=== PATIENT | female | born 1960 | race Caucasian/White ===

== ENCOUNTER → 2024-06-13 | Outpatient (CLI) | payer BC, SELFPAY ==
[2024-06-13 12:43] LABS: Absolute Lymphocyte Count 1.45 X10^3/uL (0.83-4.51); Absolute Neutrophil Count 3.7 X10^3/uL (2.0-7.7); Basophil# 0.05 X10^3/uL; Basophil% 0.9 % (0-1); Eosinophil# 0.17 X10^3/uL; Eosinophils% 2.9 % (0-5); Hematocrit 44.4 % (37-47); Hemoglobin 14.6 g/dL (12.0-15.0); Lymphocyte # 1.45 X10^3/ul (0.83-4.51); Mean Corp Hgb Conc 32.9 g/dL (32-36); Mean Corpuscular Hgb 31.3 pg (27.0-32.0); Mean Corpuscular Volume 95.1 fL (81-99); Mean Platelet Vol. 8.7 fl (6.2-12.0); Monocyte# 0.38 X10^3/uL; Monocyte% 6.6 % (0-10); NRBC Flagged by Analyzer 0 % (0-5); Neutrophil # 3.73 X10^3/uL (2.7-7.7); Neutrophil % 64.3 % (47-70); Platelet Count 271 K/mm3 (150-450); RBC Distribution Width CV 12.5 % (11.6-14.6); RBC Distribution Width SD 43.5 fl (35.1-43.9); Red Blood Count 4.67 M/mm3 (4.2-5.4); White Blood Count 5.8 K/mm3 (4.4-11.0)
[2024-06-13 14:21] LABS: ALB/GLOB Ratio 1.6 RATIO (0.9-2.4); AST(SGOT) 22 U/L (<=31); Alanine Aminotransfer ALT/SGPT 21 U/L (<=34); Albumin, Serum 4.4 g/dL (3.4-4.8); Alkaline Phosphatase 73 U/L (35-104); Anion Gap 11 (5-15); BUN 16 mg/dL (4-19); BUN/Creat Ratio 20.3 RATIO (10-20); Calcium,Total 9.2 mg/dL (7.6-11.0); Carbon Dioxide 28.1 mmol/L (21.0-32.0); Chloride 104 mmol/L (98-108); EST Glomerular Filtration Rate 81 (>60); Globulin 2.8 g/dL (2.2-4.2); Glucose 95 mg/dL (70-99); Potassium 4.4 mmol/L (3.3-5.1); Protein, Total 7.2 g/dL (5.9-8.4); Sodium Level 142 mmol/L (133-145); Total Bilirubin 0.48 mg/dL (0.00-1.30)
[2024-06-15 05:07] LABS: CRP, High Sensitivity 2.98 mg/L (0.00-3.00)
== END | disposition home or self-care (01) ==
PROVIDERS: Referring Provider Nurse Practitioner Family; Visit Provider Nurse Practitioner Family
DX: R07.9 Chest pain, unspecified (principal)
CPT/HCPCS: 80053; 85025; 86141

== ENCOUNTER → 2024-06-15 | Outpatient (CLI) | payer BC, SELFPAY ==
--- NOTE | 2024-06-15 07:27 | BI_ITS ---
EXAM: SCRN MAMM (CAD)W/JELENA BILAT 06/15/2024 CLINICAL HISTORY: F, Age 63 y/o , BREAST CANCER SCREENING TECHNIQUE: Bilateral screening digital breast tomosynthesis with 2D and 3D images. Computer aided detection. COMPARISON: Prior exam(s) dated 01/25/2024, 01/21/2023.. FINDINGS: TISSUE DENSITY: The breast tissue is composed of scattered area of fibroglandular density. Bilateral Breast Mammographic Findings: No significant masses, calcifications or other abnormalities are identified. BI/SCRN MAMM (CAD)W/JELENA BILAT IMPRESSION: Right Breast: BIRADS 1 NEGATIVE. Left Breast: BIRADS 1 NEGATIVE. OVERALL FINAL ASSESSMENT: BIRADS 1 NEGATIVE. RECOMMENDATION: Routine annual follow-up in 1 Year A letter with findings and recommendations will be mailed to the patient. Reading Location: [id number]
== END | disposition home or self-care (01) ==
LOC: OPBI 07:26
PROVIDERS: PCP Nurse Practitioner Family; Referring Provider Nurse Practitioner Family; Visit Provider Nurse Practitioner Family
DX: Z12.31 Encounter for screening mammogram for malignant neoplasm of breast (principal)
CPT/HCPCS: 77063; 77067

== ENCOUNTER → 2024-06-28 | Outpatient (CLI) | payer BC, SELFPAY ==
--- NOTE | 2024-06-28 12:17 | CT_ITS ---
PROCEDURE: ABDOMEN/PELVIS WITH CONTRAST 06/28/2024 REASON FOR EXAM: Right-sided abdominal pain. Gastroesophageal reflux. Prior partial colon resection. TECHNIQUE: Abdomen and pelvis CT with intravenous contrast. Coronal and Sagittal reconstruction series were provided. PATIENT PREPARATION: Per protocol ORAL CONTRAST TYPE: Oral contrast was given. CONTRAST: Isovue-300 VOLUME: 100 mL One or more dose reduction techniques were used (e.g., Automated exposure control, adjustment of the mA and/or kV according to patient size, use of iterative reconstruction technique. RADIATION DOSE SUMMARY: CTDlvol: 11.2 mGy DLP: 1043.99 mGycm COMPARISON: None FINDINGS: Lung bases: Mild dependent atelectasis Liver: Normal size. No mass. Gallbladder: Surgically absent. Spleen: Normal size. Pancreas: Normal size without evidence of mass surrounding inflammation or ductal dilation. Adrenals: Unremarkable Kidneys: Minimal bilateral renal fullness although no evidence of hydronephrosis. Bladder: Unremarkable Reproductive Organs: Prior hysterectomy. Adnexal regions are unremarkable. Bowel: No bowel obstruction. Appendix: Surgically absent. Lymph nodes: Unremarkable. Vasculature: The abdominal aorta and IVC are normal. Peritoneum / Retroperitoneum: Unremarkable Bones: Degenerative changes of the spine. CT/Abdomen/Pelvis WITH Contrast IMPRESSION: Mild fatty infiltration of the liver. Status post cholecystectomy and hysterectomy. Status post appendectomy. Reading Location: [place] [id number]
== END | disposition home or self-care (01) ==
PROVIDERS: PCP Nurse Practitioner Family; Referring Provider Student in an Organized Health Care Education/Training Program; Visit Provider Student in an Organized Health Care Education/Training Program
DX: R10.9 Unspecified abdominal pain (principal); Z87.19 Personal history of other diseases of the digestive system
CPT/HCPCS: 74177; Q9967; A4216

== ENCOUNTER 2024-08-24 12:09 | Day surgery (SDC) | payer MEDICARE, SELFPAY ==
[2024-08-24] VITALS (9 sets, daily range): BP systolic 96–128; BP diastolic 58–79; PULSE 64–97; RESP 16–18; TEMP 36.6–36.8; O2SAT 94–100; BMI 27.8
--- NOTE | 2024-08-24 12:50 | PRE.ANES_ITS ---
ASA Classification* ASA Classification ASA Classification: 2 Assessment & Plan Anesthesia* Anesthesia Assessment Anesthesia Assessment: Discussed sedation and/or anesthesia options, risks, benefits, and alternatives with patient/parents/legal guardian/POA. Questions invited. The patient/parents/legal guardian/POA seems to understand and agrees to proceed with anesthesia plan. Reviewed the physical assessment, medical history, allergy history and patient home medications list prior to surgery/procedure/anesthetic and documented any changes. Performed airway and anesthesia risk assessments. Anesthesia Type Anesthesia Type: MAC Anesthesia Focused Assessment* Temperature: 98.3 F Pulse Rate: 64 Blood Pressure: 128/79 Respiratory Rate: 16 Pulse Ox: 96 Airway Assessment Mouth opens: >3 cm Mallampati Score: II Labs Anesthesia Preop lab: CBC WBC 5.8 K/mm3 (4.4-11.0) 06/13/24 10:53 06/13/24 RBC 4.67 M/mm3 (4.2-5.4) 06/13/24 10:53 06/13/24 Hgb 14.6 g/dL (12.0-15.0) 06/13/24 10:53 06/13/24 Hct 44.4 % (37-47) 06/13/24 10:53 06/13/24 Plt Count 271 K/mm3 (150-450) 06/13/24 10:53 06/13/24 CHEMISTRY Potassium 4.4 mmol/L (3.3-5.1) 06/13/24 10:53 06/13/24 Sodium 142 mmol/L (133-145) 06/13/24 10:53 06/13/24 BUN 16 mg/dL (4-19) 06/13/24 10:53 06/13/24 Creatinine 0.80 mg/dL (0.70-1.20) 06/13/24 10:53 06/13/24 Glucose 95 mg/dL (70-99) 06/13/24 10:53 06/13/24 COAG Pre-Assessment Diagnosis/Proposed Procedure Planned Operative Procedure(s): EGD, CSCOPE Anesthesia History 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 When Was Last Pacemaker Check QUESTION #4 FULL TEXT: You/Your Family Experience fever (hyperthermia) with Anesthesia Last Oral Intake Last Oral intake: Last Oral Intake NPO since Meds taken in AM with sips of water? Meds patient instructed to take am of surgery PONV PONV - sales project manager: PONV - sales project manager Female Yes 08/21/24 14:28 HX of Motion Sickness No 08/21/24 14:28 HX of N/V After Surgery No 08/21/24 14:28 Non-Smoker Yes 08/21/24 14:28 Duration of Surgery greater No 08/21/24 14:28 than 60 minutes Number of Risk Factors 2 08/21/24 14:28 PONV Score Moderate Risk 08/21/24 14:28 Height & Weight Height & Weight: Anesthesia: Height & Weight Height 6 ft 08/24/24 12:15 Weight: 93 kg 08/24/24 12:15 Body Mass Index (BMI) 27.8 08/24/24 12:15 Respiratory Assessment Respiratory Assessment - sales project manager: Respiratory Tract Infection Hx - sales project manager Hx Respiratory Tract Infection No 08/21/24 14:28 STOP Sleep Apnea STOP Sleep Apnea - sales project manager: STOP Sleep Apnea - sales project manager Hx Hypertension No 08/21/24 14:28 Hx Sleep Apnea No 08/21/24 14:28 CPAP BIPAP Do you snore loudly (louder No 08/21/24 14:28 than talking or can be heard Do you often feel tired/ No 08/21/24 14:28 fatigued/ sleepy during daytime? Has anyone observed you stop No 08/21/24 14:28 breathing during sleep? STOP Results Negative 08/21/24 14:28 QUESTION #5 FULL TEXT : Do you snore loudly (louder than talking or can be heard through closed doors)? Tobacco Use History Tobacco Use History - sales project manager: Tobacco Use History - sales project manager Tobacco Use Smoking Status Never smoker 08/21/24 14:28 Hx Tobacco Use No 08/21/24 14:28 Years Smoking Packs Smoked per Day Smoking Cessation Date was within the last 15 years Hx Smoking Cessation Date Hx Smoking Cessation Counseling Hematologic Medial History Hematologic Hx - sales project manager: Hematologic Medical Hx - director operating room Hx of Blood Transfusion No 08/21/24 14:28 Hx of Transfusion in last 3 No 08/21/24 14:28 Months Date of Last Transfusion (if within last 3 months) Ever experience any problems No 08/21/24 14:28 with transfusion(s)? Specify any problems Hx of Preganancy in last 3 N/A 08/21/24 14:28 Months Nurse Filling Out Transfusion NBUCHER 08/21/24 14:28 & Questions: Date: 08/21/24 08/21/24 14:28 Time: 14:29 08/21/24 14:28 Patient unable to answer at this time (ie. confused, unrespo /Reproduction History /Reproductive History - sales project manager: /Reproductive Hx- sales project manager Hx Now No 08/21/24 14:28 Gestational Age (in weeks): EDC: Hx Hx Para Hx Section SAB No 08/21/24 14:28 Active Medications Active Medications: Current Medications Generic Name Dose Route Start Last Admin Trade Name Freq PRN Reason Stop Dose Admin Lactated Ringer's 1,000 mls @ 15 mls/hr 08/24/24 12:30 IV .Q48H JON PFSH Medical History Hypothyroid Arthritis Thyroid disease Migraine headache History of diverticulitis Asthma Non-smoker History of stress test Home Medications ?Medication ?Instructions ?Recorded ?Last Taken ?Type levothyroxine 112 mcg tablet 112 mcg PO QDAY 06/12/24 08/24/24 05:00 History (Synthroid) polyethylene glycol 3350 17 4 g PO ONCE 06/12/24 Unkno wn History gram/dose oral powder (Miralax) sodium,potassium,mag sulfates 17.5 See Rx Instructions PO .COMPLEX 06/12/24 Unknown Rx gram-3.13 gram-1.6 gram oral soln #354 mL (Suprep Bowel Prep Kit) cabergoline 0.5 mg tablet 0.25 mg PO ZHAO 08/21/24 Unkno wn History Allergy/AdvReac Type Severity Reaction Status Date / Time penicillin G Allergy Other Verified 08/21/24 14:27 Surgical History History of appendectomy (02/10/09) History of hand surgery (12/09/22) History of left breast biopsy (01/23/12) History of cholecystectomy (09/10/18) History of umbilical hernia repair (03/11/11) History of colon resection (02/10/09) History of hernia repair (01/21/03) History of bunionectomy of left great toe History of hysterectomy (09/09/98) History of esophagogastroduodenoscopy (EGD) History of colonoscopy Review of Systems (Anesthesia) ROS Narrative System reviewed and no additional complaints, except as documented.
[2024-08-24] MEDS: Lactated Ringers 1,000 ML 15 ML IV (12:59)
--- NOTE | 2024-08-24 13:15 | EGD_PTH ---
PATIENT: KILEY SANCHEZ LOC: EN U#:[id number] AGE/SX: 63/F ROOM: RE08/24/[address]: Dr. Dante Villela DO : 1960 BED: DIS: 08/24/2024 SPEC #: [id number] RECD: 08/27/24 07:14 STATUS: RAFITA REPankaj #: [id number] REUBEN: 08/24/24 13:[address]: Dante Villela DEPT: SURGICAL PATHOLOGY RECD BY: Bello Amador ENTERED: 08/27/24 08:35 SP TYPE: EGD BIOPSY OT DR: Maile Chun, IT QUALITY ANALYST-C Tissues: A - Duodenum, NOS B - Duodenum, NOS C - Gastric mucous membrane D - Esophagus, NOS E - Cecum, NOS Procedures: Surgery Specimen Level IV HEADER OPERATION: Colonoscopy, EGD, biopsy PRE-OP DIAGNOSIS: Abdominal pain TISSUE SUBMITTED: A- Duodenal mass biopsy, B- Random duodenum biopsy, C- Gastric antrum biopsy, D- Distal esophagus biopsy, E- Cecal polyp biopsy MICROSCOPIC DIAGNOSIS A. Duodenum, mass, biopsy: Normal villous morphology with Ayz gland hyperplasia, gastric mucin cell metaplasia, and mild acute inflammation, suggestive of peptic injury. Reactive epithelial change, negative for dysplasia. Negative for increased intraepithelial lymphocytes. B. Duodenum, random, biopsy: Normal villous morphology with Yaz gland hyperplasia and focal gastric mucin cell metaplasia. Negative for increased intraepithelial lymphocytes. C. Gastric antrum, biopsy: Oxyntic and antral mucosa with features of reactive gastropathy. Negative for Helicobacter-like organisms (H&E). D. Distal esophagus, biopsy: Squamous mucosa with reactive changes and rare eosinophils. Columnar mucosa, negative for goblet cell metaplasia. E. Colon, cecum, polyp, biopsy: Serrated polyp with features of sessile serrated lesion. MICROSCOPIC DESCRIPTION Slides are reviewed. GROSS DESCRIPTION A. Received in fixative is one container labeled with the patient's name and designated Duodenal mass biopsy. The specimen consists of three irregular fragments of light georges soft tissue that in aggregate each measures 0.3 cm. The specimen is totally submitted in one cassette. B. Received in fixative is one container labeled with the patient's name and designated Random duodenum biopsy. The specimen consists of two irregular fragments of light georges soft tissue that in aggregate measure 0.3 and 0.4 cm. The specimen is totally submitted in one cassette. C. Received in fixative is one container labeled with the patient's name and designated Gastric antrum biopsy. The specimen consists of three irregular fragments of light georges soft tissue that in aggregate measure 0.4 to 0.7 cm. The specimen is totally submitted in one cassette. D. Received in fixative is one container labeled with the patient's name and designated Distal esophagus biopsy. The specimen consists of two irregular fragments of light georges soft tissue that in aggregate measure 0.5 and 0.7 cm. The specimen is totally submitted in one cassette. E. Received in fixative is one container labeled with the patient's name and designated Cecal polyp biopsy. The specimen consists of one irregular fragment of light georges soft tissue that measures 0.4 cm. The specimen is totally submitted in one cassette. Namrata 08/27/2024 CPT:15475i0
--- NOTE | 2024-08-24 13:20 | PCM.HP.STD ---
HPI - General General Date of Admission: 08/24/24 Date of Service: 08/24/24 Chief Complaint: Abdominal pain HPI Narrative KILEY SANCHEZ, is a 63 F who presents with Chief Complaint: abdominal pain PMHx diverticulitis with abscess s/p bowel resection. I established 4.1.25 with constipation and heartburn in the evening. Last EGD and colonoscopy in 2019. Pt has a hx of colonic polyps and a duodenal diverticulum. Family hx of colon cancer in her father. OV 4.17.25 Pt here today for new symptoms that started a few days ago. Pt ate leftover fish on Tuesday and then had reflux. This did not go away until she made herself vomit. Then she started to have diffuse abdominal discomfort and bloating. She felt constipated. This is similar to how she felt when she had diverticulitis with an abscess. [facility] Medical History Hypothyroid Arthritis Thyroid disease Migraine headache History of diverticulitis Asthma Non-smoker History of stress test Home Medications ?Medication ?Instructions ?Recorded ?Last Taken ?Type levothyroxine 112 mcg tablet 112 mcg PO QDAY 06/12/24 08/24/24 05:00 History (Synthroid) polyethylene glycol 3350 17 4 g PO ONCE 06/12/24 Unknown History gram/dose oral powder (Miralax) sodium,potassium,mag sulfates 17.5 See Rx Instructions PO .COMPLEX 06/12/24 Unknown Rx gram-3.13 gram-1.6 gram oral soln #354 mL (Suprep Bowel Prep Kit) cabergoline 0.5 mg tablet 0.25 mg PO ZHAO 08/21/24 Unknown History Allergy/AdvReac Type Severity Reaction Status Date / Time penicillin G Allergy Other Verified 08/21/24 14:27 Surgical History History of appendectomy (02/10/09) History of hand surgery (12/09/22) History of left breast biopsy (01/23/12) History of cholecystectomy (09/10/18) History of umbilical hernia repair (03/11/11) History of colon resection (02/10/09) History of hernia repair (01/21/03) History of bunionectomy of left great toe History of hysterectomy (09/09/98) History of esophagogastroduodenoscopy (EGD) History of colonoscopy Vital Signs Vital Signs Vital Signs: 08/24/24 12:15 08/24/24 12:15 08/24/24 12:51 Temperature 98.3 F 98.3 F Temperature Source Temporal Pulse Rate 64 64 Respiratory Rate 16 16 Respiratory Pattern Normal Blood Pressure 128/79 H 128/79 H Blood Pressure Mean 95 Blood Pressure Source Monitor Blood Pressure Position Semi-Fowlers Blood Pressure Location Right Arm Pulse Ox 96 96 Oxygen Delivery Method Room Air Weight Weight: 205 lb 0.478 oz Body Mass Index (BMI) 27.8 Physical Exam Const alert, oriented x3, no apparent distress and healthy appearing General Appearance: cooperative GI normal to inspection, nondistended, normoactive bowel sounds, soft to palpation, non-tender and non-distended Percussion: normal to percussion Rectal Exam: deferred Assessment & Plan Assessment/Plan (1) Abdominal pain: QUALIFIERS: Abdominal location: generalized Qualified Code(s): R10.84 - Generalized abdominal pain (2) Hx of diverticulitis of colon: (3) History of partial colectomy: (4) Screening for colon cancer: PLAN: Assessment and Plan Assessment and Plan (1) Abdominal pain: Status: Acute Qualifiers: Abdominal location: generalized Qualified Code(s): R10.84 - Generalized abdominal pain Plan: This is a 63 yo female pt here today for evaluation of abdominal pain x5 days. Pt ate a piece of leftover fish and then had severe reflux, vomiting, abdominal bloating and discomfort. She continues to have the discomfort and some constipation. This feels similar to when she had diverticulitis in the past. I will order a stat CT abd/pelvis to rule out an acute episodes of diverticulitis. Pt is already scheduled for an upcoming EGD and colonoscopy. Will consider treatments pending CT results. -CT abd/pelvis -Pt scheduled for EGD and colonoscopy -Consider treatment pending CT results -f/u after testing (2) Hx of diverticulitis of colon: Status: Acute Orders:
--- NOTE | 2024-08-24 14:41 | PCM.POST.ANE ---
Anesthesia: Postop Eval I Current Vital Signs Temperature: 97.8 F Pulse Rate: 97 Blood Pressure: 96/73 Respiratory Rate: 18 Pulse Ox: 96 Oxygen Delivery Method: Room Air Assessment Airway patent: Yes Spontaneous unlabored respirations: Yes Mental status: Awake and Calm nausea: No Vomiting: No Anesthesia Complication: No Fluid Hydration Crystalloid volume administer (ml): 700 Total IV fluid infused: 700 Progress Note Anesthesia document: Postop Eval 1 completed: Yes
--- NOTE | 2024-08-24 14:43 | OP.EGD_ITS ---
Patient Name: Nanette Sky Procedure Date: 08/24/2024 1:51 PM Date of : 1960 Age: 63 Procedure: Upper GI endoscopy Indications: Epigastric abdominal pain, Functional Dyspepsia, Suspected esophageal reflux Providers: Dante Villela DO Medicines: Monitored Anesthesia Care Patient Profile: This is a 63 year old female. Refer to note in patient chart for documentation of history and physical. Patient has symptoms of acute epigastric abdominal pain and acute dyspepsia. Complications: No immediate complications. Procedure: Pre-Anesthesia Assessment: - Prior to the procedure, a History and Physical was performed, and patient medications and allergies were reviewed. The patient is competent. The risks and benefits of the procedure and the sedation options and risks were discussed with the patient. All questions were answered and informed consent was obtained. Patient identification and proposed procedure were verified by the physician in the pre-procedure area. Mental Status Examination: alert and oriented. Airway Examination: normal oropharyngeal airway and neck mobility. Respiratory Examination: clear to auscultation. CV Examination: normal. Prophylactic Antibiotics: The patient does not require prophylactic antibiotics. Prior Anticoagulants: The patient has taken no anticoagulant or antiplatelet agents. ASA Grade Assessment: II - A patient with mild systemic disease. After reviewing the risks and benefits, the patient was deemed in satisfactory condition to undergo the procedure. The anesthesia plan was to use monitored anesthesia care (MAC). Immediately prior to administration of medications, the patient was re-assessed for adequacy to receive sedatives. The heart rate, respiratory rate, oxygen saturations, blood pressure, adequacy of pulmonary ventilation, and response to care were monitored throughout the procedure. The physical status of the patient was re-assessed after the procedure. After obtaining informed consent, the endoscope was passed under direct vision. Throughout the procedure, the patient's blood pressure, pulse, and oxygen saturations were monitored continuously. The Colonoscope was introduced through the mouth, and advanced to the fourth part of the duodenum. Small bowel enteroscopy was deemed necessary. The upper GI endoscopy was accomplished without difficulty. The patient tolerated the procedure well. Scope In: 2:09:08 PM Scope Out: 2:15:42 PM Total Procedure Duration Time 0 hours 6 minutes 34 seconds Findings: The Z-line was irregular and was found 40 cm from the incisors. Biopsies were taken with a cold forceps for histology. Patchy mildly erythematous mucosa without bleeding was found in the gastric body. Biopsies were taken with a cold forceps for histology. Biopsies were taken with a cold forceps for histology. Verification of patient identification for the specimen was done. Estimated blood loss was minimal. Biopsies were taken with a cold forceps for Helicobacter pylori testing. Verification of patient identification for the specimen was done. Estimated blood loss was minimal. A large polypoid mass with no bleeding was found in the first portion of the duodenum. Biopsies were taken with a cold forceps for histology. Verification of patient identification for the specimen was done. Estimated blood loss was minimal. Impression: - Z-line irregular, 40 cm from the incisors. Biopsied. - Erythematous mucosa in the gastric body. Biopsied. 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 Biopsied. Recommendation: - Discharge patient to home. - Resume previous diet. - Continue present medications. - Await pathology results. Procedure Code(s): --- Professional --- 17232, Small intestinal endoscopy, enteroscopy beyond second portion of duodenum, not including ileum; with biopsy, single or multiple CPT copyright 2021 [employer]. All rights reserved. The codes documented in this report are preliminary and upon computer language coder review may be revised to meet current compliance requirements. Dante Villela DO 08/24/2024 2:42:29 PM This report has been signed electronically. Number of Addenda: 0 Note Initiated On: 08/24/2024 1:51 PM
--- NOTE | 2024-08-24 14:43 | OP.CCLET_ITS ---
08/24/2024 Luis Kevin Re : Upper GI endoscopy procedure for Nanette Sky Dear Adiel This procedure was performed on Saturday, August 24, 2024. My impressions and recommendations are as follows: Impressions : - Z-line irregular, 40 cm from the incisors. Biopsied. - Erythematous mucosa in the gastric body. Biopsied. 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 Biopsied. Recommendations : - Discharge patient to home. - Resume previous diet. - Continue present medications. - Await pathology results. My findings are described in the full procedure note, which is enclosed. If I can be of further assistance, please feel free to contact me at . Sincerely, Dante Villela, 08/24/2024 2:42:29 PM This report has been signed electronically.
--- NOTE | 2024-08-24 14:52 | OP.COLON_ITS ---
Patient Name: Nanette Sky Procedure Date: 08/24/2024 2:15 PM Date of : 1960 Age: 63 Procedure: Colonoscopy Indications: Screening for colorectal malignant neoplasm Providers: Dante Villela DO Medicines: Monitored Anesthesia Care Patient Profile: This is a 63 year old female. Refer to note in patient chart for documentation of history and physical. Patient has symptoms of acute epigastric abdominal pain and acute dyspepsia. This is a 63 year old female. Refer to note in patient chart for documentation of history and physical. Last Colonoscopy: several years ago. Complications: No immediate complications. Procedure: Pre-Anesthesia Assessment: - Prior to the procedure, a History and Physical was performed, and patient medications and allergies were reviewed. The patient is competent. The risks and benefits of the procedure and the sedation options and risks were discussed with the patient. All questions were answered and informed consent was obtained. Patient identification and proposed procedure were verified by the physician in the pre-procedure area. Mental Status Examination: alert and oriented. Airway Examination: normal oropharyngeal airway and neck mobility. Respiratory Examination: clear to auscultation. CV Examination: normal. Prophylactic Antibiotics: The patient does not require prophylactic antibiotics. Prior Anticoagulants: The patient has taken no anticoagulant or antiplatelet agents. ASA Grade Assessment: II - A patient with mild systemic disease. After reviewing the risks and benefits, the patient was deemed in satisfactory condition to undergo the procedure. The anesthesia plan was to use monitored anesthesia care (MAC). Immediately prior to administration of medications, the patient was re-assessed for adequacy to receive sedatives. The heart rate, respiratory rate, oxygen saturations, blood pressure, adequacy of pulmonary ventilation, and response to care were monitored throughout the procedure. The physical status of the patient was re-assessed after the procedure. After I obtained informed consent, the scope was passed under direct vision. Throughout the procedure, the patient's blood pressure, pulse, and oxygen saturations were monitored continuously. The Colonoscope was introduced through the anus and advanced to the cecum, identified by appendiceal orifice and ileocecal valve. The entire colon was examined. Scope In: 2:17:56 PM Scope Withdrawal Time 0 hours 8 minutes 29 seconds Scope Out: 2:29:21 PM Total Procedure Duration Time 0 hours 11 minutes 25 seconds Findings: The perianal and digital rectal examinations were normal. A 4 mm polyp was found in the cecum. The polyp was sessile. The polyp was removed with a jumbo cold forceps. Resection and retrieval were complete. Biopsies were taken with a cold forceps for histology. There was evidence of a prior end-to-side colo-colonic anastomosis in the recto-sigmoid colon. This was patent and was characterized by healthy appearing mucosa. The anastomosis was traversed. Impression: - One 4 mm polyp in the cecum, removed with a jumbo cold forceps. Resected and retrieved. Biopsied. - Patent end-to-side colo-colonic anastomosis, characterized by healthy appearing mucosa. Recommendation: - Discharge patient to home. - Resume previous diet. - Continue present medications. - Await pathology results. - Repeat colonoscopy in 5 years for surveillance. Procedure Code(s): --- Professional --- 25047, Colonoscopy, flexible; with biopsy, single or multiple CPT copyright 2021 [employer]. All rights reserved. The codes documented in this report are preliminary and upon coal loader review may be revised to meet current compliance requirements. Dante Villela DO 08/24/2024 2:51:30 PM This report has been signed electronically. Number of Addenda: 0 Note Initiated On: 08/24/2024 2:15 PM
--- NOTE | 2024-08-24 14:52 | OP.CCLET_ITS ---
08/24/2024 Luis Kevin Re : Colonoscopy procedure for Nanette Sky Dear Adiel This procedure was performed on Saturday, August 24, 2024. My impressions and recommendations are as follows: Impressions : - One 4 mm polyp in the cecum, removed with a jumbo cold forceps. Resected and retrieved. Biopsied. - Patent end-to-side colo-colonic anastomosis, characterized by healthy appearing mucosa. Recommendations : - Discharge patient to home. - Resume previous diet. - Continue present medications. - Await pathology results. - Repeat colonoscopy in 5 years for surveillance. My findings are described in the full procedure note, which is enclosed. If I can be of further assistance, please feel free to contact me at . Sincerely, Dante Villela, 08/24/2024 2:51:30 PM This report has been signed electronically.
--- NOTE | 2024-08-24 15:17 | PCM.POSTANE2 ---
Anesthesia Postop Eval I Sum Postop Eval Completion status Anesthesia document: Postop Eval 1 completed: Yes Anesthesia Postop Eval I Summary Anesthesia Postop Eval I Summary: Anesthesia Postop Eval I: Assessment Summary Airway patent Yes 08/24/24 14:42 [email or web address] Spontaneous unlabored Yes 08/24/24 14:42 [email or web address] respirations Mental status Awake,Calm 08/24/24 14:42 [email or web address] nausea No 08/24/24 14:42 [email or web address] Vomiting No 08/24/24 14:42 [email or web address] Anesthesia Postop Eval I: Fluid Summary Crystalloid volume administer 700 08/24/24 14:42 [email or web address] (ml) Colloids volume administered ( ml) Blood Product volume administered (ml) Total IV fluid infused 700 08/24/24 14:42 [email or web address] Anesthesia Postop Eval I: Summary Notes Anesthesia Complication No 08/24/24 14:42 [email or web address] Anesthesia Complication Comment: Post-operative progress note Anesthesia: Postop Eval II Evaluation Mental status: Awake Pain Level: 0 nausea: No Vomiting: No
== END 2024-08-24 15:28 | disposition home or self-care (01) ==
LOC: EN 12:11 → AC 12:12
PROVIDERS: PCP Nurse Practitioner Family; Referring Provider Nurse Practitioner Family; Visit Provider Internal Medicine Gastroenterology
PROC: 0DJD8ZZ Inspection of Lower Intestinal Tract, Via Natural or Artificial Opening Endoscopic (ICD-10-PCS; CPT 45378; principal; 2024-08-24 13:10)
DX: Z12.11 Encounter for screening for malignant neoplasm of colon (principal); R10.13 Epigastric pain; E03.9 Hypothyroidism, unspecified; K31.89 Other diseases of stomach and duodenum; K63.5 Polyp of colon; Z79.899 Other long term (current) drug therapy
CPT/HCPCS: 43239; 45380; 88305; J2405

== ENCOUNTER → 2024-10-29 | Outpatient (CLI) | payer MEDICARE, SELFPAY ==
--- NOTE | 2024-10-29 07:29 | US_ITS ---
PROCEDURE: ABD LIMITED W/ ELASTOGRAPHY REASON FOR EXAM: FATTY LIVER COMPARISON: Prior CT scan of the abdomen and pelvis dated June 28, 2024. TECHNIQUE: Right upper quadrant abdominal ultrasound. [facility] ElastQ Imaging shear wave elastography for non-invasive assessment of liver tissue stiffness. [facility] EPIQ Elite. FINDINGS: LIVER: Size: Unremarkable Length: 17.9 cm Echotexture: Diffusely echogenic suggesting fatty infiltration Contour: Normal Lesions: None identified Elastography: EQI Med: 8.0 kPa EQI Med Maurice: 1.62 m/s IQR/Med: 16.2 %* GALLBLADDER: Surgically absent. COMMON BILE DUCT: Normal measuring 4 mm . PANCREAS: Visualized portions are unremarkable. The distal body and tail are obscured by bowel gas. Visualized portions of the right kidney are unremarkable. No right upper quadrant ascites. US/ABD Limited w/ Elastography IMPRESSION: [id number] hepatic fibrosis. Borderline hepatomegaly. Fatty infiltration of the liver. Reference Values: SRU <1.37 m/s (5.7kPa): No to mild fibrosis 1.37 m/s - 2.2 m/s: Moderate to severe fibrosis >2.2 m/s (15kPa): Significant fibrosis / cirrhosis METAVIR Score F2 or higher: 1.34 m/s (5.7kPa) F3 or higher: 1.55 m/s (7.3kPa) F4: 1.80 m/s (10kPa) * If the IQR/Med is >30%, the variance in the measurements is a large and the a ccuracy of the measurement may be in question. Reading Location: [facility]
--- OUTSIDE RECORDS SUMMARY | 2024-10-29 07:48 | XMS RPT_ITS | CCD ---
Author Organization [facility] CliniSynv Care Team Providers Care Tenter Frame Operator Name Role Phone Unavailable Primary Care Provider UnavailBushra Madden Attending Provider [phone] Sandy FIERRO, Dr. Polanco Attending Provider Adiel DESULFURIZER HAND-C, Maile Attending Provider [phone] Adiel DESULFURIZER HAND-C, Maile Referring Provider Adiel DESULFURIZER HAND-C, Maile Primary Care Provider [phone] SELF Referring Unavailable BENDLAWRENCE ROMERO CUMMINS Attending Unavaila ble LAWRENCE FINCH CUMMINS Referring Unavaila Bushra Subramanian Referring Provider Dr. Dante Villela DO Attending Provider Dr. Dante Villela DO Other Provider Bianca Chunyn Primary Care Unavailable Bushra May Attending Unavailable Maile Chun Referring Unavailable Bushra May Attending Unavailable Maile Chun Referring Unavailable Adiel, Maile Primary Care Unavailable Dante Villela Attending Unavailable Collin Delgado Attending Unavailable Bushra May Referring Unavailable Adiel, Maile Primary Care Unavailable Bushra May Attending Unavailable Adiel, Maile Primary Care Unavailable AdielBiancayn Attending Unavailable Adiel, Maile Referring Unavailable Adiel, Maile Referring Unavailable AdielMaile Attending Unavailable Adiel, Maile Primary Care Unavailable Bsuhra May Referring Unavailable Bushra May Attending Unavailable Bushra May Attending Unavailable Adiel, Maile Primary Care Unavailable Adiel, Maile Referring Unavailable Adiel, Maile Primary Care Unavailable Dante Villela Consulting Unavailable Dante Villela Attending Unavailable Adiel Maile Referring Unavailable Allergies Allergy Classification Reported Allergen(s) Allergy Type Date of Onset Reaction(s) Facility (2 sources) Penicillins; Translations: [PENICILLINS] Drug Allergy 04-03-2008 Unknown [facility] Work Phone: (4 sources) Penicillin G Drug Allergy 06-12-2024 Other [facility] (1 source) Penicillin Drug Allergy 08-21-2024 [facility] Repository Medications Current Medications Medication Drug Class(es) Dates Sig (Normalized) Sig (Original) acyclovir 0.05 mg/mg topical ointment (1 source) Herpesvirus Nucleoside Analog DNA Polymerase Inhibitor, Herpes Simplex Virus Nucleoside Analog DNA Polymerase Inhibitor, Herpes Zoster Virus Nucleoside Analog DNA Polymerase Inhibitor Start: 07-04-2015 acyclovir (ZOVIRAX) 5 % ointment Indications: Herpes Apply 1 application to affected area five times daily. 30 g 6 07/04/2015 Active ascorbic acid 1000 mg oral tablet (1 source) Vitamin C take 1 tablet by mouth once daily Ascorbic Acid (VITAMIN C) 1,000 mg tablet Take 1,000 mg by mouth once daily. Active ascorbic acid/collagen hydr (COLLAGEN SKIN RENEWAL ORAL) (1 source) ascorbic acid/collagen hydr (COLLAGEN SKIN RENEWAL ORAL) Take by mouth two times a day. Active cabergoline 0.5 mg oral tablet (3 sources) Ergot Derivative Start: 08-21-2024 Cabergoline 0.5 mg tablet Active 0.25 mg PO ZHAO August 21, 2024 12:00am Start: 06-29-2022 take 0.25 mg by mout h every week cabergoline (DOSTINEX) 0.5 mg tablet Take 0.25 mg by mouth one time a week. 06/29/2022 Active Calcium Carbonate / vitamin D3 (1 source) calcium carbonate/vitamin D3 (CALTRATE 600 + D ORAL) Take by mouth. Active cetirizine hydrochloride 10 mg oral tablet (1 source) Histamine-1 Receptor Antagonist Start: 08-24-19 24 take 1 tablet by mouth once daily cetirizine (ZYRTEC) 10 mg tablet Take 1 tablet by mouth once daily. 08/24/2023 Active levothyroxine sodium 0.112 mg oral tablet (5 sources) l-Thyroxine Start: 11-08-19 take 1 tablet by mouth once daily Levothyroxine (Synthroid) 112 mcg tablet Active 112 ug PO daily June 12, 2024 12:00am Sodium,Potassium,Mag Sulfates (4 sources) Start: 06-13-19 25 Sodium,Potassium,Mag Sulfates (Suprep Bowel Prep Kit) 17.5-3.13-1.6 gram recon soln Active 0 PO .COMPLEX 354 0 June 12, 2024 12:00am take as per instructions Start: 06-12-2024 Sodium,Potassi um,Mag Sulfates (Suprep Bowel Prep Kit) 17.5-3.13-1.6 gram recon soln Active 0 PO .COMPLEX 354 June 12, 2024 12:00am take as per instructions omega-3/dha/epa/dpa/fish oil (OMEGA-3 2100 ORAL) (1 source) omega-3/dha/epa/ dpa/fish oil (OMEGA-3 2100 ORAL) Take by mouth. Active omeprazole 20 mg delayed release oral capsule (1 source) Proton Pump Inhibitor Star t: 07 9-20 25 take 1 capsule by mouth once daily Omeprazole 20 mg capsule,delayed release(DR/EC) Active 20 mg PO daily September 19, 2024 12:00am polyethylene glycol 3350 33351 mg powder for oral solution (4 sources) Osmotic Laxative Star t: 040 1-20 25 Polyethylene Glycol 3350 (Miralax) 17 gram/dose powder Active 4 g PO ONCE June 12, 2024 12:00am VITAMIN D2-VITAMIN K1 ORAL (1 source) VITAMIN D2-VITAM IN K1 ORAL Take by mouth. Active Problems Active Problems Problem Classification Problem Date Documented Da te Episodic/Chronic Abdominal pain (8 sources) Abdominal pain; Translations: [Unspecified abdominal pain] Onset: 08-03-2024 06-28-2024 Episodic Administrative/social admission (8 sources) Support system deficit; Translations: [Other problems related to medical facilities and other health care] 06-12-2024 Episodic Complications of surgical procedures or medical care (2 sources) Postablative hypothyroidism; Translations: [Postprocedural hypothyroidism] Onset: 06-12-2024 06-12-2024 Chronic Menopausal disorders (1 source) Menopausal symptom; Translations: [Menopausal and female climacteric states] Onset: 10-02-2008 10-02-2008 Chronic Nutritional deficiencies (1 source) Vitamin D deficiency; Translations: [Vitamin D deficiency, unspecified] Onset: 10-02-2008 10-02-2008 Chronic Other gastrointestinal disorders (6 sources) History of diverticulitis; Translations: [Personal history of other diseases of the digestive system] 06-28-2024 Episodic Other gastrointestinal disorders (2 sources) Personal history of other diseases of the digestive system; Translations: [Personal history of other diseases of the digestive system] Onset: 06-28-2024 Episodic Other liver diseases (2 sources) Steatosis of liver; Translations: [Fatty (change of) liver, not elsewhere classified] 09-19-2024 Chronic Other liver diseases (2 sources) Fatty (change of) liver, not elsewhere classified; Translations: [Fatty (change of) liver, not elsewhere classified] Onset: 09-19-2024 Chronic Other screening for suspected conditions (not mental disorders or infectious disease) (13 sources) Patient encounter status; Translations: [Encounter for screening for malignant neoplasm of colon] Onset: 06-20-2024 06-12-2024 Episodic Residual codes; unclassified (10 sources) History of partial resection of colon; Translations: [Acquired absence of other specified parts of digestive tract] 06-12-2024 Episodic Residual codes; unclassified (1 source) Acquired absence of other specified parts of digestive tract; Translations: [Acquired absence of other specified parts of digestive tract] Onset: 09-06-2024 Episodic Thyroid disorders (2 sources) Non-toxic multinodular goiter; Translations: [Nontoxic multinodular goiter] Onset: 04-03-2008 Resolved: 04-03-2008 04-03-2008 Chronic Unclassified (9 sources) Does not have primary care provider; Translations: [Z75.8 - Other problems related to medical facilities and other health care] Past or Other Problems Problem Classification Problem Date Documented Da te Episodic/Chronic Acquired foot deformities (1 source) Bunion; Translations: [Bunion of left foot] Onset: 01-31-2012 01-31-2012 Episodic Nonspecific chest pain (1 source) Chest pain, unspecified; Translations: [Chest pain, unspecified] Onset: 06-18-2024 Episodic Results Test Name Value Interpretation Reference Range Facility Gastroenterology Visit Repor ton 09-19-2024 Gastroenterology Visit Report [facility] Gastroenterology [address] [place] [address] OFFICE VISIT Date of Service: 09/19/24 MR#: [id number] Acct: [id number] Name: NANETTE SKY Rep #: [id number] : 1960 Provider: BULMARO Gonzalez Age/Sex: 64/F Location: [facility] Status: Signed Intake Vital Signs 08/24/24 12:15 Height 6 ft Intake Visit Reasons: Test Results Chief Complaint: abdominal pain Allergies penicillin G Allergy (Verified 08/21/24 14:27) Other Have you fallen in the past year?: No Nurse's Note: OV 09/19/24 Pt here for a f/u on test results and reports gas and bloating. No changes to report since last in office visit and reports no medication changes. [facility] Medical History Hypothyroid Arthritis Thyroid disease Migraine headache History of diverticulitis Asthma Non-smoker History of stress test Surgical History History of appendectomy (02/10/09) History of hand surgery (12/09/22) History of left breast biopsy (01/23/12) History of cholecystectomy (09/10/18) History of umbilical hernia repair (03/11/11) History of colon resection (02/10/09) History of hernia repair (01/21/03) History of bunionectomy of left great toe History of hysterectomy (09/09/98) History of esophagogastroduodenoscopy (EGD) History of colonoscopy Social History Smoking Status: Never smoker HPI HPI Chief Complaint: abdominal pain Details: NANETTE SKY, is a 64 F who presents to the office today for f/u. PMHx diverticulitis with abscess s/p bowel resection. BGI established 4.1.25 with constipation and heartburn in the evening. Last EGD and colonoscopy in 2019. Pt has a hx of colonic polyps and a duodenal diverticulum. Family hx of colon cancer in her father. OV 4.17.25 Pt here today for new symptoms that started a few days ago. Pt ate leftover fish on Tuesday and then had reflux. This did not go away until she made herself vomit. Then she started to have diffuse abdominal discomfort and bloating. She felt constipated. This is similar to how she felt when she had diverticulitis with an abscess. CT abd/pelvis 06.28.24;Mild fatty infiltration of the liver. Status post cholecystectomy and hysterectomy. Status post appendectomy. EGD 08.24.24; - Z-line irregular, 40 cm from the incisors. Biopsied. - Erythematous mucosa in the gastric body. Biopsied. 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 Biopsied Colonoscopy 08.24.24 One 4 mm polyp in the cecum, removed with a jumbo cold forceps. Resected and retrieved. Biopsied. - Patent end-to-side colo-colonic anastomosis, characterized by healthy appearing mucosa. OV 09.19.24 Pt here today to discuss findings of endoscopy. She is doing well/. SHe has intermittent heartburn. SHe is having a bm 3x per day. ROS Const Constitutional: No anorexia, fatigue, fever(s), weight change or sleep problems Eyes Eyes: No change in vision ENT ENT: No abnormal hearing, difficulty swallowing, mouth lesions, tongue swelling or throat swelling Resp Respiratory: No cough or shortness of breath Cardio Cardiology: No chest pain at rest, chest pain with exertion, shortness of breath or dyspnea on exertion Gastro GI: Positive for bloating and excessive flatus; No difficulty swallowing Genitourinary-Female: No difficulty urinating or burning urination Musc Musculoskeletal: Positive for back pain, Arthritis and sciatica Skin Skin: No hair loss in leg, yellowing of the eye, itchy eyes, rash, skin ulcer or skin swelling Neuro Neurology: No abnormal hearing, abnormal movements, confusion, unsteady gait/balance or memory loss Psych Psychiatric: No anxiety, No confusion and No memory loss Endo Endocrine: No fatigue or weight change Aller/Imm Allergy/Immunologic: No itchy eyes, throat swelling or tongue swelling Ranjeet/Lymp Hematologic/Lymphatic: Positive for easy bruising Exam Const General: cooperative, healthy appearing and comfortable Orientation: alert [facility] Head: normal to inspection Eyes General: appearance normal, both eyes and all related structures Neck Neck: normal visual inspection Chest Chest palpation inspection: normal inspection of the chest Resp Effort Inspection: normal respiratory effort Cardio Rate: regular rate Rhythm: regular rhythm GI Inspection: normal to inspection Palpation: soft and nontender Assessment and Plan Assessment and Plan (1) Fatty liver: Status: Acute Plan: Nanette is a 64 yo female pt with PMHx of diverticulitis with abscess and colon resection here today to review EGD and colonoscopy results. Colonoscopy showing normal colon, normal anastomosis and a sessile serrated p (more content not included)... [facility] Colonoscopy Reporton 025 Colonoscopy Report [facility] Medical Records Department [address] [place] [address] Colonoscopy Report MR#: [id number] Acct: [id number] Name: NANETTE SKY LEON Rep #: [id number] : 1960 63 From: Dante Villela DO PCP: TITO KevinC Status:REG [facility] Patient Name: Nanette Sky Procedure Date: 08/24/2024 2:15 PM Date of : 1960 Age: 63 Procedure: Colonoscopy Indications: Screening for colorectal malignant neoplasm Providers: Dante Villela DO Medicines: Monitored Anesthesia Care Patient Profile: This is a 63 year old female. Refer to note in patient chart for documentation of history and physical. Patient has symptoms of acute epigastric abdominal pain and acute dyspepsia. This is a 63 year old female. Refer to note in patient chart for documentation of history and physical. Last Colonoscopy: several years ago. Complications: No immediate complications. Procedure: Pre-Anesthesia Assessment: - Prior to the procedure, a History and Physical was performed, and patient medications and allergies were reviewed. The patient is competent. The risks and benefits of the procedure and the sedation options and risks were discussed with the patient. All questions were answered and informed consent was obtained. Patient identification and proposed procedure were verified by the physician in the pre-procedure area. Mental Status Examination: alert and oriented. Airway Examination: normal oropharyngeal airway and neck mobility. Respiratory Examination: clear to auscultation. CV Examination: normal. Prophylactic Antibiotics: The patient does not require prophylactic antibiotics. Prior Anticoagulants: The patient has taken no anticoagulant or antiplatelet agents. ASA Grade Assessment: II - A patient with mild systemic disease. After reviewing the risks and benefits, the patient was deemed in satisfactory condition to undergo the procedure. The anesthesia plan was to use monitored anesthesia care (MAC). Immediately prior to administration of medications, the patient was re-assessed for adequacy to receive sedatives. The heart rate, respiratory rate, oxygen saturations, blood pressure, adequacy of pulmonary ventilation, and response to care were monitored throughout the procedure. The physical status of the patient was re-assessed after the procedure. After I obtained informed consent, the scope was passed under direct vision. Throughout the procedure, the patient's blood pressure, pulse, and oxygen saturations were monitored continuously. The Colonoscope was introduced through the anus and advanced to the cecum, identified by appendiceal orifice and ileocecal valve. The entire colon was examined. Scope In: 2:17:56 PM Scope Withdrawal Time 0 hours 8 minutes 29 seconds Scope Out: 2:29:21 PM Total Procedure Duration Time 0 hours 11 minutes 25 seconds Findings: The perianal and digital rectal examinations were normal. A 4 mm polyp was found in the cecum. The polyp was sessile. The polyp was removed with a jumbo cold forceps. Resection and retrieval were complete. Biopsies were taken with a cold forceps for histology. There was evidence of a prior end-to-side colo-colonic anastomosis in the recto-sigmoid colon. This was patent and was characterized by healthy appearing mucosa. The anastomosis was traversed. Impression: - One 4 mm polyp in the cecum, removed with a jumbo cold forceps. Resected and retrieved. Biopsied. - Patent end-to-side colo-colonic anastomosis, characterized by healthy appearing mucosa. Recommendation: - Discharge patient to home. - Resume previous diet. - Continue present medications. - Await pathology results. - Repeat colonoscopy in 5 years for surveillance. Procedure Code(s): --- Professional --- 51628, Colonoscopy, flexible; with biopsy, single or multiple CPT copyright 2021 [employer]. All rights reserved. The codes documented in this report are preliminary and upon accounting policy consultant review may be revised to meet current compliance requirements. Dante Villela DO 08/24/2024 2:51:30 PM This report has been signed electronically. Number of Addenda: 0 Note Initiated On: 08/24/2024 2:15 PM 08/24/24 1451 Date Dante Bluntignmary Signature: Date (if indicated) CC: DESULFURIZER HAND-C Maile Chun; Dante Villela DO Date Dictated: 08/24/24 1415 Date Transcribed: Chinese Medicine Practitioner: RF Signed [facility] EGD Reporton 08-24-2024 EGD Report [facility] Medical Records Department [address] [place] [address] EGD Report MR#: [id number] Acct: [id number] Name: NANETTE SKY Rep #: [id number] : 1960 63 From: Dante Villela DO PCP: LUIS Kevin Status:REG [facility] Patient Name: Nanette Sky Procedure Date: 08/24/2024 1:51 PM Date of : 1960 Age: 63 Procedure: Upper GI endoscopy Indications: Epigastric abdominal pain, Functional Dyspepsia, Suspected esophageal reflux Providers: Dante Villela DO Medicines: Monitored Anesthesia Care Patient Profile: This is a 63 year old female. Refer to note in patient chart for documentation of history and physical. Patient has symptoms of acute epigastric abdominal pain and acute dyspepsia. Complications: No immediate complications. Procedure: Pre-Anesthesia Assessment: - Prior to the procedure, a History and Physical was performed, and patient medications and allergies were reviewed. The patient is competent. The risks and benefits of the procedure and the sedation options and risks were discussed with the patient. All questions were answered and informed consent was obtained. Patient identification and proposed procedure were verified by the physician in the pre-procedure area. Mental Status Examination: alert and oriented. Airway Examination: normal oropharyngeal airway and neck mobility. Respiratory Examination: clear to auscultation. CV Examination: normal. Prophylactic Antibiotics: The patient does not require prophylactic antibiotics. Prior Anticoagulants: The patient has taken no anticoagulant or antiplatelet agents. ASA Grade Assessment: II - A patient with mild systemic disease. After reviewing the risks and benefits, the patient was deemed in satisfactory condition to undergo the procedure. The anesthesia plan was to use monitored anesthesia care (MAC). Immediately prior to administration of medications, the patient was re-assessed for adequacy to receive sedatives. The heart rate, respiratory rate, oxygen saturations, blood pressure, adequacy of pulmonary ventilation, and response to care were monitored throughout the procedure. The physical status of the patient was re-assessed after the procedure. After obtaining informed consent, the endoscope was passed under direct vision. Throughout the procedure, the patient's blood pressure, pulse, and oxygen saturations were monitored continuously. The Colonoscope was introduced through the mouth, and advanced to the fourth part of the duodenum. Small bowel enteroscopy was deemed necessary. The upper GI endoscopy was accomplished without difficulty. The patient tolerated the procedure well. Scope In: 2:09:08 PM Scope Out: 2:15:42 PM Total Procedure Duration Time 0 hours 6 minutes 34 seconds Findings: The Z-line was irregular and was found 40 cm from the incisors. Biopsies were taken with a cold forceps for histology. Patchy mildly erythematous mucosa without bleeding was found in the gastric body. Biopsies were taken with a cold forceps for histology. Biopsies were taken with a cold forceps for histology. Verification of patient identification for the specimen was done. Estimated blood loss was minimal. Biopsies were taken with a cold forceps for Helicobacter pylori testing. Verification of patient identification for the specimen was done. Estimated blood loss was minimal. A large polypoid mass with no bleeding was found in the first portion of the duodenum. Biopsies were taken with a cold forceps for histology. Verification of patient identification for the specimen was done. Estimated blood loss was minimal. Impression: - Z-line irregular, 40 cm from the incisors. Biopsied. - Erythematous mucosa in the gastric body. Biopsied. 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 Biopsied. Recommendation: - Discharge patient to home. - Resume previous diet. - Continue present medications. - Await pathology results. Procedure Code(s): --- Professional --- 79603, Small intestinal endoscopy, enteroscopy beyond second portion of duodenum, not including ileum; with biopsy, single or multiple CPT copyright 2021 [employer]. All rights reserved. The codes documented in this report are preliminary and upon accounting policy consultant review may be revised to meet current compliance requirements. Dante Villela DO 08/24/2024 2:42:29 PM This report has been signed electronically. Number of Addenda: 0 Note Initiated On: 08/24/2024 1:51 PM 08/24/24 1442 Date Dante López Signature: Date (if indicated) CC: DESULFURIZER HAND-C Maile Chun; Dante Villela DO Date Dictated: 08/24/24 1351 Date Transcribed: Chinese Medicine Practitioner: ALVERTO Signed [facility] MR/POSTOP.[facility] 08-24-2024 MR/POSTOP.[facility] Medical Records Department [address] [place] [id number] Anesthesia Postop Eval I 08/24/24 1441 MR#: [id number] Acct: [id number] Name: NANETTE SKY LEON Rep #: [id number] : 1960 63 From: Azeem Coffman PCP: LUIS Kevin Status:REG SDC Y Race: C Location: [place] [address] Anesthesia: Postop Eval I Current Vital Signs Temperature: 97.8 F Pulse Rate: 97 Blood Pressure: 96/73 Respiratory Rate: 18 Pulse Ox: 96 Oxygen Delivery Method: Room Air Assessment Airway patent: Yes Spontaneous unlabored respirations: Yes Mental status: Awake and Calm nausea: No Vomiting: No Anesthesia Complication: No Fluid Hydration Crystalloid volume administer (ml): 700 Total IV fluid infused: 700 Progress Note Anesthesia document: Postop Eval 1 completed: Yes 08/24/24 144 Date Azeem Fernandez Signature: Date CC: Signed [facility] MR/[id number] 08-24-2024 MR/POSTOPAN2 [facility] Medical Records Department [address] [place] [address] Anesthesia Postop Eval II 08/24/241516 MR#: [id number] Acct: [id number] Name: NANETTE SKY Rep #: [id number] : 1960 63 From: Jose Eduardo Lovelace MD PCP: Maile Chun, DESULFURIZER HAND-C Status:REG SDC Y Race: C Location: [address] Anesthesia Postop Eval I Sum Postop Eval Completion status Anesthesia document: Postop Eval 1 completed: Yes Anesthesia Postop Eval I Summary Anesthesia Postop Eval I Summary: Anesthesia Postop Eval I: Assessment Summary Airway patent Yes 08/24/24 14:42 [email or web address] Spontaneous unlabored Yes 08/24/24 14:42 [email or web address] respirations Mental status Awake,Calm 08/24/24 14:42 [email or web address] nausea No 08/24/24 14:42 [email or web address] Vomiting No 08/24/24 14:42 [email or web address] Anesthesia Postop Eval I: Fluid Summary Crystalloid volume administer 700 08/24/24 14:42 [email or web address] (ml) Colloids volume administered ( ml) Blood Product volume administered (ml) Total IV fluid infused 700 08/24/24 14:42 [email or web address] Anesthesia Postop Eval I: Summary Notes Anesthesia Complication No 08/24/24 14:42 [email or web address] Anesthesia Complication Comment: Post-operative progress note Anesthesia: Postop Eval II Evaluation Mental status: Awake Pain Level: 0 nausea: No Vomiting: No 08/24/241516 Date Jose Eduardo Lovelace MD Cosigner Signature: Date CC: Signed [facility] Surgery Specimen Level Sathya 08-24-2024 Surgery Specimen Level IV -------- Patient Age/Sex Location Account Attending Physician -------- NANETTE SKY 63/F EN [id number] Dante Villela DO -------- Specimen: [id number] Received: 08/27/24 Status: RAFITA [place] Num: [id number] Spec Type: EGD BIOPSY Subm Dr: Dante Villela, HEADER OPERATION: Colonoscopy, EGD, biopsy PRE-OP DIAGNOSIS: Abdominal pain TISSUE SUBMITTED: A- Duodenal mass biopsy, B- Random duodenum biopsy, C- Gastric antrum biopsy, D- Distal esophagus biopsy, E- Cecal polyp biopsy -------- MICROSCOPIC DIAGNOSIS A. Duodenum, mass, biopsy: Normal villous morphology with Yaz gland hyperplasia, gastric mucin cell metaplasia, and mild acute inflammation, suggestive of peptic injury. Reactive epithelial change, negative for dysplasia. Negative for increased intraepithelial lymphocytes. B. Duodenum, random, biopsy: Normal villous morphology with Yaz gland hyperplasia and focal gastric mucin cell metaplasia. Negative for increased intraepithelial lymphocytes. C. Gastric antrum, biopsy: Oxyntic and antral mucosa with features of reactive gastropathy. Negative for Helicobacter-like organisms (H E). D. Distal esophagus, biopsy: Squamous mucosa with reactive changes and rare eosinophils. Columnar mucosa, negative for goblet cell metaplasia. E. Colon, cecum, polyp, biopsy: Serrated polyp with features of sessile serrated lesion. MICROSCOPIC DESCRIPTION Slides are reviewed. GROSS DESCRIPTION A. Received in fixative is one container labeled with the patient's name and designated Duodenal mass biopsy. The specimen consists of three irregular fragments of light georges soft tissue that in aggregate each measures 0.3 cm. The specimen is totally submitted in one cassette. B. Received in fixative is one container labeled with the patient's name and designated Random duodenum biopsy. The specimen consists of two irregular fragments of light georges soft tissue that in aggregate measure 0.3 and 0.4 cm. The specimen is totally submitted in one cassette. C. Received in fixative is one container labeled with the patient's name and designated Gastric antrum biopsy. The specimen consists of three irregular fragments of light georges -------- Patient Age/Sex Location Account Attending Physician -------- NANETTE SKY / EN [id number] Dante DO Tika -------- soft tissue that in aggregate measure 0.4 to 0.7 cm. The specimen is totally submitted in one cassette. D. Received in fixative is one container labeled with the patient's name and designated Distal esophagus biopsy. The specimen consists of two irregular fragments of light georges soft tissue that in aggregate measure 0.5 and 0.7 cm. The specimen is totally submitted in one cassette. E. Received in fixative is one container labeled with the patient's name and designated Cecal polyp biopsy. The specimen consists of one irregular fragment of light georges soft tissue that measures 0.4 cm. The specimen is totally submitted in one cassette. Namrata 08/27/2024 [facility]:[id number] -------- Patient Age/Sex Location Account Attending Physician -------- NANETTE SKY /F EN [id number] Dante Friend, DO -------- Signed (signature on file) Dr. Nanci Melo MD 09/04/24 1010 -------- [facility] Comment on above: Performed By: #### P SUIV #### [facility] [address] [place] [address]. [place], [place], [id number] Abdomen/Pelvis WITH Contrast on 06-28-2024 Abdomen/Pelvis WITH Contrast [facility] Imaging Services [address] [place], [place] [address] Abdomen/Pelvis WITH Contrast MR#: [id number] Acct: [id number] Name: NANETTE SKY LEON Rep #: [id number] : 1960 F 63 From: Bob platt MD PCP: Maile Chun, DESULFURIZER HAND-C Status: REG CLI Study: Abdomen/Pelvis WITH Contrast Date of Exam: Exam# [id number] Ordering Dr: Bushra May PROCEDURE: ABDOMEN/PELVIS WITH CONTRAST 06/28/2024 REASON FOR EXAM: Right-sided abdominal pain. Gastroesophageal reflux. Prior partial colon resection. TECHNIQUE: Abdomen and pelvis CT with intravenous contrast. Coronal and Sagittal reconstruction series were provided. PATIENT PREPARATION: Per protocol ORAL CONTRAST TYPE: Oral contrast was given. CONTRAST: Isovue-300 VOLUME: 100 mL One or more dose reduction techniques were used (e.g., Automated exposure control, adjustment of the mA and/or kV according to patient size, use of iterative reconstruction technique. RADIATION DOSE SUMMARY: CTDlvol: 11.2 mGy DLP: 1043.99 mGycm COMPARISON: None FINDINGS: Lung bases: Mild dependent atelectasis Liver: Normal size. No mass. Gallbladder: Surgically absent. Spleen: Normal size. Pancreas: Normal size without evidence of mass surrounding inflammation or ductal dilation. Adrenals: Unremarkable Kidneys: Minimal bilateral renal fullness although no evidence of hydronephrosis. Bladder: Unremarkable Reproductive Organs: Prior hysterectomy. Adnexal regions are unremarkable. Bowel: No bowel obstruction. Appendix: Surgically absent. Lymph nodes: Unremarkable. Vasculature: The abdominal aorta and IVC are normal. Peritoneum / Retroperitoneum: Unremarkable Bones: Degenerative changes of the spine. CT/Abdomen/Pelvis WITH Contrast IMPRESSION: Mild fatty infiltration of the liver. Status post cholecystectomy and hysterectomy. Status post appendectomy. Reading Location: [place] [address] CC: LUIS Chun; BULMARO Gonzalez Chinese Medicine Practitioner: Signed [facility] Gastroenterology Visit Repor ton 06-28-2024 Gastroenterology Visit Report [facility] Gastroenterology [address] [place] [address] OFFICE VISIT Date of Service: 06/28/24 MR#: [id number] Acct: [id number] Name: KAUSHALNANETTE PEDROZA LEON Rep #: [id number] : 1960 Provider: BULMARO Gonzalez Age/Sex: 63/F Location[place] [facility] Status: Signed Intake Vital Signs 06/28/24 09:10 Weight: 210 lb 8 oz Intake Visit Reasons: BLOATING NAUSEA FATIGUE Chief Complaint: abdominal pain Allergies penicillin G Allergy (Verified 06/12/24 13:16) Other Medications ???Medication ???Instructions ???Recorded ???Confirmed ???Type levothyroxine 112 mcg tablet 112 mcg PO QDAY 06/12/24 06/28/24 History (Synthroid) polyethylene glycol 3350 17 4 g PO ONCE 06/12/24 06/28/24 Hist ory gram/dose oral powder (Miralax) sodium,potassium,mag sulfates 17.5 See Rx Instructions PO .COMPLEX 06/12/24 06/28/24 Rx gram-3.13 gram-1.6 gram oral soln #354 mL (Suprep Bowel Prep Kit) Have you fallen in the past year?: No HPI HPI Chief Complaint: abdominal pain Details: NANETTE SKY, is a 63 F who presents to the office today for f/u. PMHx diverticulitis with abscess s/p bowel resection. BGI established 4..25 with constipation and heartburn in the evening. Last EGD and colonoscopy in 2019. Pt has a hx of colonic polyps and a duodenal diverticulum. Family hx of colon cancer in her father. OV . Pt here today for new symptoms that started a few days ago. Pt ate leftover fish on Tuesday and then had reflux. This did not go away until she made herself vomit. Then she started to have diffuse abdominal discomfort and bloating. She felt constipated. This is similar to how she felt when she had diverticulitis with an abscess. ROS Const Constitutional: Positive for fatigue and fever(s); No weight change ENT ENT: No difficulty swallowing Gastro GI: Positive for abdominal pain, bloating, change in bowel habits, constipation, diarrhea, heartburn, excessive flatus, nausea/dyspepsia and vomiting; No belching, change in stool character, coffee ground emesis, cramping, difficulty swallowing, feeling full early, incontinent of stools, Vomiting blood/hematemesis, Blood in stool, loose stools, Black,tarry stools, pain with swallowing or other Musc Musculoskeletal: No joint pain Skin Skin: No yellowing of the eye or itchy eyes Neuro Neurology: Positive for other (vertigo) Psych Psychiatric: Positive for anxiety and No depression Endo Endocrine: Positive for fatigue; No weight change Aller/Imm Allergy/Immunologic: No itchy eyes Ranjeet/Lymp Hematologic/Lymphatic: No easy bleeding or easy bruising Exam Const General: cooperative and comfortable Nutritional Appearance: average body habitus and well nourished HENMT Head: normal to inspection Ears: hearing grossly normal bilaterally Nose: external nose normal Throat: posterior oropharynx normal Eyes General: appearance normal, both eyes and all related structures Neck Neck: normal visual inspection Chest Chest palpation inspection: normal inspection of the chest Resp Effort Inspection: normal respiratory effort Auscultation: Bilateral: Clear to Auscultation Cardio Palpation: normal PMI Rate: regular rate Rhythm: regular rhythm GI Inspection: normal to inspection Auscultation: normal bowel sounds Percussion: normal to percussion Palpation: soft and no hepatosplenomegaly Skin General: no rashes or lesions noted Neuro General: patient alert Extrem General: normal to inspection Psych Affect: normal affect Assessment and Plan Assessment and Plan (1) Abdominal pain: Status: Acute Qualifiers: Abdominal location: generalized Qualified Code(s): R10.84 - Generalized abdominal pain Plan: This is a 63 yo female pt here today for evaluation of abdominal pain x5 days. Pt ate a piece of leftover fish and then had severe reflux, vomiting, abdominal bloating and discomfort. She continues to have the discomfort and some constipation. This feels similar to when she had diverticulitis in the past. I will order a stat CT abd/pelvis to rule out an acute episodes of diverticulitis. Pt is already scheduled for an upcoming EGD and colonoscopy. Will consider treatments pending CT results. -CT abd/pelvis -Pt scheduled for EGD and colonoscopy -Consider treatment pending CT results -f/u after testing (2) Hx of diverticulitis of colon: Status: Acute Orders: Orders Abdomen/Pelvis WITH Contrast Today R10.9 - Unspecified abdominal pain, Z87.19 - Personal history of other diseases of the digestive system Coding Level of Care Code Off vis,est,level 3 Diagnoses Generalized abdominal pain R10.84 Abdominal location: generalized Hx of diverticulitis of colon Z87.19 Clinical Quality Measures Falls Risk Screening/Assistive (more content not included)... [facility] Breast imaging reportOrdered By: Sandra Gifford on 06-19-2024 Study report [facility] Imaging Services [address] [place], [place] [address] SCRN MAMM (CAD)W/JELENA OLIVARES MR#: [id number] Acct: [id number] Name: NANETTE SKY Rep #: [id number] : 1960 F 63 From: Caroline Gifford MD PCP: LUIS Kevin Status: REG C AMERICO Study:SCRN MAMM (CAD)W/JELENA BILAT Date of Exa m: 06/15/24 Exam# [id number] Ordering Dr: Nadia Chun EXAM: SCRN MAMM (CAD)W/JELENA BILAT 06/15/2024 CLINICAL HISTORY: F, Age 63 y/o , BREAST CANCER SCREENING TECHNIQUE: Bilateral screening digital breast tomosynthesis with 2D and 3D images. Computeraided detection. COMPARISON: Prior exam(s) dated 01/25/2024, 01/21/2023.. FINDINGS: TISSUE DENSITY: The breast tissue is composed of scattered area of fibroglandular density. Bilateral Breast Mammographic Findings: No significant masses, calcifications or other abnormalities are identified. BI/SCRN MAMM (CAD)W/JELENA BILAT IMPRESSION: Right Breast: BIRADS 1 NEGATIVE. Left Breast: BIRADS 1 NEGATIVE. OVERALL FINAL ASSESSMENT: BIRADS 1 NEGATIVE. RECOMMENDATION: Routine annual follow-up in 1 Year A letter with findings and recommendations will be mailed to the patient. Reading Location: [facility] CC: LUIS Chun ~ Chinese Medicine Practitioner: [facility]igned [facility] CRP, High Sensitivity [id number] on 06-15-2024 CRP, HIGH SENS 2.98 mg/L Normal 0.00-3.00 [facility] Comment on above: Result Comment: Rela tive Risk for Future Cardiovascular Event Low <1.00 Average 1.00 - 3.00 High >3.00 Performed at: - [facility] [address] [id number] [employer] Architect: Tanmay Beatty PhD, Phone: [phone] Performed By: #### L 294.1163, G7583.4807, X702.1035 #### [facility] [place], [address] SCRN MAMM (CAD)W/JELENA BILATo n 06-15-2024 SCRN MAMM (CAD)W/JELENA BILAT [facility] Imaging Services [address] [place] [address] SCRN MAMM (CAD)W/JELENA BILAT MR#: [id number] Acct: [id number] Name: NANETTE SKY Rep #: [id number] : 1960 F 63 From: Sandra Gifford MD PCP: LUIS Kevin Status: REG CLI Study: SCRN MAMM (CAD)W/JELENA BILAT Date of Exam: 07/06 Exam# [id number] Ordering Dr: Maile Chun EXAM: SCRN MAMM (CAD)W/JELENA BILAT 06/15/2024 CLINICAL HISTORY: F, Age 63 y/o , BREAST CANCER SCREENING TECHNIQUE: Bilateral screening digital breast tomosynthesis with 2D and 3D images. Computer aided detection. COMPARISON: Prior exam(s) dated 01/25/2024, 01/21/2023.. FINDINGS: TISSUE DENSITY: The breast tissue is composed of scattered area of fibroglandular density. Bilateral Breast Mammographic Findings: No significant masses, calcifications or other abnormalities are identified. BI/SCRN MAMM (CAD)W/JELENA BILAT IMPRESSION: Right Breast: BIRADS 1 NEGATIVE. Left Breast: BIRADS 1 NEGATIVE. OVERALL FINAL ASSESSMENT: BIRADS 1 NEGATIVE. RECOMMENDATION: Routine annual follow-up in 1 Year A letter with findings and recommendations will be mailed to the patient. Reading Location: [facility] CC: DESULFURIZER HANDJose Manuel Chun Chinese Medicine Practitioner: Signed [facility] Absolute lymphocyte countOrd ered By: Maile Chun on 06-13-2024 Lymphocytes Auto (Unsp spec) [#/Vol] 1.45 10*3/uL 0.83-4.51 [facility] Absolute neutrophil countOrd ered By: Maile Chun on 06-13-2024 Neutrophils (Bld) [#/Vol] 3.7 10*3/uL 2.0-7.7 [facility] Anion gap in Serum or Plasma Ordered By: Maile Chun on 06-13-2024 Anion gap [Moles/Vol] 11 mmol/L 5-15 [facility] Automated lymphocyte count a s percentage of total leukocytesOrdered By: Maile Chun on 06-13-2024 Lymphocytes/100 WBC Auto (Unsp spec) 25.0 % 19-41 [facility] BUN/creatinine ratioOrdered By: Maile Chun on 06-13-2024 Urea nitrogen/Creatinine [Mass ratio] 20.3 mg/mg High 10-20 [facility] Basophil percentageOrdered B y: Maile Chun on 06-13-2024 Basophils/100 WBC (Bld) 0.9 % 0-1 [facility] Bilirubin, totalOrdered By: Maile Chun on 06-13-2024 Bilirubin [Mass/Vol] 0.48 mg/dL 0.00-1.[address] [facility] C-reactive protein measureme nt by high sensitivity methodOrdered By: Maile Chun on 06-13-2024 C-Reactive Protein High Sensitivity 2.98 mg/L 0.00-3.00 [facility] Comment on above: Relative Risk for Fu ture Cardiovascular Event Low <1.00 Average 1.00 - 3.00 High >3.00Performed at: [employer] [id number] [place], [place] [id number] Director: Tanmay Beatty PhD, Phone: [phone] C-reactive protein measurement by high sensitivity method 2.98 mg/L 0.00-3.00 [facility] Comment on above: Relative Risk for Fu ture Cardiovascular Event Low <1.00 Average 1.00 - 3.00 High >3.00Performed at: [employer] [id number] [place] [id number] Director: Tanmay Beatty PhD, Phone: [phone] CBC W/Diff, Automatedon Absolute Lymph 1.45 X10 3/uL Normal 0.83-4.51 [facility] Comment on above: Performed By: #### L 100.0100, L3100.7870, L500.4050 #### [facility] [address] [place], [address] Absolute Neut 3.7 X10 3/uL Normal 2.0-7.7 [facility] Comment on above: Performed By: #### L 100.0100, L3100.7870, L500.4050 #### [facility] [address] [place], [address] Basophils/100 WBC (Bld) 0.9 % Normal 0-1 [facility] Comment on above: Performed By: #### L 100.0100, L3100.7870, L500.4050 #### [facility] [address] [place], [address] Eosinophils/100 WBC (Bld) 2.9 % Normal 0-5 [facility] Comment on above: Performed By: #### L 100.0100, L3100.7870, L500.4050 #### [facility] [address] [place], [address] Erythrocyte distribution width (RBC) [Ratio] 12.5 % Normal 11.6-14.6 [facility] Comment on above: Performed By: #### L 100.0100, L3100.7870, L500.4050 #### [facility] [address] [place], [address] Hematocrit (Bld) [Volume fraction] 44.4 % Normal 37-47 [facility] Comment on above: Performed By: #### L 100.0100, L3100.7870, L500.4050 #### [facility] [address] [place], [address] Hemoglobin (Bld) [Mass/Vol] 14.6 g/dL Normal 12.0-15.0 [facility] Comment on above: Performed By: #### L 100.0100, L3100.7870, L500.4050 #### [facility] [address] [place], [address] IG% 0.300 Normal 0.0-0.9 [facility] Comment on above: Result Comment: IG% - Immature Granulocytes (promyelocytes, myelocytes and metamyelocytes) > 1% indicates that a LEFT SHIFT is Present. Performed By: #### L 100.0100, L3100.7870, L500.4050 #### [facility] [address] [place], [address] Lymphocytes/100 WBC (Bld) 25.0 % Normal 19-41 [facility] Comment on above: Performed By: #### L 100.0100, L3100.7870, L500.4050 #### [facility] [address] [place], [address] MCH (RBC) [Entitic mass] 31.3 pg Normal 27.0-32.0 [facility] Comment on above: Performed By: #### L 100.0100, L3100.7870, L500.4050 #### [facility] [address] [place], [address] MCHC (RBC) [Mass/Vol] 32.9 g/dL Normal 32-36 [facility] Comment on above: Performed By: #### L 100.0100, L3100.7870, L500.4050 #### [facility] [address] [place], [address] MCV (RBC) [Entitic vol] 95.1 fL Normal 81-99 [facility] Comment on above: Performed By: #### L 100.0100, L3100.7870, L500.4050 #### [facility] [address] [place], [address] Monocytes/100 WBC (Bld) 6.6 % Normal 0-10 [facility] Comment on above: Performed By: #### L 100.0100, L3100.7870, L500.4050 #### [facility] [address] [place], [address] Neutrophils/100 WBC (Bld) 64.3 % Normal 47-70 [facility] Comment on above: Performed By: #### L 100.0100, L3100.7870, L500.4050 #### [facility] [address] [place], [address] Nucleated RBC (Bld) [#/Vol] 0 10*3/uL Normal 0-5 [facility] Comment on above: Performed By: #### L 100.0100, L3100.7870, L500.4050 #### [facility] [address] [place], [address] Platelet mean volume (Bld) [Entitic vol] 8.7 fL Normal 6.2-12.0 [facility] Comment on above: Performed By: #### L 100.0100, L3100.7870, L500.4050 #### [facility] [address] [place], [address] Platelets (Bld) [#/Vol] 271 10*3/uL Normal 150-450 [facility] Comment on above: Performed By: #### L 100.0100, L3100.7870, L500.4050 #### [facility] [address] [place], [address] RBC (Bld) [#/Vol] 4.67 10*6/uL Normal 4.2-5.4 [facility] Comment on above: Performed By: #### L 100.0100, L3100.7870, L500.4050 #### [facility] [address] [place], [address] RDW SD 43.5 fl Normal 35.1-43.9 [facility] Comment on above: Performed By: #### L 100.0100, L3100.7870, L500.4050 #### [facility] [address] [place], [place], [address] WBC (Bld) [#/Vol] 5.8 10*3/uL Normal 4.4-11.0 [facility] Comment on above: Performed By: #### L 100.0100, L3100.7870, L500.4050 #### [facility] [address] [place], [place], [address] Carbon dioxide, total [Moles /volume] in Central venous bloodOrdered By: Maile Chun on 06-13-2024 CO2 [Moles/Vol] 28.1 mmol/L 21.0-32.0 [facility] Cerv Spine 4 or 5 Viewson Cerv Spine 4 or 5 Views [facility] Imaging Services [address] [place], [place] [address] Cerv Spine 4 or 5 Views MR#: [id number] Acct: [id number] Name: NANETTE SKY LEON Rep #: [id number] : 1960 F 63 From: Bob platt MD PCP: Status: DEP AMB Study: Cerv Spine 4 or 5 Views Date of Exam: 06/13/24 Exam# [id number] Ordering Dr: Maile Chun PROCEDURE: CERV SPINE 4 OR 5 VIEWS 06/13/2024 REASON FOR EXAM: CHRONIC PAIN, UPPER NECK AREA TECHNIQUE: 5 views of the cervical spine. COMPARISON: None FINDINGS: Moderate to marked degree of disc space narrowing and spondylosis at the C5-C6 and C6-C7 levels. Alignment: Loss of the normal cervical lordosis in keeping with muscle spasm. soft tissues: Unremarkable Other: RAD/Cerv Spine 4 or 5 Views IMPRESSION: MODERATE CERVICAL DEGENERATIVE CHANGES. Reading Location: [place] [address] CC: DESULFURIZER HANDJose Manuel Chun Chinese Medicine Practitioner: Signed [facility] Chloride assayOrdered By: Serena Chun on 06-13-2024 Chloride [Moles/Vol] 104 mmol/L 98-[address] [facility] Comprehensive Metabolic Prof ilon 06-13-2024 Albumin [Mass/Vol] 4.4 g/dL Normal 3.4-4.8 [facility] Comment on above: Performed By: #### L 100.0100, L3100.7870, L500.4050 #### [facility] [address] [place], [address] Albumin/Globulin [Mass ratio] 1.6 {ratio} Normal 0.9-2.4 [facility] Comment on above: Performed By: #### L 100.0100, L3100.7870, L500.4050 #### [facility] [address] [place], [address] ALK PHOS 73 U/L Normal 35-104 [facility] Comment on above: Performed By: #### L 100.0100, L3100.7870, L500.4050 #### [facility] [address] [place], [address] ALT [Catalytic activity/Vol] 21 U/L Normal <=34 [facility] Comment on above: Performed By: #### L 100.0100, L3100.7870, L500.4050 #### [facility] [address] [place], [address] AST [Catalytic activity/Vol] 22 U/L Normal <=31 [facility] Comment on above: Performed By: #### L 100.0100, L3100.7870, L500.4050 #### [facility] [address] [place], [address] Bilirubin [Mass/Vol] 0.48 mg/dL Normal 0.00-1.[address] [facility] Comment on above: Performed By: #### L 100.0100, L3100.7870, L500.4050 #### [facility] [address] [place], [address] BUN/CRE 20.3 RATIO High 10-20 [facility] Comment on above: Performed By: #### L 100.0100, L3100.7870, L500.4050 #### [facility] [address] [place], [address] Calcium [Mass/Vol] 9.2 mg/dL Normal 7.6-11.0 [facility] Comment on above: Performed By: #### L 100.0100, L3100.7870, L500.4050 #### [facility] [address] [place], [address] Chloride [Moles/Vol] 104 mmol/L Normal 98-[address] [facility] Comment on above: Performed By: #### L 100.0100, L3100.7870, L500.4050 #### [facility] [address] [place], [address] CO2 [Moles/Vol] 28.1 mmol/L Normal 21.0-32.0 [facility] Comment on above: Performed By: #### L 100.0100, L3100.7870, L500.4050 #### [facility] [address] [place], [address] Creatinine [Mass/Vol] 0.80 mg/dL Normal 0.70-1.20 [facility] Comment on above: Performed By: #### L 100.0100, L3100.7870, L500.4050 #### [facility] [address] [place], [address] GAP 11 Normal 5-15 [facility] Comment on above: Performed By: #### L 100.0100, L3100.7870, L500.4050 #### [facility] [address] [place], [address] GFR/1.73 sq M.predicted among non-blacks MDRD (S/P/Bld) [Vol rate/Area] 81 mL/min/{1.73_m2} Normal >60 [facility] Comment on above: Result Comment: mL/m in/1.73m2 CKD-EPI Creatinine Equation (2020) Performed By: #### L 100.0100, L3100.7870, L500.4050 #### [facility] [address] [place], [address] Globulin (S) [Mass/Vol] 2.8 g/dL Normal 2.2-4.2 [facility] Comment on above: Performed By: #### L 100.0100, L3100.7870, L500.4050 #### [facility] [address] [place], [address] Glucose [Mass/Vol] 95 mg/dL Normal 70-99 [facility] Comment on above: Performed By: #### L 100.0100, L3100.7870, L500.4050 #### [facility] [address] [place], [address] Potassium [Moles/Vol] 4.4 mmol/L Normal 3.3-5.1 [facility] Comment on above: Performed By: #### L 100.0100, L3100.7870, L500.4050 #### [facility] [address] [place], [address] Sodium [Moles/Vol] 142 mmol/L Normal 133-145 [facility] Comment on above: Performed By: #### L 100.0100, L3100.7870, L500.4050 #### [facility] [address] [place], [address] T PROT 7.2 g/dL Normal 5.9-8.4 [facility] Comment on above: Performed By: #### L 100.0100, L3100.7870, L500.4050 #### [facility] [address] [place], [address] Urea nitrogen [Mass/Vol] 16 mg/dL Normal 4-19 [facility] Comment on above: Performed By: #### L 100.0100, L3100.7870, L500.4050 #### [facility] [address] [place], [address] Eosinophil percentageOrdered By: Maile Chun on 06-13-2024 Eosinophils/100 WBC (Bld) 2.9 % 0-5 [facility] Erythrocyte distribution wid th (RBC) [Ratio]Ordered By: Maile Chun on 06-13-2024 Erythrocyte distribution width (RBC) [Entitic vol] 43.5 fL 35.1-43.9 [facility] Erythrocyte distribution wid th ratioOrdered By: Maile Chun on 06-13-2024 Erythrocyte distribution width (RBC) [Ratio] 12.5 % 11.6-14.6 [facility] Erythrocyte distribution wid th standard deviationOrdered By: Maile Chun on 06-13-2024 Erythrocyte distribution width (RBC) [Ratio] 43.5 fl 35.1-43.9 [facility] GFR/1.73 sq M.predicted oleksandr g non-blacks MDRD (S/P/Bld) [Vol rate/Area]Ordered By: Maile Chun on 06-13-2024 Estimated GFR (MDRD) Non-Af Amer 81 >60 [facility] Comment on above: mL/min/1.73m2 CKD-EP I Creatinine Equation (2020) Glomerular filtration rate ( GFR) estimation/1.73 sq m using serum, plasma, or whole bOrdered By: Maile Chun on 06-13-2024 GFR/1.73 sq M.predicted among non-blacks MDRD (S/P/Bld) [Vol rate/Area] 81 mL/min/{1.73_m2} >60 [facility] Comment on above: mL/min/1.73m2 CKD-EP I Creatinine Equation (2020) Hematocrit Auto (Bld) [Volum e fraction]Ordered By: Maile Chun on 06-13-2024 Hematocrit (Bld) [Volume fraction] 44.4 % 37-47 [facility] Hemoglobin measurementOrdere d By: Maile Chun on 06-13-2024 Hemoglobin (Bld) [Mass/Vol] 14.6 g/dL 12.0-15.0 [facility] Immature granulocytes/100 WB C Auto (Bld)Ordered By: Maile Chun on 06-13-2024 Immature granulocytes/100 WBC (Bld) 0.300 % 0.0-0.9 [facility] Comment on above: IG% - Immature Granu locytes (promyelocytes, myelocytes and metamyelocytes) > 1% indicates that a LEFT SHIFT is Present. Laboratory - Chemistry and C hemistry - challengeOrdered By: Maile Chun on 06-13-2024 AST [Catalytic activity/Vol] 22 U/L <32 [facility] Lymphocytes Auto (Unsp spec) [#/Vol]Ordered By: Maile Chun on 06-13-2024 Lymphocytes (Bld) [#/Vol] 1.45 10*3/uL 0.83-4.51 [facility] Lymphocytes/100 WBC Auto (Un sp spec)Ordered By: Maile Chun on 06-13-2024 Lymphocytes/100 WBC (Bld) 25.0 % 19-41 [facility] MCV (mean corpuscular volume ) determinationOrdered By: Maile Chun on 06-13-2024 MCV (RBC) [Entitic vol] 95.1 fL 81-99 [facility] Mean corpuscular hemoglobin (MCH) determinationOrdered By: Maile Chun on 06-13-2024 MCH (RBC) [Entitic mass] 31.3 pg 27.0-32.0 [facility] Mean corpuscular hemoglobin concentration (MCHC) determinationOrdered By: Maile Chun on 06-13-2024 MCHC (RBC) [Mass/Vol] 32.9 g/dL 32-36 [facility] Mean platelet volume determi nationOrdered By: Maile Chun on 06-13-2024 Platelet mean volume (Bld) [Entitic vol] 8.7 fL 6.2-12.0 [facility] Monocyte percentageOrdered B y: Maile Chun on 06-13-2024 Monocytes/100 WBC (Bld) 6.6 % 0-10 [facility] Neutrophil percentageOrdered By: Maile Chun on 06-13-2024 Neutrophils/100 WBC (Bld) 64.3 % 47-70 [facility] Nucleated red blood cell per centageOrdered By: Maile Chun on 06-13-2024 Nucleated RBC/100 WBC (Bld) [Ratio] 0 % 0-5 [facility] Platelet countOrdered By: Serena Chun on 06-13-2024 Platelets (Bld) [#/Vol] 271 10*3/uL 150-450 [facility] Potassium (Unsp spec) [Mass/ Vol]Ordered By: Maile Chun on 06-13-2024 Potassium [Moles/Vol] 4.4 mmol/L 3.3-5.1 [facility] Potassium measurement (mass/ volume)Ordered By: Maile Chun on 06-13-2024 Potassium (Unsp spec) [Mass/Vol] 4.4 mmol/L 3.3-5.1 [facility] RBC Auto (Bld) [#/Vol]Ordere d By: Maile Chun on 06-13-2024 RBC (Bld) [#/Vol] 4.67 10*6/uL 4.2-5.4 [facility] Serum creatinine measurement (mass/volume)Ordered By: Maile Chun on 06-13-2024 Creatinine [Mass/Vol] 0.80 mg/dL 0.70-1.20 [facility] Serum globulin measurementOr dered By: Maile Chun on 06-13-2024 Globulin (S) [Mass/Vol] 2.8 g/dL 2.2-4.2 [facility] Serum glucose measurement (m ass/volume)Ordered By: Maile Chun on 06-13-2024 Glucose [Mass/Vol] 95 mg/dL 70-99 [facility] Serum or plasma alanine hatfield otransferase (ALT) measurementOrdered By: Maile Chun on 06-13-2024 ALT [Catalytic activity/Vol] 21 U/L <35 [facility] Serum or plasma albumin daniele urement (mass/volume)Ordered By: Maile hCun on 06-13-2024 Albumin [Mass/Vol] 4.4 g/dL 3.4-4.8 [facility] Serum or plasma albumin/glob ulin mass ratioOrdered By: Maile Chun on 06-13-2024 Albumin/Globulin [Mass ratio] 1.6 {ratio} 0.9-2.4 [facility] Serum or plasma alkaline marianela sphatase measurementOrdered By: Maile Chun on 06-13-2024 ALP [Catalytic activity/Vol] 73 U/L 35-104 [facility] Serum or plasma calcium daniele urement (mass/volume)Ordered By: Maile Chun on 06-13-2024 Calcium [Mass/Vol] 9.2 mg/dL 7.6-11.0 [facility] Serum or plasma urea nitroge n measurement (mass/volume)Ordered By: Maile Chun on 06-13-2024 Urea nitrogen [Mass/Vol] 16 mg/dL 4-19 [facility] Sodium levelOrdered By: Lynette Chun on 06-13-2024 Sodium [Moles/Vol] 142 mmol/L 133-145 [facility] Total proteinOrdered By: Navjot Chun on 06-13-2024 Protein [Mass/Vol] 7.2 g/dL 5.9-8.4 [facility] White blood cell (WBC) count Ordered By: Maile Chun on 06-13-2024 WBC (Bld) [#/Vol] 5.8 10*3/uL 4.4-11.0 [facility] CNOVon 06-12-2024 CNOV Office Visit (ENWSTR ) NANETTE SKY ([id number]) 1960 F Date Time Provider Department 06/12/24 8:00 AM LAWRENCE FINCH ENANGELA During your visit today, we recorded the following information about you: Temperature Pulse Blood pressure Weight 97 degrees 93/minute 116/78 96.2 kg Lawrence Finch MD 06/12/2024 6:08 PM Signed [facility] Initial Clinic Visit Note Subjective: Nanette Sky is a 63 year old female who has a 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 She moved from [place], [place] in Jan 2024 Hyperthyroidism: - Diagnosed in 2016; underwent radioactive ablation 2-3 years later. - Currently on Synthroid; last thyroid labs in September were normal. 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 Current treatment: 112 mcg of synthroid daily, has been on this dose for long time Takes on an empty stomach, 30-60 minutes before eating and 2-4 hours separate from vitamin or calcium intake. She also reports of low pituitary function for which she was started on cabergoline 0.25 mg weekly and is currently on it for the last 2-3 years. She could not specify any other details on this medication. On chart review, Diagnosed with hyperthyroidism ~2016 in the context of physical exam. Work up showed toxic MNG. Was started on methimazole, then had CASTANEDA ablation 02/2020. TSH got very high but was hesitant about starting thyroid hormone replacement and did not start right away. Did eventually start it earlier this year, but says initial dose was too high (125 mcg) and was reduced to 112 mg daily. She had hysterectomy at age 37 but ovaries were kept, not sure when menopause was for her. Was recently prescribed Progesterone by [employer] Information Director for sleep but it caused breast tenderness after a few doses so she stopped. She was also noted to have mildly elevated prolactin level on panel done by [employer]. This was repeated fasting for confirmation and was persistently elevated. 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 She has no history of amiodarone or lithium use or recent iodinated contrast exposure. She is not taking biotin but is taking a B-complex General symptoms: Tremors + - Denies weight changes, increased appetite, or palpitations. - Energy levels are stable; plans to resume walking now that winter is over. - No changes in bowel habits; uses Miralax PRN for regularity. Denies diarrhea. - Recent stressors include moving and job changes. Positive family history of thyroid disease - multiple sisters. REVIEW OF SYSTEMS: GENERAL:No weight loss, malaise or fevers HEENT:Negative for frequent or significant headaches, No changes in hearing or vision, no nose bleeds or other nasal problems NECK:Negative for lumps, goiter, pain and significant neck swelling RESPIRATORY: Negative for cough, hemoptysis, wheezing or shortness of breath CARDIOVASCULAR: Negative for chest pain, leg swelling or palpitations GASTROINTESTINAL: No nausea, vomiting, or persistent diarrhea GENITOURINARY: no dysuria, Polyuria, no changes in urinary frequency MUSCULOSKELETAL:no muscle aches, arthralgia NEUROLOGIC: no numbness, tingling, no Paresthesias, no headaches SKIN:Negative for lesions, rash, and itching PSYCHIATRIC: Negative for sleep disturbance, mood disorder and recent psychosocial stressors. HEMATOLOGIC/LYMPHATIC/IMMUNO LOGIC:Negative for prolonged bleeding, bruising easily ENDOCRINE: Negative for cold or heat intolerance or goiter ALLERGIES: ALLERGIES Allergen Reactions Penicillins Unknown Unknown MEDICATIONS: Current Outpatient Medications on File Prior to Visit Medication Sig cabergoline (DOSTINEX) 0.5 mg tablet Take 0.25 mg by mouth one time a week. cetirizine (ZYRTEC) 10 mg tablet Take 1 tablet by mouth once daily. levothyroxine (SYNTHROID) 112 mcg tablet Take 112 mcg by mouth daily before breakfast. omega-3/dha/epa/dpa/fish oil (OMEGA-3 2100 ORAL) Take by mouth. Ascorbic Acid (VITAMIN C) 1,000 mg tablet Take 1,000 mg by mouth once daily. calcium carbonate/vitamin D3 (CALTRATE 600 + D ORAL) Take by mouth. VITAMIN D2-VITAMIN K1 ORAL Take by mouth. ascorbic acid/collagen hydr (COLLAGEN SKIN RENEWAL ORAL) Take by mouth two times a day. acyclovir (ZOVIRAX) 5 % ointment Apply 1 application to affected area five times daily. (Patient not taking: Reported on 06/12/2024) No current facility-administered medications on file prior to visit. PAST MEDICAL HISTORY: PAST MEDICAL HISTORY Diagnosis Date Diverticulitis s/p colon resection 2008 12 in removed Herpes Migraine headache came back end of apr Nontoxic uninodular goiter s/P FNA in 2009, benign PAST SURGICAL HISTORY: PAST SURGICAL HISTORY Procedure Laterali (more content not included)... Normal [facility] Gastroenterology Visit Repor ton 06-12-2024 Gastroenterology Visit Report [facility] [address] [place] [address] OFFICE VISIT Date of Service: 06/12/24 MR#: [id number] Acct: [id number] Name: NANETTE SKY Rep #: [id number] : 1960 Provider: BULMARO Gonzalez Age/Sex: 63/F Location: [facility] Status: Signed Intake Intake Visit Reasons: ESTABLISH CARE Chief Complaint: colonoscopy Allergies penicillin G Allergy (Verified 06/12/24 13:16) Other Medications ???Medication ???Instructions ???Recorded ???Confirmed ???Type levothyroxine 112 mcg tablet 112 mcg PO QDAY 06/12/24 06/12/24 History (Synthroid) polyethylene glycol 3350 17 4 g PO ONCE 06/12/24 06/12/24 Hist ory gram/dose oral powder (Miralax) sodium,potassium,mag sulfates 17.5 See Rx Instructions PO .COMPLEX 06/12/24 06/12/24 Rx gram-3.13 gram-1.6 gram oral soln #354 mL (Suprep Bowel Prep Kit) Patient : No Have you fallen in the past year?: No Nurse's Note: OV 06.12.24 Pt here to establish care with [facility]. Pt reports prior hx of colonoscopy in 2021. Reports gallbladder removed in 2018 HPI HPI Chief Complaint: colonoscopy Details: NANETTE SKY, is a 63 F who presents to the office today for establishment with [facility]. Pt has a long hx of GI symptoms starting in 2008 when she underwent emergency surgery for diverticulitis with an abscess. She notes she had about 12 inches of bowel removed. In 2019, she underwent cholecystectomy. Pt has always had issues with constipation for as long as she can remember. She has a bm after each meal daily. She will take miralax on occasion if needed. She has been having some right sided heartburn in the evening. Her last colonoscopy was in 2019. She follows a 5 year schedule due to family hx of colon cancer in her father and hx of colonic polyps. 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 She feels worried about this finding. ROS Const Constitutional: Positive for fatigue; No fever(s) or weight change ENT ENT: No difficulty swallowing Gastro GI: Positive for constipation and heartburn; No abdominal pain, belching, bloating, change in bowel habits, change in stool character, coffee ground emesis, cramping, diarrhea, difficulty swallowing, feeling full early, excessive flatus, incontinent of stools, Vomiting blood/hematemesis, Blood in stool, loose stools, Black,tarry stools, nausea/dyspepsia, pain with swallowing, vomiting or other Musc Musculoskeletal: Positive for back pain and stiffness; No joint pain Skin Skin: No yellowing of the eye or itchy eyes Neuro Neurology: Positive for dizziness Psych Psychiatric: Positive for anxiety and No depression Endo Endocrine: Positive for fatigue; No weight change Aller/Imm Allergy/Immunologic: No itchy eyes Ranjeet/Lymp Hematologic/Lymphatic: No easy bleeding or easy bruising Exam Const General: cooperative and comfortable Nutritional Appearance: average body habitus and well nourished HENMT Head: normal to inspection Ears: hearing grossly normal bilaterally Nose: external nose normal Face and sinus: normal facial exam Mouth: oral mucosae normal Throat: posterior oropharynx normal Eyes General: appearance normal, both eyes and all related structures Neck Neck: normal visual inspection Chest Chest palpation inspection: normal inspection of the chest Resp Effort Inspection: normal respiratory effort Cardio Palpation: normal PMI Rate: regular rate Rhythm: regular rhythm GI Inspection: normal to inspection Auscultation: normal bowel sounds Percussion: normal to percussion Palpation: no hepatosplenomegaly Skin General: no rashes or lesions noted Neuro General: patient alert Extrem General: normal to inspection Psych Affect: normal affect Assessment and Plan Assessment and Plan (1) Does not have primary care provider: Status: Acute Plan: This is a 63 yo female pt here today for establishment with [facility] to be scheduled for colonoscopy and EGD. Pt recently moved to [place] from [place] and wanted to become established with a new GI here. Pt has a PMHx of diverticulitis s/p partal colectomy in 2008. Pt has struggled with constipation for many years but is controlled with miralax PRN. Pt has been on 5 year schedule for colonoscopies due to family hx. Pt has had some issues with heartburn in the evening recently. 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 She will undergo EGD and colonoscopy. Pt does not have a PCP since moving to [place]. Referral sent to internal medicine. -Colonoscopy and EGD -SuPrep sent -Continue miralax as needed -Referred to internal medicine -f/u after procedure (2) Screening for colon cancer: Status: Acute (3) History of partial colectomy: Status: Acute Orders: Referrals Internal Medicine Z75.8 - Other p (more content not included)... Normal [facility] No Panel Informationon 06-12 Interpretation and review of laboratory results Normal [facility] PROLACTINon 06-12-2024 Prolactin [Mass/Vol] 14.5 ng/mL 4.4 - 3 3.8 ng/mL [facility] Comment on above: Prolactin test is pe rformed using the [employer] Electrochemiluminescence Immunoassay method. Results obtained with different methods or kits cannot be used interchangeably. Prolactin SerP-ncon 06-12 Prolactin [Mass/Vol] 14.5 ng/mL Normal 4.4-33.8 [facility] Comment on above: Order Comment: Speci men Type: BLOOD SPECIMEN Ordering Facility: [facility] Address: [address] [place] [address] Result Comment: Prol actin test is performed using the [employer] Electrochemiluminescence Immunoassay method. Results obtained with different methods or kits cannot be used interchangeably. Performed By: #### 2 842-3, 3024-7, 3 #### [facility] CLIA [id number] [address] [place] [address] [place] T4 FREE/FREE THYROXINEon Free T4 [Mass/Vol] 1.5 ng/dL 0.9 - 1.7 ng/dL [facility] T4 Free SerPl-ncon 025 Free T4 [Mass/Vol] 1.5 ng/dL Normal 0.9-1.7 [facility] Comment on above: Order Comment: Speci men Type: BLOOD SPECIMEN Ordering Facility: [facility] Address: [address] [place] [address] Performed By: #### 2 842-3, 3024-7, 3 #### [facility] CLIA [id number] [address] [place] [address] [place] THYROID STIMULATING HORMONEo n 06-12-2024 TSH Qn 1.5 m[IU]/L [facility] TSH SerPl-aCncon 06-12-2024 TSH Qn 1.500 m[IU]/L Normal 0.270-4.[address] [facility] Comment on above: Order Comment: Speci men Type: BLOOD SPECIMEN Ordering Facility: [facility] Address: [address] [place] [address] Performed By: #### 2 842-3, 3024-7, 3016-3 #### [facility] CLIA [id number] [address] [place] [address] [place] [address] [place] Vital Signs Date Time Vital Sign Value Performing Clinician Mati marsh 08-24-2024 14:55-0400 Body temperature 98.3 [degF] Maile Chun [employer] Work Phone: [facility] 08-24-2024 14:55-0400 Diastolic blood pressure 74 mm[Hg] Maile Chun [employer] Work Phone: [facility] 08-24-2024 14:55-0400 Heart rate 94 /min Maile Chun [employer] Work Phone: [facility] 08-24-2024 14:55-0400 Respiratory rate 16 /min Maile Chun [employer] Work Phone: [facility] 08-24-2024 14:55-0400 SaO2% (BldA) [Mass fraction] 97 % Maile Chun [employer] Work Phone: [facility] 08-24-2024 14:55-0400 Systolic blood pressure 114 mm[Hg] Maile Chun [employer] Work Phone: [facility] 08-24-2024 12:15-0400 Body height 182.88 cm Maile Chun [employer] Work Phone: [facility] 08-24-2024 12:15-0400 Body mass index (BMI) [Ratio] 27.8 kg/m2 Maile Chun [employer] Work Phone: [facility] 08-24-2024 12:15-0400 Body weight 93 kg Maile Chun [employer] Work Phone: [facility] 06-28-2024 09:10-0400 Body weight 95.48 kg Maile Chun [employer] Work Phone: [facility] 06-12-2024 08:11-0400 Body mass index (BMI) [Ratio] 27.97 kg/m2 Lawrence Finch MD Work Phone: [facility] 06-12-2024 08:11-0400 Body temperature 97 [degF] Lawrence Finch MD Work Phone: [facility] 06-12-2024 08:11-0400 Body weight 96.16 kg Lawrence Finch MD Work Phone: [facility] 06-12-2024 08:11-0400 Diastolic blood pressure 78 mm[Hg] Lawrence Finch MD Work Phone: [facility] 06-12-2024 08:11-0400 Heart rate 93 /min Lawrence Finch MD Work Phone: [facility] 06-12-2024 08:11-0400 SaO2% (BldA) [Mass fraction] 93 % Lawrence Finch MD Work Phone: [facility] 06-12-2024 08:11-0400 Systolic blood pressure 116 mm[Hg] Lawrence Finch MD Work Phone: [facility] Encounters Encounter Date Encounter Type Care Provider Facility Start: 10-29-2024 ambulatory Maile Chun Facility [facility] Start: 09-19-2024 End: 09-19-2024 Patient encounter procedure Bushra CHAMBERLAIN -[facility] Work Phone: Start: 09-19-2024 End: 09-19-2024 ambulatory Maile Chun [employer] Work Phone: -[facility] Start: 08-24-2024 ambulatory Maile Chun Facility :[facility] Start: 08-24-2024 Non-patient / Non-visit Dante Zuñiga nd DO -[facility] Start: 08-24-2024 End: 08-24-2024 Admission to same day surgery center Dante Villela DO -Endoscopy Work Phone: Start: 08-24-2024 End: 08-24-2024 ambulatory Maile Chun [employer] Work Phone: [facility] Work Phone: Start: 06-28-2024 End: 06-28-2024 Patient encounter procedure Bushra CHAMBERLAIN -[facility] Work Phone: Start: 06-28-2024 End: 06-28-2024 Patient encounter procedure Bushra CHAMBERLAIN -[facility] Work Phone: Start: 06-28-2024 End: 06-28-2024 ambulatory Bushra May Facility:[facility] Start: 06-28-2024 End: 06-28-2024 ambulatory Bushra May Facility:[facility] Start: 06-15-2024 End: 06-15-2024 ambulatory Maile Chun NP-C Work Phone: [facility] Work Phone: Start: 06-15-2024 End: 06-15-2024 Patient encounter procedure Maile Chun NP-C -Outpatient Breast Imaging Work Phone: Start: 06-15-2024 End: 06-15-2024 ambulatory Maile Chun Facility:[facility] Start: 06-13-2024 End: 06-13-2024 ambulatory Maile Chun [employer] Work Phone: [facility] Work Phone: Start: 06-13-2024 End: 06-13-2024 Patient encounter procedure Maile Chun NP-C -Laboratory, Specimen Work Phone: Start: 06-13-2024 End: 06-13-[address] Collin Delgado MD -[facility] Start: 06-13-2024 End: 06-13-2024 ambulatory Collin Delgado Facility:[facility] Start: 06-12-2024 End: 06-13-2024 ambulatory LAWRENCE FINCH Facility:[facility] Start: 06-12-2024 End: 06-12-2024 Patient encounter procedure Lawrence Finch MD Work Phone: Endocrinology Comment on above: Postablative hypothy roidism (Primary Dx) Procedures Date Procedure Procedure Detail Performing Clinician Start: 08-24-2024 Colonoscopy Maile schwab [employer] Work Phone: Start: 06-28-2024 Computed tomography of abdomen and pelvis with contrast Maile Chun [employer] Work Phone: Start: 06-15-2024 Screening mammography C mercedez Chun [employer] Work Phone: Start: 06-13-2024 X-ray of cervical spine Maile Chun [employer] Work Phone: Start: 01-25-2020 Colonoscopy Lawrence andersen MD Work Phone: Start: 05-30-2015 Lipid 1996 panel - S umang or Plasma Lawrence Finch MD Work Phone: Plan of Treatment Date Care Activity Detail Author Start: 2033 RSV Vaccine (1 - 1-dose 75+ series) RSV Vaccine (1 - 1-dose 75+ series) [facility] Start: 04-07-2027 Urine microalbumin profile DTaP,Tdap,Td Vaccine (3 - Td or Tdap) [facility] Start: 01-24-2025 Screening for malignant neoplasm of breast Mammogram Screening [facility] Start: 09-11-2024 End: 09-11-2024 Patient encounter procedure 09/11/2024 4:20 PM EDT Office Visit Endocrinology [address] [place] [id number] Lawrence Finch MD [address] [place] [address] 3 month follow up Endocrinology Comment on above: 3 month follow up Start: 08-24-2024 Colonoscopy w/biopsy single/multiple COLONOSCOPY AND BIOPSY [facility] Start: 08-24-2024 Egd transoral biopsy single/multiple EGD BIOPSY SINGLE/MULTIPLE [facility] Start: 08-24-2024 Patient discharge [facility] Start: 06-15-2024 Screening mammography SCRN CHARLES M (CAD)W/JELENA BILAT [facility] Start: 06-12-2024 Patient referral [facility] Work Phone: Start: 03-14-2024 Advance Directive Discussion Advance Directive Discussion [facility] Start: 11-13-2023 Covid-19 Vaccine ( season) Covid-19 Vaccine ( season) [facility] Start: 11-13-2023 Influenza vaccination Influenza Vacc ine (#1) [facility] Start: 09-10-2021 Diabetes Screening Diabetes Screenin g [facility] Start: 01-24-2021 Screening for malignant neoplasm of colon [facility] Start: 05-29-2020 Lipid panel Lipid Screening [facility] Start: 06-02-2016 Screening for malignant neoplasm of colon Fecal Occult Blood [facility] Start: 2008 Pneumococcal Vaccine : 50+ (1 of 1 - PCV) Pneumococcal Vaccine: 50+ (1 of 1 - PCV) [facility] Start: 09-18-2003 Screening for malignant neoplasm of colon [facility] Start: 1976 Anxiety Screening Anxiety Screening [facility] Start: 1976 Depression Screening Depression Scre ening [facility] Start: 1976 Hepatitis C screening Hepatitis C Sc [facility] Start: 1976 HIV screening HIV Screening [facility] Liver stiffness by US.transient elastography [facility] Patient referral [facility] Work Phone: Payers Date Payer Category Payer Medicare [id number] 2024 Self-pay 2024 Unknown [id number] 2024 [employer] Blue [employer] BLUE CARD PPO OOS [id number] 2024 Unknown [id number] Medicare [id number] Unknown [id number] Unknown [id number]. 2.462 Unknown [id number]. 2.462 Unknown [id number]. 2.462 Unknown [id number]. 2.462 Unknown [id number]. 2.462 Unknown [id number]. 2.462 Unknown [id number] [id number]. 2.462 Unknown [id number] [id number]. 2.462 Unknown [id number]. 2.462 Social History Date Type Detail Facility Start: 08-21-2024 Tobacco smoking status NHIS Never smoked tobacco [facility] Start: 06-12-2024 Alcoholic beverage intake Current drinker of alcohol (finding) [facility] Start: 06-12-2024 History of Social function [facility] Start: 06-12-2024 Tobacco use panel [facility] Work Phone: Start: 1960 Sex assigned at Not on file C [facility] Tobacco smoking status KYIS Unknown if ever smoked [facility] Work Phone: Start: 06-18-2024 End: 06-20-2024 Sex Female (finding) [facility] Start: 1960 Sex Assigned At Female W [facility] NEGATED: Highlighted row Not [facility] Medical Equipment Procedure Code Equipment Code Equipment Origin al Text Equipment Identifier Dates Bit Drl Gld 110m m 2.5mm Ss Qc - [id number] Start: 01-31-2012 Bit Drl 125mm 2m m Ss Qc Ns - [id number] Start: 01-31-2012 Wire Fix .062in 5in Cwr Ss Spd - [id number] Start: 01-31-2012 Wire Fix .045in 5in Cwr Ss - [id number] Start: 01-31-2012 Wire Fix .062in 5in Cwr Ss Spd - [id number] Start: 01-31-2012 Goals Date Patient Goal Desired Activity /State Mental Status Date Assessment Result Facility 08-24-2024 Cognitive function Voice/Name [facility] Work Phone: Clinical Notes 06-12-2024 to 08-24-2024 Note Date & Type Note Facility 08-24-2024 Consult note [facility] 08-24-2024 History and physi nathaniel note Note Date/Time August 24, 2024 1:21pm [facility] Medical Records Department [address] [place] [address] History & Physical Exam 08/24/24 1320 MR#: [id number] Acct: [id number] Name: NANETTE SKY LEON Rep #:[id number] : 1960 63 From: Dante Friend PCP: Maile Chun DESULFURIZER HAND-C Status:REG S DC Location: [address] - General General Date of Admission: 08/24/24 Date of Service: 08/24/24 Chief Complaint: Abdominal pain HPI Narrative NANETTE SKY, is a 63 F who presents with Chief Complaint: abdominal pain PMHx diverticulitis with abscess s/p bowel resection. I established 4.1.25 with constipation and heartburn in the evening. Last EGD and colonoscopy in 2019. Pt has a hx of colonic polyps and a duodenal diverticulum. Family hx of colon cancer in her father. OV 4.17.25 Pt here today for new symptoms that started a few days ago. Pt ate leftover fish on Tuesday and then had reflux. This did not go away until she made herself vomit. Then she started to have diffuse abdominal discomfort and bloating. She felt constipated. This is similar to how she felt when she had diverticulitis with an abscess. [facility] Medical History Hypothyroid Arthritis Thyroid disease Migraine headache History of diverticulitis Asthma Non-smoker History of stress test Home Medications ?Medication ?Instructions ?Recorded ?Last Taken ?Type levothyroxine 112 mcg tablet 112 mcg PO QDAY 06/12/24 08/24/24 05:00 History (Synthroid) polyethylene glycol 3350 17 4 g PO ONCE 06/12/24 Unkno wn History gram/dose oral powder (Miralax) sodium,potassium,mag sulfates 17.5 See Rx Instructions PO .COMPLEX 06/12/24 Unknown Rx gram-3.13 gram-1.6 gram oral soln #354 mL (Suprep Bowel Prep Kit) cabergoline 0.5 mg tablet 0.25 mg PO ZHAO 08/21/24 Unkno wn History Allergy/AdvReac Type Severity Reaction Status Date / Time penicillin G Allergy Other Verified 08/21/24 14:27 Surgical History History of appendectomy (02/10/09) History of hand surgery (12/09/22) History of left breast biopsy (01/23/12) History of cholecystectomy (09/10/18) History of umbilical hernia repair (03/11/11) History of colon resection (02/10/09) History of hernia repair (01/21/03) History of bunionectomy of left great toe History of hysterectomy (09/09/98) History of esophagogastroduodenoscopy (EGD) History of colonoscopy Vital Signs Vital Signs Vital Signs: 08/24/24 12:15 08/24/24 12:15 08/24/24 12:51 Temperature 98.3 F 98.3 F Temperature Source Temporal Pulse Rate 64 64 Respiratory Rate 16 16 Respiratory Pattern Normal Blood Pressure 128/79 H 128/79 H Blood Pressure Mean 95 Blood Pressure Source Monitor Blood Pressure Position Semi-Fowlers Blood Pressure Location Right Arm Pulse Ox 96 96 Oxygen Delivery Method Room Air Weight Weight: 205 lb 0.478 oz Body Mass Index (BMI) 27.8 Physical Exam Const alert, oriented x3, no apparent distress and healthy appearing General Appearance: cooperative GI normal to inspection, nondistended, normoactive bowel sounds, soft to palpation,non-tender and non-distended Percussion: normal to percussion Rectal Exam: deferred Assessment & Plan Assessment/Plan (1) Abdominal pain: QUALIFIERS: Abdominal location: generalized Qualified Code(s): R10.84 - Generalized abdominal pain (2) Hx of diverticulitis of colon: (3) History of partial colectomy: (4) Screening for colon cancer: PLAN: Assessment and Plan Assessment and Plan (1) Abdominal pain: Status: Acute Qualifiers: Abdominal location: generalized Qualified Code(s): R10.84 - Generalizedabdominal pain Plan: This is a 63 yo female pt here today for evaluation of abdominal pain x5 days. Pt ate a piece of leftover fish and then had severe reflux, vomiting, abdominal bloating and discomfort. She continues to have the discomfort and some constipation. This feels similar to when she had diverticulitis in the past. I will order a stat CT abd/pelvis to rule out an acute episodes of diverticulitis.Pt is already scheduled for an upcoming EGD and colonoscopy. Will consider treatments pending CT results. -CT abd/pelvis -Pt scheduled for EGD and colonoscopy -Consider treatment pending CT results -f/u after testing (2) Hx of diverticulitis of colon: Status: Acute Orders: 08/24/24 1321 <Electronically signed by Dante Villela DO> Cosigner Signature (if applicable): CC: LUIS Chun; Dante Villela DO~ Signed [facility] Work Phone: 1(236) 190-926906-13-2025 Procedure note [facility] Medical Records Department [address] [place] [address] Colonoscopy Report MR#: [id number] Acct: [id number] Name: NANETTE SKY Rep #:[id number] : 1960 63 From: Dante Villela DO PCP: Maile Chun DESULFURIZER HAND-C Status:REG S DC Patient Name: Nanette Sky Procedure Date: 08/24/2024 2:15 PM Date of : 1960 Age: 63 Procedure: Colonoscopy Indications: Screening for colorectal malignant neoplasm Providers: Dante Villela DO Medicines: Monitored Anesthesia Care Patient Profile: This is a 63 year old female. Refer to note in patient chart for documentation of history and physical. Patient has symptoms of acute epigastric abdominal pain and acute dyspepsia. This is a 63 year old female. Refer to note in patient chart for documentation of history and physical. Last Colonoscopy: several years ago. Complications: No immediate complications. Procedure: Pre-Anesthesia Assessment: - Prior to the procedure, a History and Physical was performed, and patient medications and allergies were reviewed. The patient is competent. The risks and benefits of the procedure and the sedation options and risks were discussed with the patient. All questions were answered and informed consent was obtained. Patient identification and proposed procedure were verified by the physician in the pre-procedure area. Mental Status Examination: alert and oriented. Airway Examination: normal oropharyngeal airway and neck mobility. Respiratory Examination: clear to auscultation. CV Examination: normal. Prophylactic Antibiotics: The patient does not require prophylactic antibiotics. Prior Anticoagulants: The patient has taken no anticoagulant or antiplatelet agents. ASA Grade Assessment: II - A patient with mild systemic disease. After reviewing the risks and benefits, the patient was deemed in satisfactory condition to undergo the procedure. The anesthesia plan was to use monitored anesthesia care (MAC). Immediately prior to administration of medications, the patient was re-assessed for adequacy to receive sedatives. The heart rate, respiratory rate, oxygen saturations, blood pressure, adequacy of pulmonary ventilation, and response to care were monitored throughout the procedure. The physical status of the patient was re-assessed after the procedure. After I obtained informed consent, the scope was passed under direct vision. Throughout the procedure, the patient's blood pressure, pulse, and oxygen saturations were monitored continuously. The Colonoscope was introduced through the anus and advanced to the cecum, identified by appendiceal orifice and ileocecal valve. The entire colon was examined. Scope In: 2:17:56 PM Scope Withdrawal Time 0 hours 8 minutes 29 seconds Scope Out: 2:29:21 PM Total Procedure Duration Time 0 hours 11 minutes 25 seconds Findings: The perianal and digital rectal examinations were normal. A 4 mm polyp was found in the cecum. The polyp was sessile. The polyp was removed with a jumbo cold forceps. Resection and retrieval were complete. Biopsies were taken with a cold forceps for histology. There was evidence of a prior end-to-side colo-colonic anastomosis in the recto-sigmoid colon. This was patent and was characterized by healthy appearing mucosa. The anastomosis was traversed. Impression: - One 4 mm polyp in the cecum, removed with a jumbo cold forceps. Resected and retrieved. Biopsied. - Patent end-to-side colo-colonic anastomosis, characterized by healthy appearing mucosa. Recommendation: - Discharge patient to home. - Resume previous diet. - Continue present medications. - Await pathology results. - Repeat colonoscopy in 5 years for surveillance. Procedure Code(s): --- Professional --- 52288, Colonoscopy, flexible; with biopsy, single or multiple CPT copyright 2021 [employer]. All rights reserved. The codes documented in this report are preliminary and upon accounting policy consultant review may be revised to meet current compliance requirements. Dante Villela DO 08/24/2024 2:51:30 PM This report has been signed electronically. Number of Addenda: 0 Note Initiated On: 08/24/2024 2:15 PM 08/24/24 1451 Date _ Dante López Signature: Date (if indicated) CC: DESULFURIZER HAND-Nadia Chun; Dante Villela DO ~ Date Dictated: 08/24/24 141 Date Transcribed: Chinese Medicine Practitioner: ALVERTO Signed [facility]06-13-2025 Procedure note [facility] Medical Records Department [address] [place] [address] Operative Report - CC Letter MR#: [id number] Acct: [id number] Name: NANETTE SKY Rep #:[id number] : 1960 63 From: Dante Villela DO PCP: LUIS Kevin Status:REG S DC 08/24/2024 Luis Kevin Re : Colonoscopy procedure for Nanette Sky Dear Adiel This procedure was performed on Tuesday, August 24, 2024. My impressions and recommendations are as follows: Impressions : - One 4 mm polyp in the cecum, removed with a jumbo cold forceps. Resected and retrieved. Biopsied. - Patent end-to-side colo-colonic anastomosis, characterized by healthy appearing mucosa. Recommendations : - Discharge patient to home. - Resume previous diet. - Continue present medications. - Await pathology results. - Repeat colonoscopy in 5 years for surveillance. My findings are described in the full procedure note, which is enclosed. If I can be of further assistance, please feel free to contact me at . Sincerely, Dante Villela DO 08/24/2024 2:51:30 PM This report has been signed electronically. 08/24/24 1451 Date _ Dante Villela DO Cosigner Signature: Date (if indicated) CC: DESULFURIZER HANDJose Manuel Villela DO ~ Date Dictated: 08/24/24 1415 Date Transcribed: Chinese Medicine Practitioner: ALVERTO Signed [facility]06-13-2025 Consult note Author Jose Eduardo [facility] Note Date/Time August 24, 2024 12:5 1pm [facility] Medical Records Department [address] [place] [address] Pre-Anesthesia Evaluation 08/24/24 1250 MR#: [id number] Acct: [id number] Name: NANETTE SKY Rep #:[id number] : 1960 63 From: Jose Eduardo Lovelace MD PCP: Maile Chun, DESULFURIZER HAND-C Status:REG S DC Y Race: C Location: [place] [address] ASA Classification* ASA Classification ASA Classification: 2 Assessment & Plan Anesthesia* Anesthesia Assessment Anesthesia Assessment: Discussed sedation and/or anesthesia options, risks, benefits, and alternatives with patient/parents/legal guardian/POA. Questions invited. The patient/parents/legal guardian/POA seems to understand and agrees to proceedwith anesthesia plan. Reviewed the physical assessment, medical history, allergy history and patient home medications list prior to surgery/procedure/anesthetic and documented any changes. Performed airway and anesthesia risk assessments. Anesthesia Type Anesthesia Type: MAC Anesthesia Focused Assessment* Temperature: 98.3 F Pulse Rate: 64 Blood Pressure: 128/79 Respiratory Rate: 16 Pulse Ox: 96 Airway Assessment Mouth opens: >3 cm Mallampati Score: II Labs Anesthesia Preop lab: CBC WBC 5.8 K/mm3 (4.4-11.0) 06/13/24 10:53 06/13/24 RBC 4.67 M/mm3 (4.2-5.4) 06/13/24 10:53 06/13/24 Hgb 14.6 g/dL (12.0-15.0) 06/13/24 10:53 06/13/24 Hct 44.4 % (37-47) 06/13/24 10:53 06/13/24 Plt Count 271 K/mm3 (150-450) 06/13/24 10:53 06/13/24 CHEMISTRY Potassium 4.4 mmol/L (3.3-5.1) 06/13/24 10:53 06/13/24 Sodium 142 mmol/L (133-145) 06/13/24 10:53 06/13/24 BUN 16 mg/dL (4-19) 06/13/24 10:53 06/13/24 Creatinine 0.80 mg/dL (0.70-1.20) 06/13/24 10:53 06/13/24 Glucose 95 mg/dL (70-99) 06/13/24 10:53 06/13/24 COAG Pre-Assessment Diagnosis/Proposed Procedure Planned Operative Procedure(s): EGD, CSCOPE Anesthesia History Anesthesia History - marketing content manager: Anesthesia History - marketing content manager Hx Hospitalization No 08/21/24 14:28 Any Problems With Anesthesia No 08/21/24 14:28 Cholinesterase deficiency No 08/21/24 14:28 You/Your Family Experience No 08/21/24 14:28 fever (hyperthermia) with Relationship Recent Exposure to Contagious No 08/24/24 12:15 Disease Does patient have nerve No 08/21/24 14:28 stimulator Patient instructed to have device shut off --Does patient have Pacemaker or ICD? When Was Last Pacemaker Check QUESTION #4 FULL TEXT: You/Your Family Experience fever (hyperthermia) with Anesthesia Last Oral Intake Last Oral intake: Last Oral Intake NPO since Meds taken in AM with sips of water? Meds patient instructed to take am of surgery PONV PONV - marketing content manager: PONV - marketing content manager Female Yes 08/21/24 14:28 HX of Motion Sickness No 08/21/24 14:28 HX of N/V After Surgery No 08/21/24 14:28 Non-Smoker Yes 08/21/24 14:28 Duration of Surgery greater No 08/21/24 14:28 than 60 minutes Number of Risk Factors 2 08/21/24 14:28 PONV Score Moderate Risk 08/21/24 14:28 Height & Weight Height & Weight: Anesthesia: Height & Weight Height 6 ft 08/24/24 12:15 Weight: 93 kg 08/24/24 12:15 Body Mass Index (BMI) 27.8 08/24/24 12:15 Respiratory Assessment Respiratory Assessment - marketing content manager: Respiratory Tract Infection Hx - marketing content manager Hx Respiratory Tract Infection No 08/21/24 14:28 STOP Sleep Apnea STOP Sleep Apnea - marketing content manager: STOP Sleep Apnea - marketing content manager Hx Hypertension No 08/21/24 14:28 Hx Sleep Apnea No 08/21/24 14:28 CPAP BIPAP Do you snore loudly (louder No 08/21/24 14:28 than talking or can be heard Do you often feel tired/ No 08/21/24 14:28 fatigued/ sleepy during daytime? Has anyone observed you stop No 08/21/24 14:28 breathing during sleep? STOP Results Negative 08/21/24 14:28 QUESTION #5 FULL TEXT : Do you snore loudly (louder than talking or can be heard through closed doors)? 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 Specify any problems Hx of Preganancy in last 3 N/A 08/21/24 14:28 Months Nurse Filling Out Transfusion NBUCHER 08/21/24 14:28 & Questions: Date: 08/21/24 08/21/24 14:28 Time: 14:29 08/21/24 14:28 Patient unable to answer at this time (ie. confused, unrespo /Reproduction History /Reproductive History - marketing content manager: /Reproductive Hx- marketing content manager Hx Now No 08/21/24 14:28 Gestational Age (in weeks): EDC: Hx Hx Para Hx Section SAB No 08/21/24 14:28 Active Medications Active Medications: Current Medications Generic Name Dose Route Start Last Admin Trade Name Freq PRN Reason Stop Dose Admin Lactated Ringer's 1,000 mls @ 15 mls/hr 08/24/24 12:30 IV .Q48H JON PFSH Medical History Hypothyroid Arthritis Thyroid disease Migraine headache History of diverticulitis Asthma Non-smoker History of stress test Home Medications ?Medication ?Instructions ?Recorded ?Last Taken ?Type levothyroxine 112 mcg tablet 112 mcg PO QDAY 06/12/24 08/24/24 05:00 History (Synthroid) polyethylene glycol 3350 17 4 g PO ONCE 06/12/24 Unkno wn History gram/dose oral powder (Miralax) sodium,potassium,mag sulfates 17.5 See Rx Instructions PO .COMPLEX 06/12/24 Unknown Rx gram-3.13 gram-1.6 gram oral soln #354 mL (Suprep Bowel Prep Kit) cabergoline 0.5 mg tablet 0.25 mg PO ZHAO 08/21/24 Unkno wn History Allergy/AdvReac Type Severity Reaction Status Date / Time penicillin G Allergy Other Verified 08/21/24 14:27 Surgical History History of appendectomy (02/10/09) History of hand surgery (12/09/22) History of left breast biopsy (01/23/12) History of cholecystectomy (09/10/18) History of umbilical hernia repair (03/11/11) History of colon resection (02/10/09) History of hernia repair (01/21/03) History of bunionectomy of left great toe History of hysterectomy (09/09/98) History of esophagogastroduodenoscopy (EGD) History of colonoscopy Review of Systems (Anesthesia) ROS Narrative System reviewed and no additional complaints, except as documented. 08/24/24 1251 <Electronically signed by Jose Eduardo Lovelace MD > Date _ Jose Eduardo Lovelace MD Cosigner Signature: Date CC: ~ Signed [facility] Work Phone: 1(854) 930-933406-13-2025 Procedure note [facility] Medical Records Department [address] [place] [address] EGD Report MR#: [id number] Acct: [id number] Name: NANETTE SKY Rep #:[id number] : 1960 63 From: Dante Villela DO PCP: LUIS Kevin Status:REG S DC Patient Name: Nanette Sky Procedure Date: 08/24/2024 1:51 PM Date of : 1960 Age: 63 Procedure: Upper GI endoscopy Indications: Epigastric abdominal pain, Functional Dyspepsia, Suspected esophageal reflux Providers: Dante Villela DO Medicines: Monitored Anesthesia Care Patient Profile: This is a 63 year old female. Refer to note in patient chart for documentation of history and physical. Patient has symptoms of acute epigastric abdominal pain and acute dyspepsia. Complications: No immediate complications. Procedure: Pre-Anesthesia Assessment: - Prior to the procedure, a History and Physical was performed, and patient medications and allergies were reviewed. The patient is competent. The risks and benefits of the procedure and the sedation options and risks were discussed with the patient. All questions were answered and informed consent was obtained. Patient identification and proposed procedure were verified by the physician in the pre-procedure area. Mental Status Examination: alert and oriented. Airway Examination: normal oropharyngeal airway and neck mobility. Respiratory Examination: clear to auscultation. CV Examination: normal. Prophylactic Antibiotics: The patient does not require prophylactic antibiotics. Prior Anticoagulants: The patient has taken no anticoagulant or antiplatelet agents. ASA Grade Assessment: II - A patient with mild systemic disease. After reviewing the risks and benefits, the patient was deemed in satisfactory condition to undergo the procedure. The anesthesia plan was to use monitored anesthesia care (MAC). Immediately prior to administration of medications, the patient was re-assessed for adequacy to receive sedatives. The heart rate, respiratory rate, oxygen saturations, blood pressure, adequacy of pulmonary ventilation, and response to care were monitored throughout the procedure. The physical status of the patient was re-assessed after the procedure. After obtaining informed consent, the endoscope was passed under direct vision. Throughout the procedure, the patient's blood pressure, pulse, and oxygen saturations were monitored continuously. The Colonoscope was introduced through the mouth, and advanced to the fourth part of the duodenum. Small bowel enteroscopy was deemed necessary. The upper GI endoscopy was accomplished without difficulty. The patient tolerated the procedure well. Scope In: 2:09:08 PM Scope Out: 2:15:42 PM Total Procedure Duration Time 0 hours 6 minutes 34 seconds Findings: The Z-line was irregular and was found 40 cm from the incisors. Biopsies were taken with a cold forceps for histology. Patchy mildly erythematous mucosa without bleeding was found in the gastric body. Biopsies were taken with a cold forceps for histology. Biopsies were taken with a cold forceps for histology. Verification of patient identification for the specimen was done. Estimated blood loss was minimal. Biopsies were taken with a cold forceps for Helicobacter pylori testing. Verification of patient identification for the specimen was done. Estimated blood loss was minimal. A large polypoid mass with no bleeding was found in the first portion of the duodenum. Biopsies were taken with a cold forceps for histology. Verification of patient identification for the specimen was done. Estimated blood loss was minimal. Impression: - Z-line irregular, 40 cm from the incisors. Biopsied. - Erythematous mucosa in the gastric body. Biopsied. 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 Biopsied. Recommendation: - Discharge patient to home. - Resume previous diet. - Continue present medications. - Await pathology results. Procedure Code(s): --- Professional --- 52296, Small intestinal endoscopy, enteroscopy beyond second portion of duodenum, not including ileum; with biopsy, single or multiple CPT copyright 2021 [employer]. All rights reserved. The codes documented in this report are preliminary and upon accounting policy consultant review may be revised to meet current compliance requirements. Dante Villela DO 08/24/2024 2:42:29 PM This report has been signed electronically. Number of Addenda: 0 Note Initiated On: 08/24/2024 1:51 PM 08/24/24 1442 Date _ Dante Villela DO Cosigner Signature: Date (if indicated) CC: DESULFURIZER HANDJagjitC Maile Chun; Dante Villela DO ~ Date Dictated: 08/24/24 135 Date Transcribed: Chinese Medicine Practitioner: ALVERTO [facility] Procedure note [facility] Medical Records Department [address] [place] [address] Operative Report - CC Letter MR#: [id number] Acct: [id number] Name: NANETTE SKY Rep #:[id number] : 1960 63 From: Dante Villela DO PCP: LUIS Kevin Status:REG S DC 08/24/2024 Luis Kevin Re : Upper GI endoscopy procedure for Nanette Sky Dear Adiel This procedure was performed on Saturday, August 24, 2024. My impressions and recommendations are as follows: Impressions : - Z-line irregular, 40 cm from the incisors. Biopsied. - Erythematous mucosa in the gastric body. Biopsied. 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 Biopsied. Recommendations : - Discharge patient to home. - Resume previous diet. - Continue present medications. - Await pathology results. My findings are described in the full procedure note, which is enclosed. If I can be of further assistance, please feel free to contact me at . Sincerely, Dante Villela DO 08/24/2024 2:42:29 PM This report has been signed electronically. 08/24/241441 Date _ Dante Bluntignmary Signature: Date (if indicated) CC: DESULFURIZER HAND-C Maile Villela DO ~ Date Dictated: 08/24/241350 Date Transcribed: Chinese Medicine Practitioner: ALVERTO [facility]06[facility]25 Consult note [facility] Medical Records Department [address] [place] [address] Anesthesia Postop Eval I 08/24/24 144 MR#: [id number] Acct: [id number] Name: NANETTE SKY LEON Rep #:[id number] : 1960 63 From: Azeem Coffman PCP: Maile Chun NP-C Status:REG S DC Y Race: C Location: [place] [address] Anesthesia: Postop Eval I Current Vital Signs Temperature: 97.8 F Pulse Rate: 97 Blood Pressure: 96/73 Respiratory Rate: 18 Pulse Ox: 96 Oxygen Delivery Method: Room Air Assessment Airway patent: Yes Spontaneous unlabored respirations: Yes Mental status: Awake and Calm nausea: No Vomiting: No Anesthesia Complication: No Fluid Hydration Crystalloid volume administer (ml): 700 Total IV fluid infused: 700 Progress Note Anesthesia document: Postop Eval 1 completed: Yes 08/24/24 1442 > Date _ Azeem Fernandez Signature: Date CC: ~ [facility]igned [facility]06[facility]13[facility]25 History and physical note [facility] Medical Records Department [address] [place] [id number] History & Physical Exam 08/24/24 1320 MR#: [id number] Acct: [id number] Name: NANETTE SKY LEON Rep #:[id number] : 1960 63 From: Dante Villela DO PCP: TITO KevinC Status:REG S DC Location: [place] [address] HPI - General General Date of Admission: 08/24/24 Date of Service: 08/24/24 Chief Complaint: Abdominal pain HPI Narrative NANETTE SKY, is a 63 F who presents with Chief Complaint: abdominal pain PMHx diverticulitis with abscess s/p bowel resection. BGI established 4.1.25 with constipation and heartburn in the evening. Last EGD and colonoscopy in 2019. Pt has a hx of colonic polyps and a duodenal diverticulum. Family hx of colon cancer in her father. OV 4.17.25 Pt here today for new symptoms that started a few days ago. Pt ate leftover fish on Tuesday and then had reflux. This did not go away until she made herself vomit. Then she started to have diffuse abdominal discomfort and bloating. She felt constipated. This is similar to how she felt when she had diverticulitis with an abscess. [facility] Medical History Hypothyroid Arthritis Thyroid disease Migraine headache History of diverticulitis Asthma Non-smoker History of stress test Home Medications ?Medication ?Instructions ?Recorded ?Last Taken ?Type levothyroxine 112 mcg tablet 112 mcg PO QDAY 06/12/24 08/24/24 05:00 History (Synthroid) polyethylene glycol 3350 17 4 g PO ONCE 06/12/24 Unkno wn History gram/dose oral powder (Miralax) sodium,potassium,mag sulfates 17.5 See Rx Instructions PO .COMPLEX 06/12/24 Unknown Rx gram-3.13 gram-1.6 gram oral soln #354 mL (Suprep Bowel Prep Kit) cabergoline 0.5 mg tablet 0.25 mg PO ZHAO 08/21/24 Unkno wn History Allergy/AdvReac Type Severity Reaction Status Date / Time penicillin G Allergy Other Verified 08/21/24 14:27 Surgical History History of appendectomy (02/10/09) History of hand surgery (12/09/22) History of left breast biopsy (01/23/12) History of cholecystectomy (09/10/18) History of umbilical hernia repair (03/11/11) History of colon resection (02/10/09) History of hernia repair (01/21/03) History of bunionectomy of left great toe History of hysterectomy (09/09/98) History of esophagogastroduodenoscopy (EGD) History of colonoscopy Vital Signs Vital Signs Vital Signs: 08/24/24 12:15 08/24/24 12:15 08/24/24 12:51 Temperature 98.3 F 98.3 F Temperature Source Temporal Pulse Rate 64 64 Respiratory Rate 16 16 Respiratory Pattern Normal Blood Pressure 128/79 H 128/79 H Blood Pressure Mean 95 Blood Pressure Source Monitor Blood Pressure Position Semi-Fowlers Blood Pressure Location Right Arm Pulse Ox 96 96 Oxygen Delivery Method Room Air Weight Weight: 205 lb 0.478 oz Body Mass Index (BMI) 27.8 Physical Exam Const alert, oriented x3, no apparent distress and healthy appearing General Appearance: cooperative GI normal to inspection, nondistended, normoactive bowel sounds, soft to palpation,non-tender and non-distended Percussion: normal to percussion Rectal Exam: deferred Assessment & Plan Assessment/Plan (1) Abdominal pain: QUALIFIERS: Abdominal location: generalized Qualified Code(s): R10.84 - Generalized abdominal pain (2) Hx of diverticulitis of colon: (3) History of partial colectomy: (4) Screening for colon cancer: PLAN: Assessment and Plan Assessment and Plan (1) Abdominal pain: Status: Acute Qualifiers: Abdominal location: generalized Qualified Code(s): R10.84 - Generalizedabdominal pain Plan: This is a 63 yo female pt here today for evaluation of abdominal pain x5 days. Pt ate a piece of leftover fish and then had severe reflux, vomiting, abdominal bloating and discomfort. She continues to have the discomfort and some constipation. This feels similar to when she had diverticulitis in the past. I will order a stat CT abd/pelvis to rule out an acute episodes of diverticulitis.Pt is already scheduled for an upcoming EGD and colonoscopy. Will consider treatments pending CT results. -CT abd/pelvis -Pt scheduled for EGD and colonoscopy -Consider treatment pending CT results -f/u after testing (2) Hx of diverticulitis of colon: Status: Acute Orders: 08/24/24 1321 Cosigner Signature (if applicable): CC: DESULFURIZER HANDJose Manuel Chun; Dante Villela, ~ Signed [facility]06-13-2025 [facility] Medical Records Department [address] [place] [address] History Physical Exam 08/24/24 1320 MR#: [id number] Acct: [id number] Name: NANETTE SKY LEON Rep #: [id number] : 1960 63 From: Dante Villela DO PCP: Maile Chun NP-C Status:REG [facility] Location: [place] [address] HPI - General General Date of Admission: 08/24/24 Date of Service: 08/24/24 Chief Complaint: Abdominal pain HPI Narrative NANETTE SKY, is a 63 F who presents with Chief Complaint: abdominal pain PMHx diverticulitis with abscess s/p bowel resection. BGI established 4.1.25 with constipation and heartburn in the evening. Last EGD and colonoscopy in 2019. Pt has a hx of colonic polyps and a duodenal diverticulum. Family hx of colon cancer in her father. OV 4.17.25 Pt here today for new symptoms that started a few days ago. Pt ate leftover fish on Tuesday and then had reflux. This did not go away until she made herself vomit. Then she started to have diffuse abdominal discomfort and bloating. She felt constipated. This is similar to how she felt when she had diverticulitis with an abscess. [facility] Medical History Hypothyroid Arthritis Thyroid disease Migraine headache History of diverticulitis Asthma Non-smoker History of stress test Home Medications ???Medication ???Instructions ???Recorded ???Last Taken ???Type levothyroxine 112 mcg tablet 112 mcg PO QDAY 06/12/24 08/24/24 05:00 History (Synthroid) polyethylene glycol 3350 17 4 g PO ONCE 06/12/24 Unknown Histo ry gram/dose oral powder (Miralax) sodium,potassium,mag sulfates 17.5 See Rx Instructions PO .COMPLEX 06/12/24 Unknown Rx gram-3.13 gram-1.6 gram oral soln #354 mL (Suprep Bowel Prep Kit) cabergoline 0.5 mg tablet 0.25 mg PO ZHAO 08/21/24 Unknown His tory Allergy/AdvReac Type Severity Reaction Status Date / Time penicillin G Allergy Other Verified 08/21/24 14:27 Surgical History History of appendectomy (02/10/09) History of hand surgery (12/09/22) History of left breast biopsy (01/23/12) History of cholecystectomy (09/10/18) History of umbilical hernia repair (03/11/11) History of colon resection (02/10/09) History of hernia repair (01/21/03) History of bunionectomy of left great toe History of hysterectomy (09/09/98) History of esophagogastroduodenoscopy (EGD) History of colonoscopy Vital Signs Vital Signs Vital Signs: 08/24/24 12:15 08/24/24 12:15 08/24/24 12:51 Temperature 98.3 F 98.3 F Temperature Source Temporal Pulse Rate 64 64 Respiratory Rate 16 16 Respiratory Pattern Normal Blood Pressure 128/79 H 128/79 H Blood Pressure Mean 95 Blood Pressure Source Monitor Blood Pressure Position Semi-Fowlers Blood Pressure Location Right Arm Pulse Ox 96 96 Oxygen Delivery Method Room Air Weight Weight: 205 lb 0.478 oz Body Mass Index (BMI) 27.8 Physical Exam Const alert, oriented x3, no apparent distress and healthy appearing General Appearance: cooperative GI normal to inspection, nondistended, normoactive bowel sounds, soft to palpation, non-tender and non- distended Percussion: normal to percussion Rectal Exam: deferred Assessment Plan Assessment/Plan (1) Abdominal pain: QUALIFIERS: Abdominal location: generalized Qualified Code(s): R10.84 - Generalized abdominal pain (2) Hx of diverticulitis of colon: (3) History of partial colectomy: (4) Screening for colon cancer: PLAN: Assessment and Plan Assessment and Plan (1) Abdominal pain: Status: Acute Qualifiers: Abdominal location: generalized Qualified Code(s): R10.84 - Generalized abdominal pain Plan: This is a 63 yo female pt here today for evaluation of abdominal pain x5 days. Pt ate a piece of leftover fish and then had severe reflux, vomiting, abdominal bloating and discomfort. She continues to have the discomfort and some constipation. This feels similar to when she had diverticulitis in the past. I will order a stat CT abd/pelvis to rule out an acute episodes of diverticulitis. Pt is already scheduled for an upcoming EGD and colonoscopy. Will consider treatments pending CT results. -CT abd/pelvis -Pt scheduled for EGD and colonoscopy -Consider treatment pending CT results -f/u after testing (2) Hx of diverticulitis of colon: Status: Acute Orders: 08/24/24 1321 Cosigner Signature (if applicable): CC: DESULFURIZER HAND-C Maile Chun; Dante Friend, [facility] Consult note [facility] Medical Records Department [address] [place] [address] Pre-Anesthesia Evaluation 08/24/24 1250 MR#: [id number] Acct: [id number] Name: NANETTE SKY Rep #:[id number] : 1960 63 From: Jose Eduardo Lovelace MD PCP: Maile hCun, DESULFURIZER HAND-C Status:REG S DC Y Race: C Location: [place] [address] ASA Classification* ASA Classification ASA Classification: 2 Assessment & Plan Anesthesia* Anesthesia Assessment Anesthesia Assessment: Discussed sedation and/or anesthesia options, risks, benefits, and alternatives with patient/parents/legal guardian/POA. Questions invited. The patient/parents/legal guardian/POA seems to understand and agrees to proceedwith anesthesia plan. Reviewed the physical assessment, medical history, allergy history and patient home medications list prior to surgery/procedure/anesthetic and documented any changes. Performed airway and anesthesia risk assessments. Anesthesia Type Anesthesia Type: MAC Anesthesia Focused Assessment* Temperature: 98.3 F Pulse Rate: 64 Blood Pressure: 128/79 Respiratory Rate: 16 Pulse Ox: 96 Airway Assessment Mouth opens: >3 cm Mallampati Score: II Labs Anesthesia Preop lab: CBC WBC 5.8 K/mm3 (4.4-11.0) 06/13/24 10:53 06/13/24 RBC 4.67 M/mm3 (4.2-5.4) 06/13/24 10:53 06/13/24 Hgb 14.6 g/dL (12.0-15.0) 06/13/24 10:53 06/13/24 Hct 44.4 % (37-47) 06/13/24 10:53 06/13/24 Plt Count 271 K/mm3 (150-450) 06/13/24 10:53 06/13/24 CHEMISTRY Potassium 4.4 mmol/L (3.3-5.1) 06/13/24 10:53 06/13/24 Sodium 142 mmol/L (133-145) 06/13/24 10:53 06/13/24 BUN 16 mg/dL (4-19) 06/13/24 10:53 06/13/24 Creatinine 0.80 mg/dL (0.70-1.20) 06/13/24 10:53 06/13/24 Glucose 95 mg/dL (70-99) 06/13/24 10:53 06/13/24 COAG Pre-Assessment Diagnosis/Proposed Procedure Planned Operative Procedure(s): EGD, CSCOPE Anesthesia History Anesthesia History - marketing content manager: Anesthesia History - marketing content manager Hx Hospitalization No 08/21/24 14:28 Any Problems With Anesthesia No 08/21/24 14:28 Cholinesterase deficiency No 08/21/24 14:28 You/Your Family Experience No 08/21/24 14:28 fever (hyperthermia) with Relationship Recent Exposure to Contagious No 08/24/24 12:15 Disease Does patient have nerve No 08/21/24 14:28 stimulator Patient instructed to have device shut off --Does patient have Pacemaker or ICD? When Was Last Pacemaker Check QUESTION #4 FULL TEXT: You/Your Family Experience fever (hyperthermia) with Anesthesia Last Oral Intake Last Oral intake: Last Oral Intake NPO since Meds taken in AM with sips of water? Meds patient instructed to take am of surgery PONV PONV - marketing content manager: PONV - marketing content manager Female Yes 08/21/24 14:28 HX of Motion Sickness No 08/21/24 14:28 HX of N/V After Surgery No 08/21/24 14:28 Non-Smoker Yes 08/21/24 14:28 Duration of Surgery greater No 08/21/24 14:28 than 60 minutes Number of Risk Factors 2 08/21/24 14:28 PONV Score Moderate Risk 08/21/24 14:28 Height & Weight Height & Weight: Anesthesia: Height & Weight Height 6 ft 08/24/24 12:15 Weight: 93 kg 08/24/24 12:15 Body Mass Index (BMI) 27.8 08/24/24 12:15 Respiratory Assessment Respiratory Assessment - marketing content manager: Respiratory Tract Infection Hx - marketing content manager Hx Respiratory Tract Infection No 08/21/24 14:28 STOP Sleep Apnea STOP Sleep Apnea - marketing content manager: STOP Sleep Apnea - marketing content manager Hx Hypertension No 08/21/24 14:28 Hx Sleep Apnea No 08/21/24 14:28 CPAP BIPAP Do you snore loudly (louder No 08/21/24 14:28 than talking or can be heard Do you often feel tired/ No 08/21/24 14:28 fatigued/ sleepy during daytime? Has anyone observed you stop No 08/21/24 14:28 breathing during sleep? STOP Results Negative 08/21/24 14:28 QUESTION #5 FULL TEXT : Do you snore loudly (louder than talking or can be heard through closeddoors)? 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 Specify any problems Hx of Preganancy in last 3 N/A 08/21/24 14:28 Months Nurse Filling Out Transfusion NBUCHER 08/21/24 14:28 & Questions: Date: 08/21/24 08/21/24 14:28 Time: 14:29 08/21/24 14:28 Patient unable to answer at this time (ie. confused, unrespo /Reproduction History /Reproductive History - marketing content manager: /Reproductive Hx- marketing content manager Hx Now No 08/21/24 14:28 Gestational Age (in weeks): EDC: Hx Hx Para Hx Section SAB No 08/21/24 14:28 Active Medications Active Medications: Current Medications Generic Name Dose Route Start Last Admin Trade Name Freq PRN Reason Stop Dose Admin Lactated Ringer's 1,000 mls @ 15 mls/hr 08/24/24 12:30 IV .Q48H JON PFSH Medical History Hypothyroid Arthritis Thyroid disease Migraine headache History of diverticulitis Asthma Non-smoker History of stress test Home Medications ?Medication ?Instructions ?Recorded ?Last Taken ?Type levothyroxine 112 mcg tablet 112 mcg PO QDAY 06/12/24 08/24/24 05:00 History (Synthroid) polyethylene glycol 3350 17 4 g PO ONCE 06/12/24 Unkno wn History gram/dose oral powder (Miralax) sodium,potassium,mag sulfates 17.5 See Rx Instructions PO .COMPLEX 06/12/24 Unknown Rx gram-3.13 gram-1.6 gram oral soln #354 mL (Suprep Bowel Prep Kit) cabergoline 0.5 mg tablet 0.25 mg PO ZHAO 08/21/24 Unkno wn History Allergy/AdvReac Type Severity Reaction Status Date / Time penicillin G Allergy Other Verified 08/21/24 14:27 Surgical History History of appendectomy (02/10/09) History of hand surgery (12/09/22) History of left breast biopsy (01/23/12) History of cholecystectomy (09/10/18) History of umbilical hernia repair (03/11/11) History of colon resection (02/10/09) History of hernia repair (01/21/03) History of bunionectomy of left great toe History of hysterectomy (09/09/98) History of esophagogastroduodenoscopy (EGD) History of colonoscopy Review of Systems (Anesthesia) ROS Narrative System reviewed and no additional complaints, except as documented. 08/24/24 1251 > Date _ Jose Eduardo Lovelace MD Cosigner Signature: Date CC: ~ [facility]igned [facility]04[facility] Evaluation note* Diagnosis Onset Date Resolution Status Admit Date Does not have primary care provider acute June 12, 2024 1:00pm History of partial colectomy acute June 12, 2024 1:00pm Screening for colon cancer acute June 12, 2024 1:00pm [facility] Work Phone: 1(269) 336-412404-01-2025 Evaluation note* Diagnosis Onset Date Resolution Status Admit Date Does not have primary care provider acute June 12, 2024 1:00pm History of partial colectomy acute June 12, 2024 1:00pm Screening for colon cancer acute June 12, 2024 1:00pm Abdominal pain acute June 8:36am Hx of diverticulitis of colon acute June 28, 2024 8:36am Abdominal pain acute August 24, 2024 12:09pm History of partial colectomy acute August 24, 2024 12:09pm Hx of diverticulitis of colon acute August 24, 2024 12:09pm Screening for colon cancer acute August 24, 2024 12:09pm [facility] Work Phone: 1(652) 582-766904-01-2025 Evaluation note* Diagnosis Onset Date Resolution Status Admit Date Does not have primary care provider acute June 12, 2024 1:00pm History of partial colectomy acute June 12, 2024 1:00pm Screening for colon cancer acute June 12, 2024 1:00pm Abdominal pain acute June 8:36am Hx of diverticulitis of colon acute June 28, 2024 8:36am Abdominal pain acute August 24, 2024 12:09pm History of partial colectomy acute August 24, 2024 12:09pm Hx of diverticulitis of colon acute August 24, 2024 12:09pm Screening for colon cancer acute August 24, 2024 12:09pm Fatty liver acute September 19 7:28am [facility] Work Phone: [phone] Instructions* Patient Instructions* Lawrence Finch MD - 06/12/2024 8:47 AM EDT Please do labs today Continue 112 mcg of synthroid, dose may be adjusted pending results [facility] History of Present illness Narrative* Lawrence Finch MD - 06/12/2024 8:39 AM EDT Images from the original note were not included. 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 She moved from [place], [place] in Jan 2024 Hyperthyroidism: - Diagnosed in 2016; underwent radioactive ablation 2-3 years later. - Currently on Synthroid; last thyroid labs in September were normal. 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 Current treatment: 112 mcg of synthroid daily, has been on this dose for long time Takes on an empty stomach, 30-60 minutes before eating and 2-4 hours separate from vitamin or calcium intake. She also reports of low pituitary function for which she was started on cabergoline 0.25 mg weekly and is currently on it for the last 2-3 years. She could not specify any other details on this medication. On chart review, Diagnosed with hyperthyroidism ~2016 in the context of physical exam. Work up showed toxic MNG. Was started on methimazole, then had CASTANEDA ablation 02/2020. TSH got very high but was hesitant about starting thyroid hormone replacement and did not start right away. Did eventually start it earlier this year, but says initial dose was too high (125 mcg) and was reduced to 112 mg daily. She had hysterectomy at age 37 but ovaries were kept, not sure when menopause was for her. Was recently prescribed Progesterone by OB-Sports Information Director for sleep but it caused breast tenderness after a few doses so she stopped. She was also noted to have mildly elevated prolactin level on panel done by Ob- Sports Information Director. This was repeated fasting for confirmation and was persistently elevated. Follow up pituitary MRI in 12/2021 showeda 4 mm microadenoma, and she was subsequently started on cabergoline. She has no history of amiodarone or lithium use or recent iodinated contrast exposure. She is not taking biotin but is taking a B-complex General symptoms: Tremors + - Denies weight changes, increased appetite, or palpitations. - Energy levels are stable; plans to resume walking now that winter is over. - No changes in bowel habits; uses Miralax PRN for regularity. Denies diarrhea. - Recent stressors include moving and job changes. Positive family history of thyroid disease - multiple sisters. REVIEW OF SYSTEMS: GENERAL:No weight loss, malaise or fevers HEENT:Negative for frequent or significant headaches, No changes in hearing or vision, no nose bleeds or other nasal problems NECK:Negative for lumps, goiter, pain and significant neck swelling RESPIRATORY: Negative for cough, hemoptysis, wheezing or shortness of breath CARDIOVASCULAR: Negative for chest pain, leg swelling or palpitations GASTROINTESTINAL: No nausea, vomiting, or persistent diarrhea GENITOURINARY: no dysuria, Polyuria, no changes in urinary frequency MUSCULOSKELETAL:no muscle aches, arthralgia NEUROLOGIC: no numbness, tingling, no Paresthesias, no headaches SKIN:Negative for lesions, rash, and itching PSYCHIATRIC: Negative for sleep disturbance, mood disorder and recent psychosocial stressors. HEMATOLOGIC/LYMPHATIC/IMMUNOLOGIC:Negative for prolonged bleeding, bruising easily ENDOCRINE: Negative for cold or heat intolerance or goiter ALLERGIES: ALLERGIES Allergen Reactions Penicillins Unknown Unknown MEDICATIONS: Current Outpatient Medications on File Prior to Visit Medication Sig cabergoline (DOSTINEX) 0.5 mg tablet Take 0.25 mg by mouth one time a week. cetirizine (ZYRTEC) 10 mg tablet Take 1 tablet by mouth once daily. levothyroxine (SYNTHROID) 112 mcg tablet Take 112 mcg by mouth daily before breakfast. omega-3/dha/epa/dpa/fish oil (OMEGA-3 2100 ORAL) Take by mouth. Ascorbic Acid (VITAMIN C) 1,000 mg tablet Take 1,000 mg by mouth once daily. calcium carbonate/vitamin D3 (CALTRATE 600 + D ORAL) Take by mouth. VITAMIN D2-VITAMIN K1 ORAL Take by mouth. ascorbic acid/collagen hydr (COLLAGEN SKIN RENEWAL ORAL) Take by mouth two times a day. acyclovir (ZOVIRAX) 5 % ointment Apply 1 application to affected area five times daily. (Patient not taking: Reported on 06/12/2024) No current facility-administered medications on file prior to visit. PAST MEDICAL HISTORY: PAST MEDICAL HISTORY Diagnosis Date Diverticulitis s/p colon resection 2008 12 in removed Herpes Migraine headache came back end of apr Nontoxic uninodular goiter s/P FNA in 2009, benign PAST SURGICAL HISTORY: PAST SURGICAL HISTORY Procedure Laterality Date BOWEL RESECTION HX 2009 S/P diverticulitis COLONOSCOPY 2008, 2009 Dr. Blakely CUSTOM BASIC PRK/LASIK SURGERY both eyes 2011 FOOT SURGERY HX Left 01/2012 BUNIONECTOMY HYSTERECTOMY HX AGE 38 Partial, Ovaries in, MMR PAST SURGICAL HISTORY OF 2009 umbilical hernia with mesh-Dr. Blakely TONSILLECTOMY HX AGE 28 FAMILY HISTORY: FAMILY HISTORY Problem Relation Age of Onset Prostate Cancer Father Gastric CA, [place], pancreatitis Stroke Mother Alzheimer's other (thyroid ca [Other]) Sister psych - hypochondriac other (Thyroid ca [Other]) Sister None Sister Heart Father other (Parkinson's [Other]) Other SOCIAL HISTORY: Social History Tobacco Use Smoking status: Never Substance Use Topics Alcohol use: Yes Comment: occ glass Drug use: No PHYSICAL EXAM: BP 116/78 (BP Site: Right Arm, BP Position: Sitting, BP Cuff Size: Large Adult) Pulse 93 Temp 36.1 C (97 F) (Temporal Artery) Wt 96.2 kg (212 lb) SpO2 93% BMI 27.97 kg/m Last 3 Encounter Wt Readings: Date: Wt: 06/12/2024 96.2 kg (212 lb) 07/04/2015 93.4 kg (205 lb 14.4 oz) 05/30/2015 92.5 kg (204 lb) General: Alert and oriented x3, no acute distress, dressing on nasal side of left cheek Eyes: Anicteric sclera. Extraocular movements are intact. Neck supple, no cervical lymphadenopathy Thyroid: shrunken in size, nodular Lungs: Breathing unlabored Heart regular rate and rhythm, S1 and S2 normal Musculoskeletal: No joint swelling, deformity, or tenderness Neuro: Gait normal. Sensation grossly intact. No focal findings Extremities: no obvious tremors, no edema, no deformities Skin: no rashes/ erythema LABS: Latest Ref Rng 05/30/2015 Free T3 2.7 - 4.7 pg/mL 3.7 Free T4 0.8 - 1.5 ng/dL 1.1 TSH 0.340 - 5.600 uU/mL 0.040 (L) Vitamin D 25 Hydroxy 31.0 - 80.0 ng/mL 39.6 Estradiol 17B pg/mL 5 FSH mU/mL 131.6 LH mU/mL 48.4 Legend: (L) Low 04/11/2024 TSH 0.730 Free T4 1.68 Thyroid Peroxidase Ab Date Value Ref Range Status 12/25/2020 <8 0 - 34 IU/mL Final 07/12/2016 8 0 - 34 IU/mL Final Prolactin Date Value Ref Range Status 07/15/2023 43.5 (H) 3.6 - 25.2 ng/mL Final Cortisol Date Value Ref Range Status 04/11/2023 17.3 6.2 - 19.4 ug/dL Final Comment: Please Note: The reference interval and flagging for this test is for an AM collection. If this is a PM collection please use: Cortisol PM: 2.3-11.9 ACTH Date Value Ref Range Status 04/11/2023 15.1 7.2 - 63.3 pg/mL Final Comment: ACTH reference interval for samples collected between 7 and 10 AM. FNAB: 04/25/2008 A: THYROID LEFT, FINE NEEDLE ASPIRATE FINAL DIAGNOSIS A. THYROID LEFT, FINE NEEDLE ASPIRATE NEGATIVE FOR MALIGNANT CELLS. CYST CONTENTS AND BENIGN FOLLICULAR EPITHELIAL CELLS. NM Thyroid uptake scan: ASSESSMENT/PLAN: Acquired hypothyroidism- Postablative Recent labs in 09/2023 within normal Currently on 112 mcg of levothyroxine daily Takes appropriately Recommended labs today Hx of hyperprolactinemia Pituitary microadenoma On cabergoline 0.25 mg weekly No recent prolactin levels available. Repeat levels today Declined refills today Follow up in 6 months if labs are normal. If abnormal, will adjust dose and repeat labs in 2 monthswith follow up in 3 to 6 months Medical Decision Making: Problems: Moderate: 2+ stable chronic illnesses Data: Unique test result(s) reviewed: 3+ Unique test(s) ordered: 3+ Independent interpretation of test from other physician/QHCP Medical Decision Making Level: 4 - Moderate [facility] NoteHNO ID: [id number] Author: LAWRENCE FINCH MD Service: ? 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 She moved from [place], [place] in Jan 2024 Hyperthyroidism: - Diagnosed in 2016; underwent radioactive ablation 2-3 years later. - Currently on Synthroid; last thyroid labs in September were normal. 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 Current treatment: 112 mcg of synthroid daily, has been on this dose for long time Takes on an empty stomach, 30-60 minutes before eating and 2-4 hours separate from vitamin or calcium intake. She also reports of low pituitary function for which she was started on cabergoline 0.25 mg weekly and is currently on it for the last 2-3 years. She could not specify any other details on this medication. On chart review, Diagnosed with hyperthyroidism ~2016 in the context of physical exam. Work up showed toxic MNG. Was started on methimazole, then had CASTANEDA ablation 02/2020. TSH got very high but was hesitant about starting thyroid hormone replacement and did not start right away. Did eventually start it earlier this year, but says initial dose was too high (125 mcg) and was reduced to 112 mg daily. She had hysterectomy at age 37 but ovaries were kept, not sure when menopause was for her. Was recently prescribed Progesterone by OB-Sports Information Director for sleep but it caused breast tenderness after a few doses so she stopped. She was also noted to have mildly elevated prolactin level on panel done by [employer] Information Director. This was repeated fasting for confirmation and was persistently elevated. 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 She has no history of amiodarone or lithium use or recent iodinated contrast exposure. She is not taking biotin but is taking a B-complex General symptoms: Tremors + - Denies weight changes, increased appetite, or palpitations. - Energy levels are stable; plans to resume walking now that winter is over. - No changes in bowel habits; uses Miralax PRN for regularity. Denies diarrhea. - Recent stressors include moving and job changes. Positive family history of thyroid disease - multiple sisters. REVIEW OF SYSTEMS: GENERAL:No weight loss, malaise or fevers HEENT:Negative for frequent or significant headaches, No changes in hearing or vision, no nose bleeds or other nasal problems NECK:Negative for lumps, goiter, pain and significant neck swelling RESPIRATORY: Negative for cough, hemoptysis, wheezing or shortness of breath CARDIOVASCULAR: Negative for chest pain, leg swelling or palpitations GASTROINTESTINAL: No nausea, vomiting, or persistent diarrhea GENITOURINARY: no dysuria, Polyuria, no changes in urinary frequency MUSCULOSKELETAL:no muscle aches, arthralgia NEUROLOGIC: no numbness, tingling, no Paresthesias, no headaches SKIN:Negative for lesions, rash, and itching PSYCHIATRIC: Negative for sleep disturbance, mood disorder and recent psychosocial stressors. HEMATOLOGIC/LYMPHATIC/IMMUNOLOGIC:Negative for prolonged bleeding, bruising easily ENDOCRINE: Negative for cold or heat intolerance or goiter ALLERGIES: ALLERGIES Allergen Reactions Penicillins Unknown Unknown MEDICATIONS: Current Outpatient Medications on File Prior to Visit Medication Sig cabergoline (DOSTINEX) 0.5 mg tablet Take 0.25 mg by mouth one time a week. cetirizine (ZYRTEC) 10 mg tablet Take 1 tablet by mouth once daily. levothyroxine (SYNTHROID) 112 mcg tablet Take 112 mcg by mouth daily before breakfast. omega-3/dha/epa/dpa/fish oil (OMEGA-3 2100 ORAL) Take by mouth. Ascorbic Acid (VITAMIN C) 1,000 mg tablet Take 1,000 mg by mouth once daily. calcium carbonate/vitamin D3 (CALTRATE 600 + D ORAL) Take by mouth. VITAMIN D2-VITAMIN K1 ORAL Take by mouth. ascorbic acid/collagen hydr (COLLAGEN SKIN RENEWAL ORAL) Take by mouth two times a day. acyclovir (ZOVIRAX) 5 % ointment Apply 1 application to affected area five times daily. (Patient not taking: Reported on 06/12/2024) No current facility-administered medications on file prior to visit. PAST MEDICAL HISTORY: PAST MEDICAL HISTORY Diagnosis Date Diverticulitis s/p colon resection 2008 12 in removed Herpes Migraine headache came back end of apr Nontoxic uninodular goiter s/P FNA in 2009, benign PAST SURGICAL HISTORY: PAST SURGICAL HISTORY Procedure Laterality Date BOWEL RESECTION HX 2009 S/P diverticulitis COLONOSCOPY 2008, 2009 Dr. Blakely CUSTOM BASIC PRK/LASIK SURGERY both eyes 2012 FOOT SURGERY HX Left 01/2012 BUNIONECTOMY HYSTERECTOMY HX AGE 38 Partial, Ovaries in, MMR PAST SURGICAL HISTORY OF 2010 umbilical h (more content not included)...[facility] note Author Aze[facility] Note Date/Time August 24, 2024 2:42 pm [facility] Medical Records Department [address] [place] [address] Anesthesia Postop Eval I 08/24/24 1441 MR#: [id number] Acct: [id number] Name: NANETTE SKY Rep #:[id number] : 1960 63 From: Azeem Coffman PCP: Maile Chun DESULFURIZER HAND-C Status:REG S DC Y Race: C Location: [place] [address] Anesthesia: Postop Eval I Current Vital Signs Temperature: 97.8 F Pulse Rate: 97 Blood Pressure: 96/73 Respiratory Rate: 18 Pulse Ox: 96 Oxygen Delivery Method: Room Air Assessment Airway patent: Yes Spontaneous unlabored respirations: Yes Mental status: Awake and Calm nausea: No Vomiting: No Anesthesia Complication: No Fluid Hydration Crystalloid volume administer (ml): 700 Total IV fluid infused: 700 Progress Note Anesthesia document: Postop Eval 1 completed: Yes 08/24/241441 <Electronically signed by Azeem Coffman > Date _ Azeem Fernandez Signature: Date CC: ~ [facility]igned [facility] Work Phone: Consult note Author [facility] Note Date/Time August 24, 2024 3:28 pm [facility] Medical Records Department [address] [place] [address] Anesthesia Postop Eval II 08/24/24 1517 MR#: [id number] Acct: [id number] Name: NANETTE SKY LEON Rep #:[id number] : 1960 63 From: Jose Eduardo Lovelace MD PCP: Maile Chun, DESULFURIZER HAND-C Status:REG S DC Y Race: C Location: [place] [address] Anesthesia Postop Eval I Sum Postop Eval Completion status Anesthesia document: Postop Eval 1 completed: Yes Anesthesia Postop Eval I Summary Anesthesia Postop Eval I Summary: Anesthesia Postop Eval I: Assessment Summary Airway patent Yes 08/24/24 14:42 [email or web address] Spontaneous unlabored Yes 08/24/24 14:42 [email or web address] respirations Mental status Awake,Calm 08/24/24 14:42 [email or web address] nausea No 08/24/24 14:42 [email or web address] Vomiting No 08/24/24 14:42 [email or web address] Anesthesia Postop Eval I: Fluid Summary Crystalloid volume administer 700 08/24/24 14:42 [email or web address] (ml) Colloids volume administered ( ml) Blood Product volume administered (ml) Total IV fluid infused 700 08/24/24 14:42 [email or web address] Anesthesia Postop Eval I: Summary Notes Anesthesia Complication No 08/24/24 14:42 [email or web address] Anesthesia Complication Comment: Post-operative progress note Anesthesia: Postop Eval II Evaluation Mental status: Awake Pain Level: 0 nausea: No Vomiting: No 08/24/24 3969 <Electronically signed by Jose Eduardo Lovelace MD > Date _ Jose Eduardo Lovelace MD Cosign Signature: Date CC: ~ Signed [facility] Work Phone: Evaluation note* Diagnosis Postablative hypothyroidism- Primary Other postablative hypothyroidism documented in [facility] encounter [facility] Chief Complaint and Reason for Visit Chief Complaint Admit Date ESTABLISH CARE June 12, 2024 1:00 pm XRAY June 13, 2024 11:1 0am SCREENING June 15, 2024 7:26 am Reason for Visit Admit Date Does not have primary care provider Apri kem 2024 1:00pm History of partial colectomy June 12, 2024 1:00pm Screening for colon cancer June 12 1:00pm Chief Complaint Admit Date ESTABLISH CARE June 12, 2024 1:00 pm XRAY June 13, 2024 11:1 0am SCREENING June 15, 2024 7:26 am BLOATING NAUSEA FATIGUE June 28, 2024 8:36am Unspecified abdominal pain June 28, 2 025 10:05am Reason for Visit Admit Date Does not have primary care provider Apri kem 2024 1:00pm History of partial colectomy June 12, 2024 1:00pm Screening for colon cancer June 12 1:00pm Abdominal pain June 28, 2024 8:3 6am Hx of diverticulitis of colon June 8:36am Abdominal pain August 24, 2024 12:0 9pm History of partial colectomy August 24, 2024 12:09pm Hx of diverticulitis of colon August 24, 2024 12:09pm Screening for colon cancer August 24 12:09pm Chief Complaint Admit Date ESTABLISH CARE June 12, 2024 1:00 pm XRAY June 13, 2024 11:1 0am SCREENING June 15, 2024 7:26 am BLOATING NAUSEA FATIGUE June 28, 2024 8:36am Unspecified abdominal pain June 28, 2 025 10:05am Test Results September 19, 2024 7:28a m Reason for Visit Admit Date Does not have primary care provider Mayelin brownlee 2024 1:00pm History of partial colectomy June 12, 2024 1:00pm Screening for colon cancer June 12 1:00pm Abdominal pain June 28, 2024 8:3 6am Hx of diverticulitis of colon June 8:36am Abdominal pain August 24, 2024 12:0 9pm History of partial colectomy August 24, 2024 12:09pm Hx of diverticulitis of colon August 24, 2024 12:09pm Screening for colon cancer August 24 12:09pm Fatty liver September 19, 2024 7:28a m Summary Purpose Family History No Family History Records FoundNo Family History Records Found Advance Directives No Advanced Directives Records Found Advance Directive Response Recorded Date/ Time Do you have a Healthcare Power of 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 No August 21, 2024 2:28pm Additional Source Comments Source Comments (unrecognize d section and content) In the event this informatio n is protected by the Federal Confidentiality of Alcohol and Drug Abuse Patient Records regulations: The Federal rules restrict any use of the information to criminally investigate or prosecute any alcohol or drug abuse patient.[facility] Reason for Visit (unrecogniz ed section and content) Reason Comments Thyroid Problem Care Teams (unrecognized sec tion and content) Team Status: Active Member Role Status Dates LUIS Kevin Primary Care Provider Active Team Status: Inactive Member Role Status Dates BULMARO Gonzalez Attending Provider Active Start: June 12, 2024 End: June 12, 2024 Team Status: Inactive Member Role Status Dates Dr. Collin Delgado MD Attending Provider Active S tart: June 13, 2024 End: June 13, 2024 Team Status: Inactive Member Role Status Dates LUIS Kevin Attending Provider Active Start: June 13, 2024 End: June 13, 2024 LUIS Kevin Referring Provider Active Start: June 13, 2024 End: June 13, 2024 Team Status: Active Member Role Status Dates LUIS Kevin Primary Care Provider Active Start: June 15, 2024 LUIS Kevin Attending Provider Active Start: June 15, 2024 LUIS Kevin Referring Provider Active Start: June 15, 2024 Team Status: Inactive Member Role Status Dates LUIS Kevin Primary Care Provider Active Start: June 15, 2024 End: June 15, 2024 LUIS Kevin Attending Provider Active Start: June 15, 2024 End: June 15, 2024 LUIS Kevin Referring Provider Active Start: June 15, 2024 End: June 15, 2024 Team Status: Inactive Member Role Status Dates TITO KevinC Primary Care Provider Active Start: June 28, 2024 End: June 28, 2024 TITO KevinC Referring Provider Active Start: June 28, 2024 End: June 28, 2024 BULMARO Gonzalez Attending Provider Active Start: June 28, 2024 End: June 28, 2024 Team Status: Inactive Member Role Status Dates TITO KevinC Primary Care Provider Active Start: June 28, 2024 End: June 28, 2024 BULMARO Gonzalez Attending Provider Active Start: June 28, 2024 End: June 28, 2024 BULMARO Gonzalez Referring Provider Active Start: June 28, 2024 End: June 28, 2024 Team Status: Inactive Member Role Status Dates Dr. Dante Villela DO Attending Provider Active Start: August 24, 2024 End: August 24, 2024 LUIS Kevin Primary Care Provider Active Start: August 24, 2024 End: August 24, 2024 LUIS Kevin Referring Provider Active Start: August 24, 2024 End: August 24, 2024 Team Status: Active Member Role Status Dates Dr. Dante Villela DO Attending Provider Active Start: August 24, 2024 Dr. Dante Villela DO Other Provider Active St art: August 24, 2024 LUIS Kevin Primary Care Provider Active Start: August 24, 2024 LUIS Kevin Referring Provider Active Start: August 24, 2024 Team Status: Active Member Role/Relationship Status Dates TITO KevinC Primary Care Provider Active Team Status: Inactive Member Role/Relationship Status Dates BULMARO Gonzalez Attending Provider Active Start: June 12, 2024 End: June 12, 2024 Team Status: Inactive Member Role/Relationship Status Dates Dr. Collin Delgado MD Attending Provider Active S tart: June 13, 2024 End: June 13, 2024 Team Status: Inactive Member Role/Relationship Status Dates TITO KevinC Attending Provider Active Start: June 13, 2024 End: June 13, 2024 Maile Adiel , DESULFURIZER HAND-C Referring Provider Active Start: June 13, 2024 End: June 13, 2024 Team Status: Inactive Member Role/Relationship Status Dates Maile Chun DESULFURIZER HAND-C Primary Care Provider Active Start: June 15, 2024 End: June 15, 2024 Maile Chun DESULFURIZER HAND-C Attending Provider Active Start: June 15, 2024 End: June 15, 2024 Maile Chun DESULFURIZER HAND-C Referring Provider Active Start: June 15, 2024 End: June 15, 2024 Team Status: Inactive Member Role/Relationship Status Dates Maile Chun DESULFURIZER HAND-C Primary Care Provider Active Start: June 28, 2024 End: June 28, 2024 Maile Chun DESULFURIZER HAND-C Referring Provider Active Start: June 28, 2024 End: June 28, 2024 BULMARO Gonzalez Attending Provider Active Start: June 28, 2024 End: June 28, 2024 Team Status: Inactive Member Role/Relationship Status Dates Maile Chun DESULFURIZER HAND-C Primary Care Provider Active Start: June 28, 2024 End: June 28, 2024 BULMARO Gonzalez Attending Provider Active Start: June 28, 2024 End: June 28, 2024 BULMARO Gonzalez Referring Provider Active Start: June 28, 2024 End: June 28, 2024 Team Status: Inactive Member Role/Relationship Status Dates Dr. Dante Villela DO Attending Provider Active Start: August 24, 2024 End: August 24, 2024 Maile Chun DESULFURIZER HAND-C Primary Care Provider Active Start: August 24, 2024 End: August 24, 2024 Maile Chun NP-C Referring Provider Active Start: August 24, 2024 End: August 24, 2024 Team Status: Active Member Role/Relationship Status Dates Dr. Dante Villela DO Attending Provider Active Start: August 24, 2024 Dr. Dante Villela DO Other Provider Active St art: August 24, 2024 Maile Chun DESULFURIZER HAND-C Primary Care Provider Active Start: August 24, 2024 Maile Chun DESULFURIZER HAND-C Referring Provider Active Start: August 24, 2024 Team Status: Inactive Member Role/Relationship Status Dates Maile Chun DESULFURIZER HAND-C Primary Care Provider Active Start: September 19, 2024 End: September 19, 2024 LUIS Kevin Referring Provider Active Start: September 19, 2024 End: September 19, 2024 BULMARO Gonzalez Attending Provider Active Start: September 19, 2024 End: September 19, 2024 Goals (unrecognized section and content) Goals may be documented in a n alternate sectionGoals may be documented in an alternate section INFORMATION SOURCE (unrecogn ized section and content) DATE CREATED AUTHOR 08/17/[address] [facility] DATE CREATED AUTHOR 'S ZAID KUNZ 10/28/2024 [facility] FOR RECORDS PERTAINING TO PATIENTS WHO ARE OR HAVE BEEN ENROLLED IN A CHEMICAL DEPENDENCY/SUBSTANCEABUSE PROGRAM, SOME INFORMATION MAY BE OMITTED. This clinical summary was aggregated from multiple sources. Caution should be exercised in using it in the provision of clinical care. This summary normalizes information from multiple sources, and as a consequence, information in this document may materially change the coding, format and clinical context of patient data. In addition, data may be omitted in some cases. CLINICAL DECISIONS SHOULD BE BASED ON THE PRIMARY CLINICAL RECORDS. [employer] provides no warranty or guarantee of the accuracy or completeness of information in this document.
== END | disposition home or self-care (01) ==
PROVIDERS: PCP Nurse Practitioner Family; Referring Provider Student in an Organized Health Care Education/Training Program; Visit Provider Student in an Organized Health Care Education/Training Program
DX: K76.0 Fatty (change of) liver, not elsewhere classified (principal)
CPT/HCPCS: 76705; 76981

== ENCOUNTER → 2024-11-06 | Outpatient (CLI) | payer MEDICARE, SELFPAY ==
--- OUTSIDE RECORDS SUMMARY | 2024-11-06 07:59 | XMS RPT_ITS | CCD ---
Author Organization [facility] CliniSywi Care Team Providers Care Project Facilitator Name Role Phone Unavailable Primary Care Provider Unavailabl e Bushra Carmona Attending Provider Dr. Collin Delgado MD Attending Provider Adiel SALES & SERVICE ASSOCIATE-C, Maile Attending Provider Adiel SALES & SERVICE ASSOCIATE-C, Maile Referring Provider Adiel SALES & SERVICE ASSOCIATE-C, Maile Primary Care Provider SELF Referring Unavailable LAWRENCE FINCH Attending Unavaila LAWRENCE Zhao Referring Unavaila Bushra Subramanian Referring Provider Dr. Dante Villela DO Attending Provider Dr. Dante Villela DO Other Provider Adiel SALES & SERVICE ASSOCIATE-C, Maile Primary Care Provider Adiel SALES & SERVICE ASSOCIATE-CMaile Referring Provider Bushra Carmona Attending Provider Bushra Carmona Referring Provider Dr. Collin Delgado MD Attending Provider Adiel Maile Primary Care Unavailable Dante Villela Attending Unavailable Maile Chun Referring Unavailable Adiel, Maile Primary Care Unavailable Bushra May Attending Unavailable Maile Chun Referring Unavailable Maile Chun Attending Unavailable Bianca Chunyn Referring Unavailable Adiel, Maile Primary Care Unavailable Bushra May Referring Unavailable Bushra May Attending Unavailable Adiel, Maile Primary Care Unavailable Adiel, Maile Attending Unavailable Bianca Chunyn Referring Unavailable Bushra May Referring Unavailable Maile Chun Primary Care Unavailable Bushra May Attending Unavailable Collin Delgado Attending Unavailable Maile Chun Primary Care Unavailable Bushra May Attending Unavailable Bushra May Referring Unavailable Thiago Cruz Attending Unavailable Maile Chun Primary Care Unavailable Maile Chun Primary Care Unavailable Friend, Dante Consulting Unavailable Friend, Dante Attending Unavailable Maile Chun Referring Unavailable Collin Dlegado Attending Unavailable Maile Chun Primary Care Unavailable Bushra May Attending Unavailable Maile Chun Referring Unavailable Allergies Allergy Classification Reported Allergen(s) Allergy Type Date of Onset Reaction(s) Facility (2 sources) Penicillins; Translations: [PENICILLINS] Drug Allergy 04-03-2008 Unknown [facility] Work Phone: (6 sources) Penicillin G Drug Allergy 06-12-2024 Other [facility] (1 source) Penicillin Drug Allergy 08-21-2024 [facility] Repository Medications Current Medications Medication Drug Class(es) [...] day. Active cabergoline 0.5 mg oral tablet (5 sources) Ergot Derivative Start: 08-21-2024 Cabergoline 0.5 [...] Active levothyroxine sodium 0.112 mg oral tablet (7 sources) l-Thyroxine Start: 11-08-19 22 take 1 tablet by mouth once daily Levothyroxine (Synthroid) 112 mcg tablet Active 112 ug PO daily June 12, 2024 12:00am Sodium,Potassium,Mag Sulfates (6 sources) Start: 06-13-19 25 Sodium,Potassium,Mag Sulfates (Suprep [...] omeprazole 20 mg delayed release oral capsule (3 sources) Proton Pump Inhibitor Star t: 0712-01 25 take 1 capsule by mouth once daily Omeprazole 20 mg capsule,delayed release(DR/EC) Active 20 mg PO daily 30 September 19, 2024 12:00am polyethylene glycol 3350 02624 mg powder for oral solution (6 sources) Osmotic Laxative Star t: 040 04-02 25 Polyethylene Glycol 3350 (Miralax) 17 gram/dose powder Active 4 g PO ONCE June 12, 2024 12:00am VITAMIN D2-VITAMIN K1 ORAL (1 source) VITAMIN D2-VITAM IN K1 ORAL Take by mouth. Active Problems Active Problems Problem Classification Problem Date Documented Da te Episodic/Chronic Abdominal pain (12 sources) Abdominal pain; Translations: [Unspecified abdominal pain] Onset: 08-03-2024 06-28-2024 Episodic Administrative/social admission (10 sources) Support system deficit; Translations: [Other problems [...] Onset: 10-02-2008 10-02-2008 Chronic Other gastrointestinal disorders (12 sources) History of diverticulitis; Translations: [Personal history of other diseases of the digestive system] 06-28-2024 Episodic Other gastrointestinal disorders (2 sources) Personal history of other diseases of the digestive system; Translations: [Personal history of other diseases of the digestive system] Onset: 06-28-2024 Episodic Other liver diseases (6 sources) Steatosis of liver; Translations: [Fatty (change of) liver, not elsewhere classified] 09-19-2024 Chronic Other liver diseases (1 source) Fatty (change of) liver, not elsewhere classified; Translations: [Fatty (change of) liver, not elsewhere classified] Onset: 11-02-2024 Chronic Other screening for suspected conditions (not mental disorders or infectious disease) (19 sources) Patient encounter status; Translations: [Encounter for screening for malignant neoplasm of colon] Onset: 06-20-2024 06-12-2024 Episodic Residual codes; unclassified (14 sources) History of partial resection of colon; [...] to medical facilities and other health care] Unclassified (2 sources) History of umbilical hernia repair Unclassified (2 sources) Z98.890 - Other specified postprocedural states,Z87.19 - Personal history of other diseases of the digestive system Past or Other Problems Problem Classification Problem Date Documented Date Episodic/Chronic Acquired foot deformities (1 source) Bunion; Translations: [Bunion of left foot] Onset: 01-31-2012 01-31-2012 Episodic Nonspecific chest pain (1 source) Chest pain, unspecified; Translations: [Chest pain, unspecified] Onset: 06-18-2024 Episodic Residual codes; unclassified (2 sources) History of repair of umbilical hernia; Translations: [Other specified postprocedural states] Onset: 03-11-2011 09-19-2024 Episodic Results Test Name Value Interpretation Reference Range Facility HIP, UNI W/ Pelvis 2-3 Views on 11-02-2024 HIP, UNI W/ Pelvis 2-3 Views [facility] Imaging Services [address] [place] [id number] HIP, UNI W/ Pelvis 2-3 Views MR#: [id number] Acct: [id number] Name: NANETTE SKY LEON Rep #: [id number] : 1960 F 64 From: Chris Lr PCP: LUIS Kevin Status: DEP AMB Study: HIP, UNI W/ Pelvis 2-3 Views Date of Exam: Exam# [id number] Ordering Dr: Maile Chun SALES & SERVICE ASSOCIATEJagjitC PROCEDURE: HIP, UNI W/ PELVIS 2-3 VIEWS 11/02/2024 REASON FOR EXAM: PAIN, NO INJURY TECHNIQUE: HIP, UNI W/ PELVIS 2-3 VIEWS Laterality: Right COMPARISON: Abdomen and pelvis CT of 06/28/2024 RAD/HIP, UNI W/ Pelvis 2-3 Views IMPRESSION: Postsurgical changes are seen of the pelvis. Prominent degenerative changes are seen of the visualized lower lumbar spine. Pseudoarticulation of the right L5 transverse process is seen the right sacroiliac joint, which may also be a source of pain. Otherwise, mild sacroiliac joint degenerative changes are seen. Mild bilateral hip joint degenerative changes are noted, without significant joint narrowing. No evidence of femoral head osteonecrosis. No fracture or dislocation is seen. Reading Location: [place] [address] CC: LUIS Chun Marine Steamfitter: Signed [facility] ABD Limited w/ Elastographyo n 10-29-2024 ABD Limited w/ Elastography [facility] Imaging Services [address] [place], [place] [address] ABD Limited w/ Elastography MR#: [id number] Acct: [id number] Name: NANETTE SKY LEON Rep #: [id number] : 1960 F 64 From: Bob platt MD PCP: LUIS Kevin Status: REG CLI Study: ABD Limited w/ Elastography Date of Exam: 10/12 11/05 Exam# [id number] Ordering Dr: Bushra May PROCEDURE: ABD LIMITED W/ ELASTOGRAPHY REASON FOR EXAM: FATTY LIVER COMPARISON: Prior CT scan of the abdomen and pelvis dated June 28, 2024. TECHNIQUE: Right upper quadrant abdominal ultrasound. Linda ElastQ Imaging shear wave elastography for non- invasive assessment of liver tissue stiffness. Linda EPIQ Elite. FINDINGS: LIVER: Size: Unremarkable Length: 17.9 cm Echotexture: Diffusely echogenic suggesting fatty infiltration Contour: Normal Lesions: None identified Elastography: EQI Med: 8.0 kPa EQI Med Maurice: 1.62 m/s IQR/Med: 16.2 %* GALLBLADDER: Surgically absent. COMMON BILE DUCT: Normal measuring 4 mm . PANCREAS: Visualized portions are unremarkable. The distal body and tail are obscured by bowel gas. Visualized portions of the right kidney are unremarkable. No right upper quadrant ascites. US/ABD Limited w/ Elastography IMPRESSION: Muhr-co-czkrxkna hepatic fibrosis. Borderline hepatomegaly. Fatty infiltration of the liver. Reference Values: SRU <1.37 m/s (5.7kPa): No to mild fibrosis 1.37 m/s - 2.2 m/s: Moderate to severe fibrosis >2.2 m/s (15kPa): Significant fibrosis / cirrhosis METAVIR Score F2 or higher: 1.34 m/s (5.7kPa) F3 or higher: 1.55 m/s (7.3kPa) F4: 1.80 m/s (10kPa) * If the IQR/Med is >30%, the variance in the measurements is a large and the accuracy of the measurement may be in question. Reading Location: [id number] CC: LUIS Chun; BULMARO Gonzalez Marine Steamfitter: Signed [facility] Gastroenterology Visit Repor ton 09-19-2024 Gastroenterology Visit Report [facility] Gastroenterology [address] [place] [address] OFFICE VISIT Date of Service: 09/19/24 MR#: [id number] Acct: [id number] Name: NANETTE SKY Rep #: [id number] : 1960 Provider: BULMARO Gonzalez Age/Sex: 64/F Location: [facility] Status: Signed Intake Vital Signs 08/24/24 12:15 [...] office visit and reports no medication changes. [facility] Medical History Hypothyroid Arthritis Thyroid disease Migraine [...] anastomosis, characterized by healthy appearing mucosa. OV 7.9.25 Pt here today to discuss findings of [...] cooperative, healthy appearing and comfortable Orientation: alert HENMT Head: normal to inspection Eyes General: appearance [...] serrated p (more content not included)... [facility] Colonoscopy Reporton 025 Colonoscopy Report [facility] Medical Records Department [address] [place] [address] Colonoscopy Report MR#: [id number] Acct: [id number] Name: NANETTE SKY LEON Rep #: [id number] : 1960 63 From: Dante Villela DO PCP: TITO KevinC Status:REG [facility] Patient Name: Nanette Sky [...] for surveillance. Procedure Code(s): --- Professional --- 58228, Colonoscopy, flexible; with biopsy, single or multiple CPT copyright 2021 [employer]. All rights reserved. The codes documented in this report are preliminary and upon test grader review may be revised to meet current compliance requirements. Dante Villela DO 08/24/2024 2:51:30 PM This report has been signed electronically. Number of Addenda: 0 Note Initiated On: 08/24/2024 2:15 PM 08/24/24 1451 Date Dante Villela DO Cosigner Signature: Date (if indicated) CC: SALES & SERVICE ASSOCIATEJose Manuel Chun; Dante Villela DO Date Dictated: 08/24/24 1415 Date Transcribed: Marine Steamfitter: ALVERTO Signed [facility] EGD Reporton 08-24-2024 EGD Report [facility] Medical Records Department [address] [place] [address] EGD Report MR#: [id number] Acct: [id number] Name: NANETTE SKY LENO Rep #: [id number] : 1960 63 From: Dante Villela DO PCP: LUIS Kevin Status:REG [facility] Patient Name: Nanette Sky [...] pathology results. Procedure Code(s): --- Professional --- 51254, Small intestinal endoscopy, enteroscopy beyond second portion of duodenum, not including ileum; with biopsy, single or multiple CPT copyright 2021 [employer]. All rights reserved. The codes documented in this report are preliminary and upon test grader review may be revised to meet current compliance requirements. Dante Villela DO 08/24/2024 2:42:29 PM This report has been signed electronically. Number of Addenda: 0 Note Initiated On: 08/24/2024 1:51 PM 08/24/24 1442 Date Dante Villela DO Cosigner Signature: Date (if indicated) CC: SALES & SERVICE ASSOCIATE-C Maile Chun; Dante Villela DO Date Dictated: 08/24/24 1351 Date Transcribed: Marine Steamfitter: ALVERTO Signed [facility] MR/POSTOP.[facility] 08-24-2024 MR/POSTOP.[facility] Medical Records Department [address] [place] [address] Anesthesia Postop Eval I 08/24/24 1441 MR#: [id number] Acct: [id number] Name: NANETTE SKY LEON Rep #: [id number] : 1960 63 From: Azeem Coffman PCP: LUIS Kevin Status:REG SDC Y Race: C Location: [place] [address] Anesthesia: Postop Eval I Current Vital Signs [...] Postop Eval 1 completed: Yes 08/24/24 1442 Date Azeem Belcherer Flynnigner Signature: Date CC: Signed [facility] MR/[id number] 08-24-2024 MR/POSTOPAN2 [facility] Medical Records Department [address] [place] [address] Anesthesia Postop Eval II 08/24/24 1517 MR#: [id number] Acct: [id number] Name: NANETTE SKY LEON Rep #: [id number] : 1960 63 From: Jose Eduardo Lovelace MD PCP: LUIS Kevin Status:REG SDC Y Race: C Location: [place] [address] Anesthesia Postop Eval I Sum Postop Eval [...] Level: 0 nausea: No Vomiting: No 08/24/24 1517 Date Jose Eduardo Fernandez Signature: Date CC: Signed [facility] Surgery Specimen Level Sathya 08-24-2024 Surgery Specimen Level IV -------- Patient Age/Sex Location Account Attending Physician -------- NANETTE SKY 63/F EN [id number] Dante Villela DO -------- Specimen: [id number] Received: 08/27/24 Status: RAFITA Coronado Num: [id number] Spec Type: EGD BIOPSY Subm Dr: Dante Villela DO HEADER OPERATION: Colonoscopy, EGD, biopsy PRE-OP DIAGNOSIS: [...] Duodenum, random, biopsy: Normal villous morphology with Yza gland hyperplasia and focal gastric mucin cell [...] Attending Physician -------- NANETTE SKY 63/F EN [id number] Dante Villela DO -------- soft tissue that in aggregate measure [...] totally submitted in one cassette. Namrata 08/27/2024 CPT:67721p8 -------- Patient Age/Sex Location Account Attending Physician -------- NANETTE SKY 63/F EN [id number] Dante Villela DO -------- Signed (signature on file) Dr. Nanci Melo MD 09/04/24 1010 -------- [facility] Comment on above: Performed By: #### P SUBEE #### [facility] Laboratory [address] [place], [address] Abdomen/Pelvis WITH Contrast on 06-28-2024 Abdomen/Pelvis WITH Contrast [facility] Imaging Services [address] [place] [address] Abdomen/Pelvis WITH Contrast MR#: [id number] Acct: [id number] Name: NANETTE SKY Rep #: [id number] : 1960 F 63 From: Bob platt MD PCP: LUIS Kevin Status: REG CLI Study: Abdomen/Pelvis WITH Contrast Date of Exam: Exam# [id number] Ordering Dr: Bushra May PROCEDURE: ABDOMEN/PELVIS WITH [...] and hysterectomy. Status post appendectomy. [facility] CC: LUIS Chun; BULMARO Gonzalez Marine Steamfitter: Signed [facility] Gastroenterology Visit Repor ton 06-28-2024 Gastroenterology Visit Report [facility] Gastroenterology [address] [place] [address] OFFICE VISIT Date of Service: 06/28/24 MR#: [id number] Acct: [id number] Name: NANETTE SKY LEON Rep #: [id number] : 1960 Provider: BULMARO Gonzalez Age/Sex: 63/F Location: [facility] Status: Signed Intake Vital Signs 06/28/24 09:10 [...] Appearance: average body habitus and well nourished [facility] Head: normal to inspection Ears: hearing grossly [...] Risk Screening/Assistive (more content not included)... [facility] Breast imaging reportOrdered By: Sandra Gifford on 06-19-2024 Study report [facility] Imaging Services [address] [place] [address] SCRN MAMM (CAD)W/JELENA BILAT MR#: [id number] Acct: [id number] Name: NANETTE SKY Rep #: [id number] : 1960 F 63 From: Caroline Gifford MD PCP: LUIS Kevin Status: [facility] Study:SCRN MAMM (CAD)W/JELENA BILAT Date of Exa m: 06/15/24 Exam# [id number] Ordering Dr: Nadia Chun EXAM: SCRN MAMM [...] be mailed to the patient. Reading Location: [facility] CC: LUIS Chun ~ Marine Steamfitter: Signed [facility] CRP, High Sensitivity [id number] on 06-15-2024 CRP, HIGH SENS 2.98 mg/L Normal 0.00-3.00 [facility] Comment on above: Result Comment: Rela tive Risk for Future Cardiovascular Event Low <1.00 Average 1.00 - 3.00 High >3.00 Performed at: - [facility] [id number] Cab Starter: Tanmay Beatty PhD, Phone: [phone] Performed By: #### L 100.3225, S4094.4350, L513.3565 #### [facility] Laboratory [address] [place] [address], [id number] SCRN MAMM (CAD)W/JELENA BILATo n 06-15-2024 SCRN MAMM (CAD)W/JELENA BILAT [facility] Imaging Services [address] [place] [address] SCRN MAMM (CAD)W/JELENA BILAT MR#: [id number] Acct: [id number] Name: NANETTE SKY LEON Rep #: [id number] : 1960 F 63 From: Sandra Gifford MD PCP: LUSI Kevin [facility] Study: SCRN MAMM (CAD)W/JELENA BILAT Date of Exam: 07/06 Exam# [id number] Ordering Dr: Maile Chun EXAM: SCRN MAMM [...] be mailed to the patient. Reading Location: [facility] CC: LUIS Chun Marine Steamfitter: Signed [facility] Absolute lymphocyte countOrd ered By: Maile Chun on 06-13-2024 Lymphocytes Auto (Unsp spec) [#/Vol] 1.45 10*3/uL 0.83-4.51 [facility] Absolute neutrophil countOrd ered By: Maile Chun on 06-13-2024 Neutrophils (Bld) [#/Vol] 3.7 10*3/uL 2.0-7.7 [facility] Anion gap in Serum or Plasma Ordered By: Maile Chun on 06-13-2024 Anion gap [Moles/Vol] 11 mmol/L 5-15 [facility] Automated lymphocyte count a s percentage of total leukocytesOrdered By: Maile Chun on 06-13-2024 Lymphocytes/100 WBC Auto (Unsp spec) 25.0 % 19-41 [facility] BUN/creatinine ratioOrdered By: Maile Chun on 06-13-2024 Urea nitrogen/Creatinine [Mass ratio] 20.3 mg/mg High 10-20 [facility] Basophil percentageOrdered B y: Maile Chun on 06-13-2024 Basophils/100 WBC (Bld) 0.9 % 0-1 [facility] Bilirubin, totalOrdered By: Maile Chun on 06-13-2024 Bilirubin [Mass/Vol] 0.48 mg/dL 0.00-1.30 [facility] C-reactive protein measureme nt by high sensitivity methodOrdered By: Maile Chun on 06-13-2024 C-Reactive Protein High Sensitivity 2.98 mg/L 0.00-3.00 [facility] Comment on above: Relative Risk for Fu ture Cardiovascular Event Low <1.00 Average 1.00 - 3.00 High >3.00Performed at: - [facility] [address] [id number] Director: Tanmay Beatty PhD, Phone: [phone] C-reactive protein measurement by high sensitivity method 2.98 mg/L 0.00-3.00 [facility] Comment on above: Relative Risk for Fu ture Cardiovascular Event Low <1.00 Average 1.00 - 3.00 High >3.00Performed at: [facility] [place] [place] [id number] [place], [place] [id number] Director: Tanmay Beatty PhD, Phone: [phone] CBC W/Diff, Automatedon 04-0 Absolute Lymph 1.45 X10 3/uL Normal 0.83-4.51 [facility] Comment on above: Performed By: #### L 100.0100, L3100.7870, L500.4050 #### [facility] Laboratory [address] [place], [address] Absolute Neut 3.7 X10 3/uL Normal 2.0-7.7 [facility] Comment on above: Performed By: #### L 100.0100, L3100.7870, L500.4050 #### [facility] [address] [place], [address] Basophils/100 WBC (Bld) 0.9 % Normal 0-1 [facility] Comment on above: Performed By: #### L 100.0100, L3100.7870, L500.4050 #### [facility] [address] [place], [address] Eosinophils/100 WBC (Bld) 2.9 % Normal 0-5 [facility] Comment on above: Performed By: #### L 100.0100, L3100.7870, L500.4050 #### [facility] [address] [place], [address] Erythrocyte distribution width (RBC) [Ratio] 12.5 % Normal 11.6-14.6 [facility] Comment on above: Performed By: #### L 100.0100, L3100.7870, L500.4050 #### [facility] [address] [place], [address] Hematocrit (Bld) [Volume fraction] 44.4 % Normal 37-47 [facility] Comment on above: Performed By: #### L 100.0100, L3100.7870, L500.4050 #### [facility] [address] [place], [address] Hemoglobin (Bld) [Mass/Vol] 14.6 g/dL Normal 12.0-15.0 [facility] Comment on above: Performed By: #### L 100.0100, L3100.7870, L500.4050 #### [facility] [address] [place], [address] IG% 0.300 Normal 0.0-0.9 [facility] Comment on above: Result Comment: IG% - Immature Granulocytes (promyelocytes, myelocytes and metamyelocytes) > 1% indicates that a LEFT SHIFT is Present. Performed By: #### L 100.0100, L3100.7870, L500.4050 #### [facility] [address] [place], [address] Lymphocytes/100 WBC (Bld) 25.0 % Normal 19-41 [facility] Comment on above: Performed By: #### L 100.0100, L3100.7870, L500.4050 #### [facility] [address] [place], [address] MCH (RBC) [Entitic mass] 31.3 pg Normal 27.0-32.0 [facility] Comment on above: Performed By: #### L 100.0100, L3100.7870, L500.4050 #### [facility] [address] [place], [address] MCHC (RBC) [Mass/Vol] 32.9 g/dL Normal 32-36 [facility] Comment on above: Performed By: #### L 100.0100, L3100.7870, L500.4050 #### [facility] [address] [place], [address] MCV (RBC) [Entitic vol] 95.1 fL Normal 81-99 [facility] Comment on above: Performed By: #### L 100.0100, L3100.7870, L500.4050 #### [facility] [address] [place], [address] Monocytes/100 WBC (Bld) 6.6 % Normal 0-10 [facility] Comment on above: Performed By: #### L 100.0100, L3100.7870, L500.4050 #### [facility] [address] [place], [address] Neutrophils/100 WBC (Bld) 64.3 % Normal 47-70 [facility] Comment on above: Performed By: #### L 100.0100, L3100.7870, L500.4050 #### [facility] [address] [place], [address] Nucleated RBC (Bld) [#/Vol] 0 10*3/uL Normal 0-5 [facility] Comment on above: Performed By: #### L 100.0100, L3100.7870, L500.4050 #### [facility] [address] [place], [address] Platelet mean volume (Bld) [Entitic vol] 8.7 fL Normal 6.2-12.0 [facility] Comment on above: Performed By: #### L 100.0100, L3100.7870, L500.4050 #### [facility] [address] [place], [address] Platelets (Bld) [#/Vol] 271 10*3/uL Normal 150-450 [facility] Comment on above: Performed By: #### L 100.0100, L3100.7870, L500.4050 #### [facility] [address] [place], [address] RBC (Bld) [#/Vol] 4.67 10*6/uL Normal 4.2-5.4 [facility] Comment on above: Performed By: #### L 100.0100, L3100.7870, L500.4050 #### [facility] [address] [place], [address] RDW SD 43.5 fl Normal 35.1-43.9 [facility] Comment on above: Performed By: #### L 100.0100, L3100.7870, L500.4050 #### [facility] [address] [place], [address] WBC (Bld) [#/Vol] 5.8 10*3/uL Normal 4.4-11.0 [facility] Comment on above: Performed By: #### L 100.0100, L3100.7870, L500.4050 #### [facility] [address] [place], [address] Carbon dioxide, total [Moles /volume] in Central venous bloodOrdered By: Maile Chun on 06-13-2024 CO2 [Moles/Vol] 28.1 mmol/L 21.0-32.0 [facility] Cerv Spine 4 or 5 Viewson Cerv Spine 4 or 5 Views [facility] Imaging Services [address] [place] [address] Cerv Spine 4 or 5 Views MR#: [id number] Acct: [id number] Name: NANETTE SKY LEON Rep #: [id number] : 1960 F 63 From: Bob platt MD PCP: Status: DEP AMB Study: Cerv Spine 4 or 5 Views Date of Exam: 06/13/24 Exam# [id number] Ordering Dr: Maile Chun SALES & SERVICE ASSOCIATE-C PROCEDURE: CERV SPINE 4 OR 5 VIEWS [...] IMPRESSION: MODERATE CERVICAL DEGENERATIVE CHANGES. Reading Location: [place] [address] CC: SALES & SERVICE ASSOCIATE-C Maile Chun Marine Steamfitter: Signed Normal [facility] Chloride assayOrdered By: Serena Chun on 06-13-2024 Chloride [Moles/Vol] 104 mmol/L 98-108 [facility] Comprehensive Metabolic Prof ilon 06-13-2024 Albumin [Mass/Vol] 4.4 g/dL Normal 3.4-4.8 [facility] Comment on above: Performed By: #### L 100.0100, L3100.7870, L500.4050 #### [facility] [address] [place], [address] Albumin/Globulin [Mass ratio] 1.6 {ratio} Normal 0.9-2.4 [facility] Comment on above: Performed By: #### L 100.0100, L3100.7870, L500.4050 #### [facility] [address] [place], [address] ALK PHOS 73 U/L Normal 35-104 [facility] Comment on above: Performed By: #### L 100.0100, L3100.7870, L500.4050 #### [facility] [address] [place], [address] ALT [Catalytic activity/Vol] 21 U/L Normal <=34 [facility] Comment on above: Performed By: #### L 100.0100, L3100.7870, L500.4050 #### [facility] [address] [place], [address] AST [Catalytic activity/Vol] 22 U/L Normal <=31 [facility] Comment on above: Performed By: #### L 100.0100, L3100.7870, L500.4050 #### [facility] [address] [place], [address] Bilirubin [Mass/Vol] 0.48 mg/dL Normal 0.00-1.30 [facility] Comment on above: Performed By: #### L 100.0100, L3100.7870, L500.4050 #### [facility] [address] [place], [address] BUN/CRE 20.3 RATIO High 10-20 [facility] Comment on above: Performed By: #### L 100.0100, L3100.7870, L500.4050 #### [facility] [address] [place], [address] Calcium [Mass/Vol] 9.2 mg/dL Normal 7.6-11.0 [facility] Comment on above: Performed By: #### L 100.0100, L3100.7870, L500.4050 #### [facility] [address] [place], [address] Chloride [Moles/Vol] 104 mmol/L Normal 98-108 [facility] Comment on above: Performed By: #### L 100.0100, L3100.7870, L500.4050 #### [facility] [address] [place], [address] CO2 [Moles/Vol] 28.1 mmol/L Normal 21.0-32.0 [facility] Comment on above: Performed By: #### L 100.0100, L3100.7870, L500.4050 #### [facility] [address] [place], [address] Creatinine [Mass/Vol] 0.80 mg/dL Normal 0.70-1.20 [facility] Comment on above: Performed By: #### L 100.0100, L3100.7870, L500.4050 #### [facility] [address] [place], [address] GAP 11 Normal 5-15 [facility] Comment on above: Performed By: #### L 100.0100, L3100.7870, L500.4050 #### [facility] [address] [place], [address] GFR/1.73 sq M.predicted among non-blacks MDRD (S/P/Bld) [Vol rate/Area] 81 mL/min/{1.73_m2} Normal >60 [facility] Comment on above: Result Comment: mL/m in/1.73m2 CKD-EPI Creatinine Equation (2020) Performed By: #### L 100.0100, L3100.7870, L500.4050 #### [facility] [address] [place], [address] Globulin (S) [Mass/Vol] 2.8 g/dL Normal 2.2-4.2 [facility] Comment on above: Performed By: #### L 100.0100, L3100.7870, L500.4050 #### [facility] [address] [place], [address] Glucose [Mass/Vol] 95 mg/dL Normal 70-99 [facility] Comment on above: Performed By: #### L 100.0100, L3100.7870, L500.4050 #### [facility] [address] [place], [address] Potassium [Moles/Vol] 4.4 mmol/L Normal 3.3-5.1 [facility] Comment on above: Performed By: #### L 100.0100, L3100.7870, L500.4050 #### [facility] [address] [place], [address] Sodium [Moles/Vol] 142 mmol/L Normal 133-145 [facility] Comment on above: Performed By: #### L 100.0100, L3100.7870, L500.4050 #### [facility] [address] [place], [address] T PROT 7.2 g/dL Normal 5.9-8.4 [facility] Comment on above: Performed By: #### L 100.0100, L3100.7870, L500.4050 #### [facility] [address] [place], [address] Urea nitrogen [Mass/Vol] 16 mg/dL Normal 4-19 [facility] Comment on above: Performed By: #### L 100.0100, L3100.7870, L500.4050 #### [facility] [address] [place], [address] Eosinophil percentageOrdered By: Maile Chun on 06-13-2024 Eosinophils/100 WBC (Bld) 2.9 % 0-5 [facility] Erythrocyte distribution wid th (RBC) [Ratio]Ordered By: Maile Chun on 06-13-2024 Erythrocyte distribution width (RBC) [Entitic vol] 43.5 fL 35.1-43.9 [facility] Erythrocyte distribution wid th ratioOrdered By: Maile Chun on 06-13-2024 Erythrocyte distribution width (RBC) [Ratio] 12.5 % 11.6-14.6 [facility] Erythrocyte distribution wid th standard deviationOrdered By: Maile Chun on 06-13-2024 Erythrocyte distribution width (RBC) [Ratio] 43.5 fl 35.1-43.9 [facility] GFR/1.73 sq M.predicted oleksandr g non-blacks MDRD (S/P/Bld) [Vol rate/Area]Ordered By: Maile Chun on 06-13-2024 Estimated GFR (MDRD) Non-Af Amer 81 >60 [facility] Comment on above: mL/min/1.73m2 CKD-EP I Creatinine Equation (2020) Glomerular filtration rate ( GFR) estimation/1.73 sq m using serum, plasma, or whole bOrdered By: Maile Chun on 06-13-2024 GFR/1.73 sq M.predicted among non-blacks MDRD (S/P/Bld) [Vol rate/Area] 81 mL/min/{1.73_m2} >60 [facility] Comment on above: mL/min/1.73m2 CKD-EP I Creatinine Equation (2020) Hematocrit Auto (Bld) [Volum e fraction]Ordered By: Maile Chun on 06-13-2024 Hematocrit (Bld) [Volume fraction] 44.4 % 37-47 [facility] Hemoglobin measurementOrdere d By: Maile Chun on 06-13-2024 Hemoglobin (Bld) [Mass/Vol] 14.6 g/dL 12.0-15.0 [facility] Immature granulocytes/100 WB C Auto (Bld)Ordered By: Maile Chun on 06-13-2024 Immature granulocytes/100 WBC (Bld) 0.300 % 0.0-0.9 [facility] Comment on above: IG% - Immature Granu locytes (promyelocytes, myelocytes and metamyelocytes) > 1% indicates that a LEFT SHIFT is Present. Laboratory - Chemistry and C hemistry - challengeOrdered By: Maile Chun on 06-13-2024 AST [Catalytic activity/Vol] 22 U/L <32 [facility] Lymphocytes Auto (Unsp spec) [#/Vol]Ordered By: Maile Chun on 06-13-2024 Lymphocytes (Bld) [#/Vol] 1.45 10*3/uL 0.83-4.51 [facility] Lymphocytes/100 WBC Auto (Un sp spec)Ordered By: Maile Chun on 06-13-2024 Lymphocytes/100 WBC (Bld) 25.0 % 19-41 [facility] MCV (mean corpuscular volume ) determinationOrdered By: Maile Chun on 06-13-2024 MCV (RBC) [Entitic vol] 95.1 fL 81-99 [facility] Mean corpuscular hemoglobin (MCH) determinationOrdered By: Maile Chun on 06-13-2024 MCH (RBC) [Entitic mass] 31.3 pg 27.0-32.0 [facility] Mean corpuscular hemoglobin concentration (MCHC) determinationOrdered By: Maile Chun on 06-13-2024 MCHC (RBC) [Mass/Vol] 32.9 g/dL 32-36 [facility] Mean platelet volume determi nationOrdered By: Maile Chun on 06-13-2024 Platelet mean volume (Bld) [Entitic vol] 8.7 fL 6.2-12.0 [facility] Monocyte percentageOrdered B y: Maile Chun on 06-13-2024 Monocytes/100 WBC (Bld) 6.6 % 0-10 [facility] Neutrophil percentageOrdered By: Maile Chun on 06-13-2024 Neutrophils/100 WBC (Bld) 64.3 % 47-70 [facility] Nucleated red blood cell per centageOrdered By: Maile Chun on 06-13-2024 Nucleated RBC/100 WBC (Bld) [Ratio] 0 % 0-5 [facility] Platelet countOrdered By: Serena Chun on 06-13-2024 Platelets (Bld) [#/Vol] 271 10*3/uL 150-450 [facility] Potassium (Unsp spec) [Mass/ Vol]Ordered By: Maile Chun on 06-13-2024 Potassium [Moles/Vol] 4.4 mmol/L 3.3-5.1 [facility] Potassium measurement (mass/ volume)Ordered By: Maile Chun on 06-13-2024 Potassium (Unsp spec) [Mass/Vol] 4.4 mmol/L 3.3-5.1 [facility] RBC Auto (Bld) [#/Vol]Ordere d By: Maile Chun on 06-13-2024 RBC (Bld) [#/Vol] 4.67 10*6/uL 4.2-5.4 [facility] Serum creatinine measurement (mass/volume)Ordered By: Maile Chun on 06-13-2024 Creatinine [Mass/Vol] 0.80 mg/dL 0.70-1.20 [facility] Serum globulin measurementOr dered By: Maile Chun on 06-13-2024 Globulin (S) [Mass/Vol] 2.8 g/dL 2.2-4.2 [facility] Serum glucose measurement (m ass/volume)Ordered By: Maile Chun on 06-13-2024 Glucose [Mass/Vol] 95 mg/dL 70-99 [facility] Serum or plasma alanine hatfield otransferase (ALT) measurementOrdered By: Maile Chun on 06-13-2024 ALT [Catalytic activity/Vol] 21 U/L <35 [facility] Serum or plasma albumin daniele urement (mass/volume)Ordered By: Maile Chun on 06-13-2024 Albumin [Mass/Vol] 4.4 g/dL 3.4-4.8 [facility] Serum or plasma albumin/glob ulin mass ratioOrdered By: Maile Chun on 06-13-2024 Albumin/Globulin [Mass ratio] 1.6 {ratio} 0.9-2.4 [facility] Serum or plasma alkaline marianela sphatase measurementOrdered By: Maile Chun on 06-13-2024 ALP [Catalytic activity/Vol] 73 U/L 35-104 [facility] Serum or plasma calcium daniele urement (mass/volume)Ordered By: Maile Chun on 06-13-2024 Calcium [Mass/Vol] 9.2 mg/dL 7.6-11.0 [facility] Serum or plasma urea nitroge n measurement (mass/volume)Ordered By: Maile Chun on 06-13-2024 Urea nitrogen [Mass/Vol] 16 mg/dL 4-19 [facility] Sodium levelOrdered By: Lynette Chun on 06-13-2024 Sodium [Moles/Vol] 142 mmol/L 133-145 [facility] Total proteinOrdered By: Navjot Chun on 06-13-2024 Protein [Mass/Vol] 7.2 g/dL 5.9-8.4 [facility] White blood cell (WBC) count Ordered By: Maile Chun on 06-13-2024 WBC (Bld) [#/Vol] 5.8 10*3/uL 4.4-11.0 [facility] CNOVon 06-12-2024 CNOV Office Visit (ENWSTR ) NANETTE SKY ([id number]) 1960 F Date Time Provider Department 06/12/24 8:00 AM LAWRENCE FINCH During your visit today, we recorded the [...] care for postablative hypothyroidism. She moved from [place], [place] in Jan 2024 Hyperthyroidism: - Diagnosed in 2016; underwent radioactive ablation 2-3 years later. - Currently on Synthroid; last thyroid labs in September were normal. 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 Current treatment: 112 [...] for her. Was recently prescribed Progesterone by [facility] for sleep but it caused breast tenderness after a few doses so she stopped. She was also noted to have mildly elevated prolactin level on panel done by [facility]. This was repeated fasting for confirmation and [...] apr Nontoxic uninodular goiter s/P FNA in 2008, benign PAST SURGICAL HISTORY: PAST SURGICAL HISTORY Procedure Laterali (more content not included)... Normal [facility] Gastroenterology Visit Repor ton 06-12-2024 Gastroenterology Visit Report [facility] [address] [place] [address] OFFICE VISIT Date of Service: 06/12/24 MR#: [id number] Acct: [id number] Name: NANETTE SKY Rep #: [id number] : 1960 Provider: BULMARO Gonzalez Age/Sex: 63/F Location: [facility] Status: Signed Intake Intake Visit Reasons: ESTABLISH [...] Appearance: average body habitus and well nourished [facility] Head: normal to inspection Ears: hearing grossly [...] female pt here today for establishment with [facility] to be scheduled for colonoscopy and EGD. Pt recently moved to [place] from [place] and wanted to become established with a [...] not have a PCP since moving to [place]. Referral sent to internal medicine. -Colonoscopy and EGD -SuPrep sent -Continue miralax as needed -Referred to internal medicine -f/u after procedure (2) Screening for colon cancer: Status: Acute (3) History of partial colectomy: Status: Acute Orders: Referrals Internal Medicine Z75.8 - Other p (more content not included)... Normal [facility] No Panel Informationon 06-12 Interpretation and review of laboratory results Normal [facility] PROLACTINon 06-12-2024 Prolactin [Mass/Vol] 14.5 ng/mL 4.4 - 3 3.8 ng/mL [facility] Comment on above: Prolactin test is pe rformed using the [employer] Electrochemiluminescence Immunoassay method. Results obtained with different methods or kits cannot be used interchangeably. Prolactin SerPl-mCncon 06-12 Prolactin [Mass/Vol] 14.5 ng/mL Normal 4.4-33.8 [facility] Comment on above: Order Comment: Speci men Type: BLOOD SPECIMEN Ordering Facility: [facility] Address: [address] [place] [address] Result Comment: Prol actin test is performed using the [employer] Electrochemiluminescence Immunoassay method. Results obtained with different methods or kits cannot be used interchangeably. Performed By: #### 2 842-3, 3024-7, 3016-3 #### [facility] CLIA [id number] [address] [place] [address] [place] T4 FREE/FREE THYROXINEon 04- 01-2025 Free T4 [Mass/Vol] 1.5 ng/dL 0.9 - 1.7 ng/dL [facility] T4 Free SerPl-mCncon 025 Free T4 [Mass/Vol] 1.5 ng/dL Normal 0.9-1.7 [facility] Comment on above: Order Comment: Speci men Type: BLOOD SPECIMEN Ordering Facility: [facility] Address: [address] [place] [address] Performed By: #### 2 842-3, 3024-7, 3016-3 #### [facility] CLIA [id number] [address] [place] [address] [place] THYROID STIMULATING HORMONEo n 06-12-2024 TSH Qn 1.5 m[IU]/L [facility] TSH SerPl-aCncon 06-12-2024 TSH Qn 1.500 m[IU]/L Normal 0.270-4.20 0 [facility] Comment on above: Order Comment: Speci men Type: BLOOD SPECIMEN Ordering Facility: [facility] Address: [address] [place] [address] Performed By: #### 2 842-3, 3024-7, 3016-3 #### [facility] CLIA [id number] [address] [place] [address] [place] Vital Signs Date Time Vital Sign Value Performing Clinician Mati marsh 11-02-2024 08:46-0400 Body height 182.88 cm Maile Chun NP-C Work Phone: [facility] 08-24-2024 14:55-0400 Body temperature 98.3 [degF] Maile Chun NP-C Work Phone: [facility] 08-24-2024 14:55-0400 Diastolic blood pressure 74 mm[Hg] Maile Chun NP-C Work Phone: [facility] 08-24-2024 14:55-0400 Heart rate 94 /min Maile Chun NP-C Work Phone: [facility] 08-24-2024 14:55-0400 Respiratory rate 16 /min Maile Chun SALES & SERVICE ASSOCIATE-C Work Phone: [facility] 08-24-2024 14:55-0400 SaO2% (BldA) [Mass fraction] 97 % Maile Chun SALES & SERVICE ASSOCIATE-C Work Phone: [facility] 08-24-2024 14:55-0400 Systolic blood pressure 114 mm[Hg] Maile Adiel SALES & SERVICE ASSOCIATE-C Work Phone: [facility] 08-24-2024 12:15-0400 Body height 182.88 cm Maile Holguinam SALES & SERVICE ASSOCIATE-C Work Phone: [facility] 08-24-2024 12:15-0400 Body mass index (BMI) [Ratio] 27.8 kg/m2 Maile Adiel SALES & SERVICE ASSOCIATE-C Work Phone: [facility] 08-24-2024 12:15-0400 Body weight 93 kg Maile Chun SALES & SERVICE ASSOCIATE-C Work Phone: [facility] 06-28-2024 09:10-0400 Body weight 95.48 kg Maile Holguinam SALES & SERVICE ASSOCIATE-C Work Phone: [facility] 06-12-2024 08:11-0400 Body mass index (BMI) [Ratio] 27.97 kg/m2 Lawrence Finch MD Work Phone: [facility] 06-12-2024 08:11-0400 Body temperature 97 [degF] Lawrence Finch MD Work Phone: [facility] 06-12-2024 08:11-0400 Body weight 96.16 kg Lawrence Finch MD Work Phone: [facility] 06-12-2024 08:11-0400 Diastolic blood pressure 78 mm[Hg] Lawrence Finch MD Work Phone: [facility] 06-12-2024 08:11-0400 Heart rate 93 /min Lawrence Finch MD Work Phone: [facility] 06-12-2024 08:11-0400 SaO2% (BldA) [Mass fraction] 93 % Lawrence Finch MD Work Phone: [facility] 06-12-2024 08:11-0400 Systolic blood pressure 116 mm[Hg] Lawrence Finch MD Work Phone: [facility] Encounters Encounter Date Encounter Type Care Provider Facility Start: 11-06-2024 ambulatory Bushra May Facili ty:[facility] Start: 11-02-2024 End: 11-02-[address] Collin Delgado MD -[facility] Start: 11-02-2024 End: 11-02-2024 ambulatory Maile Chun SALES & SERVICE ASSOCIATE-C Work Phone: -[facility] Start: 10-29-2024 End: 10-29-2024 ambulatory Maile Chun SALES & SERVICE ASSOCIATE-C Work Phone: -Ultrasound [facility] Start: 10-29-2024 End: 10-29-2024 Patient encounter procedure Bushra May PA -Ultrasound [facility] Work Phone: Start: 10-29-2024 End: 10-29-2024 ambulatory Maile Chun Facility:[facility] Start: 09-19-2024 End: 09-19-2024 Patient encounter procedure Bushra May PA -[facility] Work Phone: Start: 09-19-2024 End: 09-19-2024 ambulatory Maile Chun SALES & SERVICE ASSOCIATE-C Work Phone: [facility] Start: 08-24-2024 ambulatory Maile Chun Facility :[facility] Start: 08-24-2024 Non-patient / Non-visit Dante Zuñiga nd DO -[facility] Start: 08-24-2024 End: 08-24-2024 Admission to same day surgery center Dante Villela DO -Endoscopy Work Phone: Start: 08-24-2024 End: 08-24-2024 ambulatory Maile Chun SALES & SERVICE ASSOCIATE-C Work Phone: [facility] Work Phone: Start: 06-28-2024 End: 06-28-2024 Patient encounter procedure Bushra CHAMBERLAIN -Cat Scan [facility] Work Phone: Start: 06-28-2024 End: 06-28-2024 Patient encounter procedure Bushra CHAMBERLAIN -[facility] Work Phone: Start: 06-28-2024 End: 06-28-2024 ambulatory Maile Chun Facility:[facility] Start: 06-28-2024 End: 06-28-2024 ambulatory Bushra May Facility:[facility] Start: 06-15-2024 End: 06-15-2024 ambulatory Maile Chun SALES & SERVICE ASSOCIATE-C Work Phone: [facility] Work Phone: Start: 06-15-2024 End: 06-15-2024 Patient encounter procedure Maile Chun SALES & SERVICE ASSOCIATE-C -Outpatient Breast Imaging Work Phone: Start: 06-15-2024 End: 06-15-2024 ambulatory Maile Chun Facility:[facility] Start: 06-13-2024 End: 06-13-2024 ambulatory Maile Chun SALES & SERVICE ASSOCIATE-C Work Phone: [facility] Work Phone: Start: 06-13-2024 End: 06-13-2024 Patient encounter procedure Maile Chun SALES & SERVICE ASSOCIATE-C -Laboratory, Specimen Work Phone: Start: 06-13-2024 End: 06-13-[address] Collin Delgado MD -[facility] Start: 06-13-2024 End: 06-13-2024 ambulatory Collin Delgado Facility:[facility] Start: 06-12-2024 End: 06-13-2024 ambulatory LAWRENCE FINCH Facility:[facility] Start: 06-12-2024 End: 06-12-2024 Patient encounter procedure Lawrence Finch MD Work Phone: Endocrinology Comment on above: Postablative hypothy roidism (Primary Dx) Procedures Date Procedure Procedure Detail Performing Clinician Start: 11-02-2024 Plain x-ray of pelvi s and lower extremity Maile Chun NP-C Work Phone: Start: 10-29-2024 Ultrasound elastogra phy of liver Maile Chun SALES & SERVICE ASSOCIATE-C Work Phone: Start: 08-24-2024 Colonoscopy Maile schwab SALES & SERVICE ASSOCIATE-C Work Phone: Start: 06-28-2024 Computed tomography of abdomen and pelvis with contrast Maile Chun SALES & SERVICE ASSOCIATE-C Work Phone: Start: 06-15-2024 Screening mammography C mercedez Chun SALES & SERVICE ASSOCIATE-C Work Phone: Start: 06-13-2024 X-ray of cervical spine Maile Chun SALES & SERVICE ASSOCIATE-C Work Phone: Start: 01-25-2020 Colonoscopy Lawrence andersen MD Work Phone: Start: 05-30-2015 Lipid 1996 panel - S umang or Plasma Lawrence Finch MD Work Phone: Plan of Treatment Date Care Activity Detail Author Start: 2033 RSV Vaccine (1 - 1-dose 75+ series) RSV Vaccine (1 - 1-dose 75+ series) [facility] Start: 04-07-2027 Urine microalbumin profile DTaP,Tdap,Td Vaccine (3 - Td or Tdap) [facility] Start: 01-24-2025 Screening for malignant neoplasm of breast Mammogram Screening [facility] Start: 11-02-2024 Plain x-ray of pelvi s and lower extremity HIP, UNI W/ Pelvis 2-3 Views [facility] Start: 09-11-2024 End: 09-11-2024 Patient encounter procedure 09/11/2024 4:20 PM EDT Office Visit Endocrinology [address] [place] [address] Lawrence Finch MD [address] [place] [address] 3 month follow up Endocrinology Comment on above: 3 month follow up Start: 08-24-2024 Colonoscopy w/biopsy single/multiple COLONOSCOPY AND BIOPSY [facility] Start: 08-24-2024 Egd transoral biopsy single/multiple EGD BIOPSY SINGLE/MULTIPLE [facility] Start: 08-24-2024 Patient discharge [facility] Start: 06-15-2024 Screening mammography SCRN CHARLES M (CAD)W/JELENA BILAT [facility] Start: 06-12-2024 Patient referral [facility] Work Phone: Start: 03-14-2024 Advance Directive Discussion Advance Directive Discussion [facility] Start: 11-13-2023 Covid-19 Vaccine () Covid-19 Vaccine () [facility] Start: 11-13-2023 Influenza vaccination Influenza Vacc ine (#1) [facility] Start: 09-10-2021 Diabetes Screening Diabetes Screenin g [facility] Start: 01-24-2021 Screening for malignant neoplasm of colon [facility] Start: 05-29-2020 Lipid panel Lipid Screening [facility] Start: 06-02-2016 Screening for malignant neoplasm of colon Fecal Occult Blood [facility] Start: 2008 Pneumococcal Vaccine : 50+ (1 of 1 - PCV) Pneumococcal Vaccine: 50+ (1 of 1 - PCV) [facility] Start: 09-18-2003 Screening for malignant neoplasm of colon [facility] Start: 1976 Anxiety Screening Anxiety Screening [facility] Start: 1976 Depression Screening Depression Scre ening [facility] Start: 1976 Hepatitis C screening Hepatitis C Sc reening [facility] Start: 1976 HIV screening HIV Screening [facility] Liver stiffness by US.transient elastography [facility] Patient referral [facility] Work Phone: Payers Date Payer Category Payer Medicare [id number] 2024 Self-pay 2024 Unknown [id number] 2024 [employer] BLUE CARD PPO OOS [id number] 2024 Unknown [id number] Medicare [id number] Unknown [id number] Unknown [id number] [id number] Unknown [id number]. 2.462 Unknown [id number]. 2.462 Unknown [id number]. 2.462 Unknown [id number] Unknown [id number] [id number]. 2.462 Unknown [id number] [id number]. 2.462 Unknown [id number] [id number]. 2.462 Unknown [id number] [id number]. 2.462 Unknown [id number] [id number]. 2.462 Unknown [id number]. 2.462 Social History Date Type Detail Facility Start: 08-21-2024 End: 11-02-2024 Tobacco smoking status NHIS Never smoked tobacco [facility] Start: 06-12-2024 Alcoholic beverage intake [facility] of [facility] (finding[facility] [facility] Start: 06-12-2024 History of Social function [facility] Start: 06-12-2024 Tobacco use panel [facility] Work Phone: Start: 1960 Sex assigned at Not on file C [facility] Tobacco smoking status NHIS Unknown if ever smoked [facility] Work Phone: Start: 06-18-2024 End: 06-20-2024 Sex Female (finding) [facility] Start: 1960 Sex Assigned At Female [facility] NEGATED: Highlighted row Not [facility] Medical Equipment Procedure Code Equipment Code Equipment Origin al Text Equipment Identifier Dates Bit Drl Gld 110m m 2.5mm Ss Qc - [id number] Start: 01-31-2012 Bit Drl 125mm 2m m Ss Qc Ns - [id number] Start: 01-31-2012 Wire Fix .062in 5in Cwr Ss Spd - [id number] Start: 01-31-2012 Wire Fix .045in 5in Cwr Ss - [id number] Start: 01-31-2012 Wire Fix .062in 5in Cwr Ss Spd - [id number] Start: 01-31-2012 Goals Date Patient Goal Desired Activity /State Mental Status Date Assessment Result Facility 08-24-2024 Cognitive function Voice/Name [facility] Work Phone: Clinical Notes 06-12-2024 to 10-29-2024 Note Date & Type Note Facility 10-29-2024 Radiology Diagnostic study note [facility] Imaging Services [address] [place], [place] [address] ABD Limited w/ Elastography MR#: [id number] Acct: [id number] Name: NANETTE SKY LEON Rep #: [id number] : 1960 F 64 From: Isaac Dhillon MD PCP: Maile Chun SALES & SERVICE ASSOCIATE-C Status: REG C LI Study:ABD Limited w/ Elastography Date of Exa m: 10/29/24 Exam# [id number] Ordering Dr: Bushra May PROCEDURE: ABD LIMITED W/ ELASTOGRAPHY REASON FOR EXAM: FATTY LIVER COMPARISON: Prior CT scan of the abdomen and pelvis dated June 28, 2024. TECHNIQUE: Right upper quadrant abdominal ultrasound. Linda ElastQ Imaging shear wave elastography for non-invasive assessment of liver tissue stiffness. Linda EPIQ Elite. FINDINGS: LIVER: Size: Unremarkable Length: 17.9 cm Echotexture: Diffusely echogenic suggesting fatty infiltration Contour: Normal Lesions: None identified Elastography: EQI Med: 8.0 kPa EQI Med Maurice: 1.62 m/s IQR/Med: 16.2 %* GALLBLADDER: Surgically absent. COMMON BILE DUCT: Normal measuring 4 mm . PANCREAS: Visualized portions are unremarkable. The distal body and tail are obscured by bowel gas. Visualized portions of the right kidney are unremarkable. No right upper quadrant ascites. US/ABD Limited w/ Elastography IMPRESSION: [id number] hepatic fibrosis. Borderline hepatomegaly. Fatty infiltration of the liver. Reference Values: SRU <1.37 m/s (5.7kPa): No to mild fibrosis 1.37 m/s - 2.2 m/s: Moderate to severe fibrosis >2.2 m/s (15kPa): Significant fibrosis / cirrhosis METAVIR Score F2 or higher: 1.34 m/s (5.7kPa) F3 or higher: 1.55 m/s (7.3kPa) F4: 1.80 m/s (10kPa) * If the IQR/Med is >30%, the variance in the measurements is a large and the accuracy of the measurement may be in question. Reading Location: [facility] CC: LUIS Chun; BULMARO Gonzalez ~ Marine Steamfitter: Signed [facility] 08-24-2024 Consult note [facility] 08-24-2024 History and physi nathaniel note Note Date/Time August 24, 2024 1:21pm [facility] Medical Records Department [address] [place] [address] History & Physical Exam 08/24/24 1320 MR#: [id number] Acct: [id number] Name: NANETTE SKY Rep #:[id number] : 1960 63 From: Dante Villela DO PCP: Maile Chun SALES & SERVICE ASSOCIATEJose Manuel Status:REG S DC Location: [place] [address] HPI - General General Date of Admission: [...] when she had diverticulitis with an abscess. [facility] Medical History Hypothyroid Arthritis Thyroid disease Migraine [...] CC: LUIS Chun; Dante Villela DO~ Signed [facility] Work Phone: 1(771) 792-864006-13-2025 Procedure note [facility] Medical Records Department [address] [place] [address] Colonoscopy Report MR#: [id number] Acct: [id number] Name: NANETTE SKY Rep #:[id number] : [...] for surveillance. Procedure Code(s): --- Professional --- 99250, Colonoscopy, flexible; with biopsy, single or multiple CPT copyright 2021 [employer]. All rights reserved. The codes documented in this report are preliminary and upon test grader review may be revised to meet current compliance requirements. Dante Villela DO 08/24/2024 2:51:30 PM This report has been signed electronically. Number of Addenda: 0 Note Initiated On: 08/24/2024 2:15 PM 08/24/24 1451 Date _ Dante López Signature: Date (if indicated) CC: SALES & SERVICE ASSOCIATE-C Maile Chun; Dante Villela DO ~ Date Dictated: 08/24/24 1415 Date Transcribed: Marine Steamfitter: RF Signed [facility]06-13-2025 Procedure note [facility] Medical Records Department [address] [facility] [place] [address] Operative Report - CC Letter MR#: [id number] Acct: [id number] Name: NANETTE SKY Rep #:[id number] : 1960 63 From: Dante Villela DO PCP: LUIS Kevin Status:REG S DC 08/24/2024 Luis Kevin Re : Colonoscopy procedure for Nanette Sky Josefina Chun This procedure was performed on Saturday, August [...] This report has been signed electronically. 08/24/24 2366 Date _ Dante Friend DO Cosigner Signature: Date (if indicated) CC: SALES & SERVICE ASSOCIATE-Nadia Chun; Dante Villela, ~ Date Dictated: 08/24/24 1415 Date Transcribed: Marine Steamfitter: RF Signed [facility]06-13-2025 Consult note Author Jose Eduardo Lovelace [facility] Note Date/Time August 24, 2024 12:5 1pm [facility] Medical Records Department [address] [place] [address] Pre-Anesthesia Evaluation 08/24/24 1250 MR#: [id number] Acct: [id number] Name: NANETTE SKY Rep #:[id number] : 1960 63 From: Jose Eduardo Lovelace MD PCP: LUIS Kevin Status:REG S DC Y Race: C Location: [place] [address] ASA Classification* ASA Classification ASA Classification: 2 [...] EGD, CSCOPE Anesthesia History 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 Hx Hospitalization No 08/21/24 14:28 Any Problems [...] take am of surgery PONV 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 Female Yes 08/21/24 14:28 HX of Motion [...] 08/24/24 12:15 Respiratory Assessment Respiratory Assessment - 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: Respiratory Tract Infection Hx - 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 Hx Respiratory Tract Infection No 08/21/24 14:28 STOP Sleep Apnea STOP Sleep Apnea - 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: STOP Sleep Apnea - 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 Hx Hypertension No 08/21/24 14:28 Hx Sleep [...] Tobacco Use History Tobacco Use 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: 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 Use 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 Tobacco Use Smoking Status Never smoker 08/21/24 14:28 Hx Tobacco Use No 08/21/24 14:28 Years Smoking Packs Smoked per Day Smoking Cessation Date was within the last 15 years Hx Smoking Cessation Date Hx Smoking Cessation Counseling Hematologic Medial History 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 Hx of Blood Transfusion No 08/21/24 14:28 [...] confused, unrespo /Reproduction History /Reproductive 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 Procedure Code(s): --- Professional --- 51072, Small intestinal endoscopy, enteroscopy beyond second portion of duodenum, not including ileum; with biopsy, single or multiple CPT copyright 2021 [employer]. All rights reserved. The codes documented in this report are preliminary and upon test grader review may be revised to meet current compliance requirements. Dante Villela DO 08/24/2024 2:42:29 PM This report has been signed electronically. Number of Addenda: 0 Note Initiated On: 08/24/2024 1:51 PM 08/24/24 1442 Date _ Dante López Signature: Date (if indicated) CC: LUIS Chun; Dante Villela DO ~ Date Dictated: 08/24/24 1351 Date Transcribed: Marine Steamfitter: RF Signed [facility]06-13-2025 Procedure note [facility] Medical Records Department [address] [place] [address] Operative Report - CC Letter MR#: [id number] Acct: [id number] Name: NANETTE SKY Rep #:[id number] : 1960 63 From: Dante Villela DO PCP: LUIS Kevin Status:REG S DC 08/24/2024 Luis Kevin Re : Upper GI endoscopy procedure for Nanette Sky Josefina Chun This procedure was performed on Saturday, August [...] This report has been signed electronically. 08/24/24 1442 Date _ Dantedevon Lpóez Signature: Date (if indicated) CC: SALES & SERVICE ASSOCIATE-C Maile Chun; Dante Villela, ~ Date Dictated: 08/24/24 1351 Date Transcribed: Marine Steamfitter: RF Signed [facility]06-13-2025 Consult note [facility] Medical Records Department [address] [place] [address] Anesthesia Postop Eval I 08/24/24 1441 MR#: [id number] Acct: [id number] Name: NANETTE SKY Rep #:[id number] : 1960 63 From: Azeem Coffman PCP: LUIS Kevin Status:REG S DC Y Race: C Location: [place] [address] Anesthesia: Postop Eval I Current Vital Signs [...] Azeem Fernandez Signature: Date CC: ~ Signed [facility]06-13-2025 Evaluation note* Diagnosis Onset Date Resolution Status Admit Date Abdominal pain acute August 24, 2024 12:09pm History of partial colectomy acute August 24, 2024 12:09pm Hx of diverticulitis of colon acute August 24, 2024 12:09pm Screening for colon cancer acute August 24, 2024 12:09pm Fatty liver acute September 19 7:28am Hx of diverticulitis of colon acute Lucinda 9th, 2025 7:28am Screening for colon cancer acute September 19, 2024 7:28am [facility] Work Phone: 1(589) 817-230606-13-2025 History and physical note [facility] Medical Records Department [address] [place] [address] History & Physical Exam 08/24/24 1320 MR#: [id number] Acct: [id number] Name: NANETTE SKY LEON Rep #:[id number] : 1960 63 From: Dante Villela DO PCP: Maile Chun SALES & SERVICE ASSOCIATE-C Status:REG S DC Location: [place] [address] HPI - General General Date of Admission: [...] when she had diverticulitis with an abscess. [facility] Medical History Hypothyroid Arthritis Thyroid disease Migraine [...] 08/24/24 1321 Cosigner Signature (if applicable): CC: LUIS Chun; Dante Villela DO~ Signed [facility]06-13-2025 [facility] Medical Records Department [address] [place] [address] History Physical Exam 08/24/24 1320 MR#: [id number] Acct: [id number] Name: NANETTE SKY LEON Rep #: [id number] : 1960 63 From: Dante Villela DO PCP: LUIS Kevin Status:REG [facility] Location: [place] [address] HPI - General General Date of Admission: [...] when she had diverticulitis with an abscess. [facility] Medical History Hypothyroid Arthritis Thyroid disease Migraine [...] 08/24/24 1321 Cosigner Signature (if applicable): CC: SALES & SERVICE ASSOCIATE-C Maile Chun; Dante Villela, [facility] Consult note [facility] Medical Records Department [address] [place] [address] Pre-Anesthesia Evaluation 08/24/24 1250 MR#: [id number] Acct: [id number] Name: NANETTE SKY LEON Rep #:[id number] : 1960 63 From: Jose Eduardo Lovelace MD PCP: LUIS Kevin Status:REG S DC Y Race: C Location: [place] [address] ASA Classification* ASA Classification ASA Classification: 2 [...] EGD, CSCOPE Anesthesia History 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 Hx Hospitalization No 08/21/24 14:28 Any Problems [...] take am of surgery PONV 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 Female Yes 08/21/24 14:28 HX of Motion [...] 08/24/24 12:15 Respiratory Assessment Respiratory Assessment - 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: Respiratory Tract Infection Hx - 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 Hx Respiratory Tract Infection No 08/21/24 14:28 STOP Sleep Apnea STOP Sleep Apnea - 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: STOP Sleep Apnea - 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 Hx Hypertension No 08/21/24 14:28 Hx Sleep [...] Tobacco Use History Tobacco Use 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: Tobacco Use 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 Tobacco Use Smoking Status Never smoker 08/21/24 14:28 Hx Tobacco Use No 08/21/24 14:28 Years Smoking Packs Smoked per Day Smoking Cessation Date was within the last 15 years Hx Smoking Cessation Date Hx Smoking Cessation Counseling Hematologic Medial History 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 Hx of Blood Transfusion No 08/21/24 14:28 [...] confused, unrespo /Reproduction History /Reproductive 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: /Reproductive Hx- 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 Hx Now No 08/21/24 14:28 Gestational Age [...] 08/24/24 1251 > Date _ Jose Eduardo Fernandez Signature: Date CC: ~ Signed [facility]04-01-2025 Evaluation note* Diagnosis Onset Date Resolution Status Admit Date Does not have primary care provider acute June 12, 2024 1:00pm History of partial colectomy acute June 12, 2024 1:00pm Screening for colon cancer acute June 12, 2024 1:00pm [facility] Work Phone: 1(132) 752-578204-01-2025 Evaluation note* Diagnosis Onset Date Resolution Status [...] colon cancer acute August 24, 2024 12:09pm [facility] Work Phone: 1(277) 477-925304-01-2025 Evaluation note* Diagnosis Onset Date Resolution Status [...] 12:09pm Fatty liver acute September 19 7:28am [facility] Work Phone: 1(419) 636-609604-01-2025 Instructions* Patient Instructions* Lawrence Finch MD - 06/12/2024 8:47 AM EDT Please do labs today Continue 112 mcg of synthroid, dose may be adjusted pending results [facility] of Present illness Narrative* Lawrence Finch MD - 06/12/2024 8:39 AM EDT Images from the original note were not included. 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 She moved from [place], [place] in Jan 2024 Hyperthyroidism: - Diagnosed in 2016; underwent radioactive ablation 2-3 years later. - Currently on Synthroid; last thyroid labs in September were normal. 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 Current treatment: 112 [...] for her. Was recently prescribed Progesterone by [facility] for sleep but it caused breast tenderness after a few doses so she stopped. She was also noted to have mildly elevated prolactin level on panel done by [facility]. This was repeated fasting for confirmation and [...] apr Nontoxic uninodular goiter s/P FNA in 2008, benign PAST SURGICAL HISTORY: PAST SURGICAL HISTORY [...] of Onset Prostate Cancer Father Gastric CA, [place], pancreatitis Stroke Mother Alzheimer's other (thyroid ca [...] Level: 4 - Moderate [facility] NoteHNO ID: [id number] Author: LAWRENCE FINCH MD Service: ? 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 She moved from [place], [place] in Jan 2024 Hyperthyroidism: - Diagnosed in 2016; underwent radioactive ablation 2-3 years later. - Currently on Synthroid; last thyroid labs in September were normal. 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 Current treatment: 112 [...] for her. Was recently prescribed Progesterone by [facility] for sleep but it caused breast tenderness after a few doses so she stopped. She was also noted to have mildly elevated prolactin level on panel done by [facility]. This was repeated fasting for confirmation and [...] apr Nontoxic uninodular goiter s/P FNA in 2008, benign PAST SURGICAL HISTORY: PAST SURGICAL HISTORY Procedure Laterality Date BOWEL RESECTION HX 2008 S/P diverticulitis COLONOSCOPY 2008, 2009 Dr. Blakely CUSTOM BASIC PRK/LASIK SURGERY both eyes 2011 FOOT SURGERY HX Left 01/2012 BUNIONECTOMY HYSTERECTOMY HX AGE 38 Partial, Ovaries in, MMR PAST SURGICAL HISTORY OF 2009 umbilical h (more content not included)...[facility] note Author Azeem Coffman [facility] Note Date/Time August 24, 2024 2:42 pm [facility] Medical Records Department [address] [place] [address] Anesthesia Postop Eval I 08/24/24 1441 MR#: [id number] Acct: [id number] Name: NANETTE SKY LEON Rep #:[id number] : 1960 63 From: Azeem Coffman PCP: Maile Chun NP-C Status:REG S DC Y Race: C Location: [place] [address] Anesthesia: Postop Eval I Current Vital Signs [...] Postop Eval 1 completed: Yes 08/24/24 1442 <Electronically signed by Azeem Coffman > Date _ Azeem Coffman Cosigner Signature: Date CC: ~ Signed [facility] Work Phone: Consult note Author Jose Eduardo Lovelace [facility] Note Date/Time August 24, 2024 3:28 pm [facility] Medical Records Department [address] [place] [address] Anesthesia Postop Eval II 08/24/24 1517 MR#: [id number] Acct: [id number] Name: NANETTE SKY LEON Rep #:[id number] : 1960 63 From: Jose Eduardo Lovelace MD PCP: Maile Chun NP-C Status:REG S DC Y Race: C Location: [place] [address] Anesthesia Postop Eval I Sum Postop Eval [...] Level: 0 nausea: No Vomiting: No 08/24/24 1517 <Electronically signed by Jose Eduardo Lovelace MD > Date _ Jose Eduardo Lovelace MD Cosigner Signature: Date CC: ~ Signed [facility] Work Phone: Evaluation note* Diagnosis Postablative hypothyroidism- Primary Other postablative hypothyroidism documented in this encounter [facility] Chief Complaint and Reason for Visit Chief Complaint Admit Date ESTABLISH CARE June 12, 2024 1:00 pm XRAY June 13, 2024 11:1 0am SCREENING June 15, 2024 7:26 am Reason for Visit Admit Date Does not have primary care provider Apri l 2024 1:00pm History of partial colectomy June 12, 2024 1:00pm Screening for colon cancer June 12 1:00pm Chief Complaint Admit Date ESTABLISH CARE June 12, 2024 1:00 pm XRAY June 13, 2024 11:1 0am SCREENING June 15, 2024 7:26 am BLOATING NAUSEA FATIGUE June 28, 2024 8:36am Unspecified abdominal pain June 28, 025 10:05am Reason for Visit Admit Date Does not have primary care provider Apri l 2024 1:00pm History of partial colectomy June [...] 2024 8:36am Unspecified abdominal pain June 28, 025 10:05am Test Results September 19, 2024 7:28a m Reason for Visit Admit Date Does not have primary care provider Apri l 2024 1:00pm History of partial colectomy June [...] Fatty liver September 19, 2024 7:28a m Chief Complaint Admit Date Test Results September 19, 2024 7:28a m FATTY LIVER October 29, 2024 7: 25am XRAY November 02, 2024 8: 46am Reason for Visit Admit Date Abdominal pain August 24, 2024 12:0 9pm History of partial colectomy August 24, 2024 12:09pm Hx of diverticulitis of colon August 24, 2024 12:09pm Screening for colon cancer August 24 12:09pm Fatty liver September 19, 2024 7:28a m Hx of diverticulitis of colon September 19, 2024 7:28am Screening for colon cancer September 19 7:28am Summary Purpose Family History No Family History Records FoundNo Family History Records Found Advance Directives No Advanced Directives Records Found Advance Directive Response Recorded Date/ Time Do you have a Healthcare Power of Culinary Specialist? No August 21, 2024 2:28pm Additional Source Comments Source Comments (unrecognize d section and content) In the event this informatio n is protected by the Federal Confidentiality of Alcohol and Drug Abuse Patient Records regulations: The Federal rules restrict any use of the information to criminally investigate or prosecute any alcohol or drug abuse patient.[facility] Reason for Visit (unrecogniz ed section and content) Reason Comments Thyroid Problem Care Teams (unrecognized sec tion and content) Team Status: Active Member Role Status Dates Maile Chun NP-C Primary Care Provider Active Team Status: Inactive Member Role Status Dates BULMARO Gonzalez Attending Provider Active Start: June 12, 2024 End: June 12, 2024 Team Status: Inactive Member Role Status Dates Dr. Collin Delgado MD Attending Provider Active S tart: June 13, 2024 End: June 13, 2024 Team Status: Inactive Member Role Status Dates Maile Chun NP-C Attending Provider Active Start: June 13, 2024 End: June 13, 2024 Maile Chun SALES & SERVICE ASSOCIATE-C Referring Provider Active Start: June 13, 2024 End: June 13, 2024 Team Status: Active Member Role Status Dates Maile Chun NP-C Primary Care Provider Active Start: June 15, 2024 Maile Chun NP-C Attending Provider Active Start: June 15, 2024 Maile Chun SALES & SERVICE ASSOCIATE-C Referring Provider Active Start: June 15, 2024 Team Status: Inactive Member Role Status Dates Maile Chun NP-C Primary Care Provider Active Start: June 15, 2024 End: June 15, 2024 Maile Chun NP-C Attending Provider Active Start: June 15, 2024 End: June 15, 2024 Maile Chun SALES & SERVICE ASSOCIATE-C Referring Provider Active Start: June 15, 2024 End: June 15, 2024 Team Status: Inactive Member Role Status Dates Maile Chun NP-C Primary Care Provider Active Start: June 28, 2024 End: June 28, 2024 Maile Chun SALES & SERVICE ASSOCIATE-C Referring Provider Active Start: June 28, 2024 End: June 28, 2024 BULMARO Gonzalez Attending Provider Active Start: June 28, 2024 End: June 28, 2024 Team Status: Inactive Member Role Status Dates Maile Chun NP-C Primary Care Provider Active Start: June 28, 2024 End: June 28, 2024 BULMARO Gonzalez Attending Provider Active Start: June 28, 2024 End: June 28, 2024 BULMARO Gonzalez Referring Provider Active Start: June 28, 2024 End: June 28, 2024 Team Status: Inactive Member Role Status Dates Dr. Dante Villela DO Attending Provider Active Start: August 24, 2024 End: August 24, 2024 Maile Chun NP-C Primary Care Provider Active Start: August 24, 2024 End: August 24, 2024 Maile Chun NP-C Referring Provider Active Start: August 24, 2024 End: August 24, 2024 Team Status: Active Member Role Status Dates Dr. Dante Villela DO Attending Provider Active Start: August 24, 2024 Dr. Dante Villela DO Other Provider Active St art: August 24, 2024 Maile Chun NP-C Primary Care Provider Active Start: August 24, 2024 Maile Chun NP-C Referring Provider Active Start: August 24, 2024 Team Status: Active Member Role/Relationship Status Dates Maile Chun NP-C Primary Care Provider Active Team Status: Inactive Member Role/Relationship Status Dates BULMARO Gonzalez Attending Provider Active Start: June 12, 2024 End: June 12, 2024 Team Status: Inactive Member Role/Relationship Status Dates Dr. Collin Delgado MD Attending Provider Active S tart: June 13, 2024 End: June 13, 2024 Team Status: Inactive Member Role/Relationship Status Dates Maile Chun NP-C Attending Provider Active Start: June 13, 2024 End: June 13, 2024 Maile Chun NP-C Referring Provider Active Start: June 13, 2024 End: June 13, 2024 Team Status: Inactive Member Role/Relationship Status Dates Maile Chun NP-C Primary Care Provider Active Start: June 15, 2024 End: June 15, 2024 Maile Chun NP-C Attending Provider Active Start: June 15, 2024 End: June 15, 2024 Maile Chun NP-C Referring Provider Active Start: June 15, 2024 End: June 15, 2024 Team Status: Inactive Member Role/Relationship Status Dates Maile Chun SALES [employer] SERVICE ASSOCIATE-C Primary Care Provider Active Start: June 28, 2024 End: June 28, 2024 Maile Chun SALES & SERVICE ASSOCIATE-C Referring Provider Active Start: June 28, 2024 End: June 28, 2024 BULMARO Gonzalez Attending Provider Active Start: June 28, 2024 End: June 28, 2024 Team Status: Inactive Member Role/Relationship Status Dates Maile Chun SALES [employer] SERVICE ASSOCIATE-C Primary Care Provider Active Start: June 28, 2024 End: June 28, 2024 BULMARO Gonzalez Attending Provider Active Start: June 28, 2024 End: June 28, 2024 BULMARO Gonzalez Referring Provider Active Start: June 28, 2024 End: June 28, 2024 Team Status: Inactive Member Role/Relationship Status Dates Dr. Dante Villela DO Attending Provider Active Start: August 24, 2024 End: August 24, 2024 Maile Chun NP-C Primary Care Provider Active Start: August 24, 2024 End: August 24, 2024 Maile Chun NP-C Referring Provider Active Start: August 24, 2024 End: August 24, 2024 Team Status: Active Member Role/Relationship Status Dates Dr. Dante Villela DO Attending Provider Active Start: August 24, 2024 Dr. Dante Villela DO Other Provider Active St art: August 24, 2024 Maile Chun SALES [employer] SERVICE ASSOCIATE-C Primary Care Provider Active Start: August 24, 2024 Maile Chun SALES [employer] SERVICE ASSOCIATE-C Referring Provider Active Start: August 24, 2024 Team Status: Inactive Member Role/Relationship Status Dates Maile Chun NP-C Primary Care Provider Active Start: September 19, 2024 End: September 19, 2024 Maile Chun SALES [employer] SERVICE ASSOCIATE-C Referring Provider Active Start: September 19, 2024 End: September 19, 2024 BULMARO Gonzalez Attending Provider Active Start: September 19, 2024 End: September 19, 2024 Team Status: Inactive Member Role/Relationship Status Dates Dr. Dante Villela DO Attending Provider Active Start: August 24, 2024 End: August 24, 2024 Maile Adiel , SALES & SERVICE ASSOCIATE-C Primary Care Provider Active Start: August 24, 2024 End: August 24, 2024 Maile Chun SALES [employer] SERVICE ASSOCIATE-C Referring Provider Active Start: August 24, 2024 End: August 24, 2024 Team Status: Active Member Role/Relationship Status Dates Dr. Dante Villela DO Attending Provider Active Start: August 24, 2024 Dr. Dante Villela DO Other Provider Active St art: August 24, 2024 Maile Chun SALES [employer] SERVICE ASSOCIATE-C Primary Care Provider Active Start: August 24, 2024 Maile Chun SALES [employer] SERVICE ASSOCIATE-C Referring Provider Active Start: August 24, 2024 Team Status: Inactive Member Role/Relationship Status Dates Maile Chun SALES & SERVICE ASSOCIATE-C Primary Care Provider Active Start: September 19, 2024 End: September 19, 2024 Maile Chun SALES & SERVICE ASSOCIATE-C Referring Provider Active Start: September 19, 2024 End: September 19, 2024 BULMARO Gonzalez Attending Provider Active Start: September 19, 2024 End: September 19, 2024 Team Status: Active Member Role/Relationship Status Dates Maile Chun SAL[employer] SERVICE ASSOCIATE-C Primary Care Provider Active Start: October 29, 2024 BULMARO Gonzalez Attending Provider Active Start: October 29, 2024 BULMARO Gonzalez Referring Provider Active Start: October 29, 2024 Team Status: Inactive Member Role/Relationship Status Dates Maile Chun SALES [employer] SERVICE ASSOCIATE-C Primary Care Provider Active Start: November 02, 2024 End: November 02, 2024 Dr. Collin Delgado MD Attending Provider Active S tart: November 02, 2024 End: November 02, 2024 Team Status: Inactive Member Role/Relationship Status Dates Maile Chun , SALES [employer] SERVICE ASSOCIATE-C Primary Care Provider Active Start: October 29, 2024 End: October 29, 2024 BULMARO Gonzalez Attending Provider Active Start: October 29, 2024 End: October 29, 2024 BULMARO Gonzalez Referring Provider Active Start: October 29, 2024 End: October 29, 2024 Goals (unrecognized section and content) Goals may be documented in a n alternate sectionGoals may be documented in an alternate section INFORMATION SOURCE (unrecogn ized section and content) DATE CREATED AUTHOR 08/17/2024 [facility] DATE CREATED AUTHOR AUTHOR'S ZAID KUNZ 11/06/2024 [facility] FOR RECORDS PERTAINING TO PATIENTS WHO ARE [...] BE BASED ON THE PRIMARY CLINICAL RECORDS. [facility]. provides no warranty or guarantee of the accuracy or completeness of information in this document.
[2024-11-06 08:48] LABS: Hematocrit 44.9 % (37-47); Hemoglobin 14.4 g/dL (12.0-15.0); Immature Granulocytes Count 0.020 X10^3/uL (0.0-0.0); Mean Corp Hgb Conc 32.1 g/dL (32-36); Mean Corpuscular Volume 96.1 fL (81-99); Mean Platelet Vol. 8.7 fl (6.2-12.0); NRBC Flagged by Analyzer 0 % (0-5); Platelet Count 331 K/mm3 (150-450); RBC Distribution Width CV 12.7 % (11.6-14.6); RBC Distribution Width SD 45.2 fl (35.1-43.9); Red Blood Count 4.67 M/mm3 (4.2-5.4); White Blood Count 7.4 K/mm3 (4.4-11.0)
[2024-11-06 09:46] LABS: CORTISOL AM 14.20 ug/dL (6.02-18.40); Cholesterol 217 mg/dL (<=200); Low Density Lipoprotein Calc. 135 mg/dL; Triglycerides 152 mg/dL; Very Low Density Lipoprotein 30 mg/dL (5-40); Vitamin D,25 Hydroxy 55.2 ng/mL (30-100); cholesterol:hdl ratio screen 4.21
[2024-11-06 09:49] LABS: AST(SGOT) 23 U/L (<=31); Alanine Aminotransfer ALT/SGPT 22 U/L (<=34); Albumin, Serum 4.3 g/dL (3.4-4.8); Alkaline Phosphatase 79 U/L (35-104); Anion Gap 13 (5-15); BUN 17 mg/dL (4-19); BUN/Creat Ratio 20.0 RATIO (10-20); Calcium,Total 9.3 mg/dL (7.6-11.0); Carbon Dioxide 25.7 mmol/L (21.0-32.0); Chloride 104 mmol/L (98-108); Globulin 2.8 g/dL (2.2-4.2); Glucose 129 mg/dL (70-99); Potassium 4.2 mmol/L (3.3-5.1)
[2024-11-06 14:31] LABS: Color, Urine Yellow (Yellow); Glucose, Dipstick Normal (Normal); Ketone-Dipstick Negative (Negative); Leukocyte Esterase-Dipstick Negative /ul (Negative); Nitrite-Dipstick Negative (Negative); Occult Blood-Urine Negative /ul (Negative); Protein-Dipstick Negative (Negative); Specific Gravity, Urine 1.015 (1.002-1.030); Urine Bilirubin Dipstick Negative (Negative)
== END | disposition home or self-care (01) ==
PROVIDERS: PCP Nurse Practitioner Family; Referring Provider Nurse Practitioner Family; Visit Provider Nurse Practitioner Family
DX: E03.9 Hypothyroidism, unspecified (principal); E78.00 Pure hypercholesterolemia, unspecified; R53.83 Other fatigue; Z13.21 Encounter for screening for nutritional disorder
CPT/HCPCS: 36415; 80053; 80061; 81002; 82306; 82533; 84443; 85025